=== PATIENT | female | born 1975 | race Caucasian/White ===

== ENCOUNTER → 2017-11-21 | Outpatient (CLI) | payer OTHER ==
[~2017-11-21] MED LIST: GADOBUTROL 7.5 MMOL/7.5 ML VIAL IV ONE; LISI2.5T PO; SITA1TAB11 PO
--- NOTE | 2017-11-21 16:03 | KCIC ---
MR of the left foot with and without contrast HISTORY: Diabetic ulcer of left foot, ulcer and proximal phalanx and MTP joint of the fifth digit for several weeks. TECHNIQUE: Routine multiplanar sequences are obtained. FINDINGS: Mild motion degradation. No evidence of bone destruction, acute fracture or marrow edema. There is subcutaneous edema and swelling along the dorsum of the foot. No abnormal fluid collection or drainable abscess. The tendons are intact. No significant tendon sheath fluid. Lisfranc ligament complex is intact as is tarsometatarsal alignment. IMPRESSION: 1. Edema/swelling along the dorsum of the foot. 2. No evidence of acute osteomyelitis or drainable abscess. Electronically signed by: Cory Steward MD (11/21/2017 3:59 PM) [facility]
== END | disposition home or self-care (01) ==
LOC: KCIC MRI 12:02
PROVIDERS: ATTEND Neuromusculoskeletal Medicine & OMM
DX: E11.621 Type 2 diabetes mellitus with foot ulcer (principal); R60.0 Localized edema
CPT/HCPCS: 73723; A9585

== ENCOUNTER 2019-09-07 23:20 | Inpatient (IN) | payer OTHER ==
[~2019-09-07] VITALS: Ht 162.6 cm; Wt 108.7 kg
[~2019-09-07 23:20] MED LIST changes: +ACET325T9 PO; +AMIT25TA PO; +ASPI325T11 PO; +ATOR40TA59 PO; +BETH10TA12 PO; +CARV12.511 PO; +CHOL100017 PO; +CLOP75TA PO; +CRESTOR5 MG PO; +CYCL10TA2 PO; +DIPH25CA58 PO; +DOXY100C2 PO; +ESCITALOPRAM OX10 MG PO; +GABA300C18 PO; +GABA600T7 PO; -GADOBUTROL 7.5 MMOL/7.5 ML VIAL IV ONE; +HYDR-2761 PO; +HYDR-2868 PO; +INSU100I11 SQ; +INSU100V8 SQ; +LISI-379 PO; +METF750T39 PO; +METO50TA6 PO; +PANT40TA77 PO; +TOPI25TA52 PO; +VITS42.55 TP; +ZINC56.713 TP
[2019-09-07] MEDS ORDERED: IV NORMAL SALINE 1000ML BAG 1,000 ML IV SCH (23:30)
--- NOTE | 2019-09-07 23:37 | PHYS DOC ---
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 Patient reportedly is at the nursing facility for stroke rehab and has been depressed because she has not been able to speak with her on the phone. Patient has reportedly not eaten or drank anything today. Additional history is limited as patient is just not answering questions. [] Review of Systems: Review of Systems: Constitutional: No reported fever or chills. [] Respiratory: No reported cough or shortness of breath. [] Cardiovascular: No reported chest pain or edema. [] GI: No reported vomiting or diarrhea. [] Neurologic: Positive left-sided weakness/deficits. [] Unable to fully assess review of systems as patient is not answering questions. Heart Score: Risk Factors: Risk Factors: DM, Current or recent (<one month) smoker, HTN, HLP, family history of CAD, obesity. Risk Scores: Score 0 - 3: 2.5% MACE over next 6 weeks - Discharge Home Score 4 - 6: 20.3% MACE over next 6 weeks - Admit for Clinical Observation Score 7 - 10: 72.7% MACE over next 6 weeks - Early Invasive Strategies Allergies: Allergies: Allergies Coded Allergies Type Severity Reaction Last Updated Verified Iodinated Contrast Media Allergy Intermediate 04/22/19 Yes Sulfa (Sulfonamide Antibiotics) Allergy Intermediate 04/22/19 Yes Physical Exam: PE: Constitutional: Well developed, well nourished, no acute distress, non-toxic appearance. [] HENT: Normocephalic, atraumatic, bilateral external ears normal, oropharynx moist, no oral exudates, nose normal. [] Eyes: PERRLA, EOMI, conjunctiva normal, no discharge. [] Neck: Normal range of motion, no tenderness, supple, no stridor. [] Cardiovascular: Regular rate and rhythm [] Lungs & Thorax: Bilateral breath sounds clear to auscultation [] Abdomen: Bowel sounds normal, soft, no tenderness. [] Skin: Warm, dry, no erythema, no rash. [] Extremities: No tenderness, no cyanosis, no clubbing, ROM intact, no edema. [] Neurologic: Awake and alert, nonverbal. [] Psychologic: Flattened affect with depressed mood. [] EKG: EKG: [] Radiology/Procedures: Radiology/Procedures: [] Course & Med Decision Making: Course & Med Decision Making Pertinent Labs and Imaging studies reviewed. (See chart for details) [] Dragon Disclaimer: Dragon Disclaimer: This electronic medical record was generated, in whole or in part, using a voice recognition dictation system. Departure Departure Impression: Primary Impression: Acute kidney failure Qualified Codes: N17.9 - Acute kidney failure, unspecified Additional Impressions: UTI (urinary tract infection) Qualified Codes: N39.0 - Urinary tract infection, site not specified Hypotension Qualified Codes: I95.9 - Hypotension, unspecified Severe dehydration Disposition: ADMITTED INPATIENT [facility] Condition: IMPROVED Referrals: CITLALLI DE LA FUENTE (PCP) CHRIS MACK Jr. DO Sep 07, 2019 23:37
[2019-09-08 00:12] LABS: BASO # 0.1 x10^3/uL (0.0-0.2); BASO % 1 % (0-3); EOS # 0.1 x10^3/uL (0.0-0.7); EOS % 1 % (0-3); HEMATOCRIT 35.5 % (36.0-47.0); HEMOGLOBIN 11.8 g/dL (12.0-15.5); LYMPH # 3.1 x10^3/uL (1.0-4.8); LYMPH % 25 % (24-48); MEAN CORPUSCULAR HEMOGLOBIN 30 pg (25-35); MEAN CORPUSCULAR HGB CONC 33 g/dL (31-37); MEAN CORPUSCULAR VOLUME 89 fL (79-100); MONO # 0.8 x10^3/uL (0.0-1.1); MONO % 7 % (0-9); NEUT # 8.2 x10^3/uL (1.8-7.7); NEUT % 67 % (31-73); PLATELET COUNT 322 x10^3/uL (140-400); RED BLOOD COUNT 3.99 x10^6/uL (3.50-5.40); RED CELL DISTRIBUTION WIDTH 14.8 % (11.5-14.5); WHITE BLOOD COUNT 12.3 x10^3/uL (4.0-11.0)
[2019-09-08 00:26] LABS: ALBUMIN 3.2 g/dL (3.4-5.0); ALBUMIN/GLOBULIN RATIO 0.8 (1.0-1.7); CALCIUM 6.4 mg/dL (8.5-10.1); CREATININE 8.3 mg/dL (0.6-1.0); GFR 5.2; MAGNESIUM 0.7 mg/dL (1.8-2.4); POTASSIUM 3.4 mmol/L (3.5-5.1); TOTAL BILIRUBIN 0.2 mg/dL (0.2-1.0)
[2019-09-08 00:50] LABS: BILIRUBIN,URINE NEGATIVE (NEG); CLARITY,URINE TURBID; NITRITE,URINE NEGATIVE (NEG); PROTEIN,URINE >=300 mg/dL (NEG-TRACE); UROBILINOGEN,URINE 0.2 mg/dL (0.2 mg/dL)
[2019-09-08 00:54] LABS: COLOR,URINE YELLOW
[2019-09-08 00:56] LABS: BACTERIA,URINE MODERATE /HPF (0-FEW); SQUAMOUS EPITHELIAL CELL,UR FEW /LPF; WBC,URINE TNTC /HPF (0-4)
[2019-09-08] MEDS ORDERED: ONDANSETRON PF 4 MG/2 ML VIAL. IV PRN (02:30)
[2019-09-08] MEDS ORDERED: cefTRIAXone IV Push 1 GM VIAL. IVP ONE (02:45)
[2019-09-08] MEDS ORDERED: MAGNESIUM SULFATE 2GM 50 ML IV ONE (02:45)
[2019-09-08] MEDS: IV NORMAL SALINE 1000ML BAG 1,000 ML IV SCH ×4 (02:51→22:02)
[2019-09-08] MEDS ORDERED: LABETALOL 20 MG/4 ML DISP.SYRIN. IVP ONE (03:00)
--- NOTE | 2019-09-08 03:30 | NUR ---
The patient, ARNOL DUMONT, 44 y/o, F admitted by ASHLEE YANCEY MD, was given written information regarding hospital policies, unit procedures and contact persons. patient was transferred to room at this time via ED bed, assisted by ED staff member. Valuables were checked and noted. Patient placed on tele at this time. patient is refusing to answer questions at this time, this RN will contact Ruthie Vanegas for more information about patient's history. This RN will continue to monitor the patient at this time.
[2019-09-08 03:49] VITALS: BP 122/61
[2019-09-08] MEDS ORDERED: ONDA4TAB7 PO (05:17)
[2019-09-08] MEDS ORDERED: LOPE2TAB27 PO (05:17)
[2019-09-08] MEDS ORDERED: HYDR453.3 TP (05:17)
[2019-09-08] MEDS ORDERED: CARV25TA2 PO (05:17)
[2019-09-08] MEDS ORDERED: LIDO700A21 TP (05:17)
[2019-09-08] MEDS ORDERED: GABA800T5 PO (05:17)
[2019-09-08] MEDS ORDERED: TIZA4TAB2 PO (05:17)
[2019-09-08] MEDS ORDERED: AMLO5TAB10 PO (05:17)
[2019-09-08] MEDS ORDERED: CHOL500021 PO (05:17)
[2019-09-08] MEDS ORDERED: TOPI25TA7 PO (05:17)
[2019-09-08] MEDS ORDERED: ASPI-630 PO (05:17)
[2019-09-08] MEDS ORDERED: MELA1TAB9 PO (05:17)
[2019-09-08] MEDS ORDERED: ACET500T68 PO (05:17)
--- NOTE | 2019-09-08 07:21 | EKG ---
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
[2019-09-08 07:43] VITALS: BP 82/39
--- NOTE | 2019-09-08 09:39 | RAD ---
RENAL COMPLETE BILATERAL History: Reason: acute renal failure / Spl. Instructions: / History: Comparison: None. Procedure: Transabdominal ultrasound images are obtained of the kidneys and bladder. Findings: Right kidney: measures 13.2 x 6.4 x 5.9 cm. Normal cortical echotexture. Corticomedullary differentiation is preserved. No hydronephrosis. Left kidney: measures 13.3 x 5.3 x 6.9 cm. Normal cortical echotexture. Corticomedullary differentiation is preserved. No hydronephrosis. Urinary bladder: Decompressed urinary bladder. IVC and aorta not well seen due to overlying bowel gas. IMPRESSION: 1. Unremarkable renal ultrasound. Electronically signed by: Kyler Dahl DO (09/08/2019 9:36 AM) [facility]
[2019-09-08] MEDS ORDERED: IV NORMAL SALINE 1000ML BAG 1,000 ML IV ONE (10:45)
[2019-09-08 10:56] VITALS: BP 92/42
--- NOTE | 2019-09-08 11:47 | PDOC2 ---
CONSULT Date of Consult Date of Consult DATE: 09/08/19 TIME: 11:28 Reason for Consult Reason for Consult: LESLIE Identification/Chief Complaint Chief Complaint Unable to Obtain, poor Historian, Hx of CVA x 2 per nursing Source Source: Chart review History of Present Illness Reason for Visit: Hx obtained from Chart review/ER note . Patient is a 44 year old CF who presents from nursing facility with report of low blood pressure all day long with pressures down into the 70s over 50s. Patient is at the nursing facility for stroke rehab, dced in July from [facility]. S he has been depressed because she has not been able to speak with her on the phone. Patient has reportedly not eaten or drank anything yesterday . Additional history is limited as patient is just not answering questions. On presentation Elevated Cr, UA cw UTI Past Medical History Cardiovascular: HTN, Hyperlipidemia Pulmonary: Pneumonia CENTRAL NERVOUS SYSTEM: Seizure GI: GERD Heme/Onc: No pertinent hx Hepatobiliary: No pertinent hx Psych: No pertinent hx Musculoskeletal: Osteoarthritis, Other Rheumatologic: No pertinent hx Infectious disease: No pertinent hx Renal/: No pertinent hx Endocrine: Diabetes Past Surgical History Past Surgical History: Total knee replacement Family History Family History: Hypertension Social History ALCOHOL: none Drugs: None Lives: with Family Current Problem List Problem List Problems Medical Problems: (1) Acute kidney failure Status: Acute (2) Hypotension Status: Acute (3) Severe dehydration Status: Acute (4) UTI (urinary tract infection) Status: Acute Current Medications Current Medications Current Medications Sodium Chloride 1,000 ml @ 1,000 mls/hr Q1H IV Last administered on 09/07/19at 00:40; Start 09/07/19 at 23:30; Stop 09/08/19 at 00:29; Status DC Ceftriaxone Sodium (Rocephin) 1 gm 1X ONCE IVP Last administered on 09/08/19at 02:50; Start 09/08/19 at 02:45; Stop 09/08/19 at 02:46; Status DC Magnesium Sulfate 50 ml @ 25 mls/hr 1X ONCE IV Last administered on 09/08/19at 02:51; Start 09/08/19 at 02:45; Stop 09/08/19 at 04:44; Status DC Ondansetron HCl (Zofran) 4 mg PRN Q8HRS PRN IV NAUSEA/VOMITING; Start 09/08/19 at 02:30; Stop 09/09/19 at 02:29 Sodium Chloride 1,000 ml @ 150 mls/hr Q6H40M IV Last administered on 09/08/19at 08:42; Start 09/08/19 at 02:02; Stop 09/09/19 at 02:01 Labetalol HCl (Normodyne Iv Push) 10 mg 1X ONCE IVP ; Start 09/08/19 at 03:00; Stop 09/08/19 at 03:02; Status DC Sodium Chloride 1,000 ml @ 1,000 mls/hr 1X ONCE IV Last administered on 09/08/19at 10:45; Start 09/08/19 at 10:45; Stop 09/08/19 at 11:44 Active Scripts Active Hydralazine Hcl 25 Mg Tablet 25 Mg PO Q6HRS 60 Days Atorvastatin Calcium 40 Mg Tablet 40 Mg PO QHS Reported Zofran (Ondansetron Hcl) 4 Mg Tablet 1 Tab PO PRN Q6HRS PRN Topiramate 25 Mg Tablet 3 Tab PO BID 30 Days Tizanidine Hcl 4 Mg Tablet 2 Tab PO QID Gabapentin 800 Mg Tablet 800 Mg PO TID Melatonin 1 Mg Tablet 1 Tab PO QHS 30 Days Loperamide (Loperamide Hcl) 2 Mg Tablet 2 Mg PO PRN Q4HRS Lidocaine PATCH (Lidocaine) 1 Each Adh..patch 1 Each TP DAILY REMOVE AFTER 12 HOURS Hydrocortisone 453.6 Gm Cream..g. 1 Jennifer TP PRN Q6HRS D3-50 (Cholecalciferol (Vitamin D3)) 50,000 Unit Capsule 1,000 Unit PO DAILY Carvedilol 25 Mg Tablet 25 Mg PO BIDWMEALS Aspirin 81 Mg Tab.chew 1 Tab PO DAILY Amlodipine Besylate 5 Mg Tablet 5 Mg PO DAILY Acetaminophen 500 Mg Tablet 1,000 Mg PO PRN Q4HRS PRN Escitalopram Oxalate 10 Mg Tablet 10 Mg PO DAILY Metformin Hcl Er (Metformin Hcl) 750 Mg Tab.er.24h 1 Tab PO BID 30 Days Protonix (Pantoprazole Sodium) 40 Mg Tablet.dr 40 Mg PO DAILYAC Zestril (Lisinopril) 40 Mg Tablet 40 Mg PO DAILY Allergies Allergies: Coded Allergies: Iodinated Contrast Media (Verified Allergy, Intermediate, 04/22/19) Sulfa (Sulfonamide Antibiotics) (Verified Allergy, Intermediate, 04/22/19) ROS Review of System Unable to Obtain 2/2 above Physical Exam Physical Exam General: NAD HEEN-OM dry Neck supple CV: S1S2 Lungs: Clear, Non labored Abdomen: Soft, NT Extremities: No LE edema Skin: No rashes Trammell +, No CVA or SP tenderness Neuro- Hx of CVA Vital Signs Vital Signs Date Time Temp Pulse Resp B/P (MAP) Pulse Ox O2 Delivery O2 Flow Rate FiO2 09/08/19 10:56 98.5 69 16 92/42 (59) 95 Room Air 98.5 Assessment & Plan LESLIE - ATN/2/2 Dehydration/UTI/ severe Hypotension Baseline Cr normal recently , per home med list on lisinopril,UOP marginal Renal US unremarkable, No Hydronephrosis Check CK, DC Lisinopril,Currently on IV NS , Supportive care , avoid Nephrotoxins , Daily BMP Metabolic acidosis- ?2/2 above, Labs from last night, Did not receive Bicarb per report Repeat labs, if persistent switch IVF to NaHCO3 gtt (D5W with 3 amps of Bicarb ) . Rubén RN and Dr. Sanchez On Topramax- MA known Side effect (Bicarb was norml in July) UTI- Abx per primary Hx of Seizures- hospitalized in July Acute superior posterior right frontal lobe infarct on the old stroke in July Hx of Hypertensive emergency in July 2019- BP 231/105 mmHg. Currently sever Hypotension at Rehab and Low BP at presentation as well , Improving Metabolic encephalopathy. DM. 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 Morbid obesity. Labs Labs Laboratory Tests Test 09/07/19 23:59 09/08/19 00:01 09/08/19 00:32 09/08/19 02:30 White Blood Count 12.3 x10^3/uL (4.0-11.0) Red Blood Count 3.99 x10^6/uL (3.50-5.40) Hemoglobin 11.8 g/dL (12.0-15.5) Hematocrit 35.5 % (36.0-47.0) Mean Corpuscular Volume 89 fL (79-100) Mean Corpuscular Hemoglobin 30 pg (25-35) Mean Corpuscular Hemoglobin Concent 33 g/dL (31-37) Red Cell Distribution Width 14.8 % (11.5-14.5) Platelet Count 322 x10^3/uL (140-400) Neutrophils (%) (Auto) 67 % (31-73) Lymphocytes (%) (Auto) 25 % (24-48) Monocytes (%) (Auto) 7 % (0-9) Eosinophils (%) (Auto) 1 % (0-3) Basophils (%) (Auto) 1 % (0-3) Neutrophils # (Auto) 8.2 x10^3/uL (1.8-7.7) Lymphocytes # (Auto) 3.1 x10^3/uL (1.0-4.8) Monocytes # (Auto) 0.8 x10^3/uL (0.0-1.1) Eosinophils # (Auto) 0.1 x10^3/uL (0.0-0.7) Basophils # (Auto) 0.1 x10^3/uL (0.0-0.2) Sodium Level 139 mmol/L (136-145) Potassium Level 3.4 mmol/L (3.5-5.1) Chloride Level 103 mmol/L (98-107) Carbon Dioxide Level 11 mmol/L (21-32) Anion Gap 25 (6-14) Blood Urea Nitrogen 51 mg/dL (7-20) Creatinine 8.3 mg/dL (0.6-1.0) Estimated GFR (Cockcroft-Gault) 5.2 BUN/Creatinine Ratio 6 (6-20) Glucose Level 93 mg/dL (70-99) Calcium Level 6.4 mg/dL (8.5-10.1) Magnesium Level 0.7 mg/dL (1.8-2.4) Total Bilirubin 0.2 mg/dL (0.2-1.0) Aspartate Amino Transf (AST/SGOT) 13 U/L (15-37) Alanine Aminotransferase (ALT/SGPT) 14 U/L (14-59) Alkaline Phosphatase 97 U/L (46-116) Troponin I Quantitative < 0.017 ng/mL (0.000-0.055) Total Protein 7.0 g/dL (6.4-8.2) Albumin 3.2 g/dL (3.4-5.0) Albumin/Globulin Ratio 0.8 (1.0-1.7) Phosphorus Level 8.1 mg/dL (2.6-4.7) Urine Collection Type U cath Urine Color Yellow Urine Clarity Turbid Urine pH 6.0 (<5.0-8.0) Urine Specific [place] 1.025 (1.000-1.030) Urine Protein >=300 mg/dL (NEG-TRACE) Urine Glucose (UA) Negative mg/dL (NEG) Urine Ketones (Stick) Trace mg/dL (NEG) Urine Blood Small (NEG) Urine Nitrite Negative (NEG) Urine Bilirubin Negative (NEG) Urine Urobilinogen Dipstick 0.2 mg/dL (0.2 mg/dL) Urine Leukocyte Esterase Large (NEG) Urine RBC 1-2 /HPF (0-2) Urine WBC Tntc /HPF (0-4) Urine Squamous Epithelial Cells Few /LPF Urine Transitional Epithelial Cells Occ /LPF Urine Bacteria Moderate /HPF (0-FEW) Urine Mucus Slight /LPF Lactic Acid Level 1.8 mmol/L (0.4-2.0) Test 09/08/19 07:07 09/08/19 10:00 Glucose (Fingerstick) 85 mg/dL (70-99) Urine Random Creatinine 122.3 mg/dL (Not Establ.) Laboratory Tests Test 09/07/19 23:59 09/08/19 00:01 09/08/19 00:32 09/08/19 02:30 White Blood Count 12.3 x10^3/uL (4.0-11.0) Red Blood Count 3.99 x10^6/uL (3.50-5.40) Hemoglobin 11.8 g/dL (12.0-15.5) Hematocrit 35.5 % (36.0-47.0) Mean Corpuscular Volume 89 fL (79-100) Mean Corpuscular Hemoglobin 30 pg (25-35) Mean Corpuscular Hemoglobin Concent 33 g/dL (31-37) Red Cell Distribution Width 14.8 % (11.5-14.5) Platelet Count 322 x10^3/uL (140-400) Neutrophils (%) (Auto) 67 % (31-73) Lymphocytes (%) (Auto) 25 % (24-48) Monocytes (%) (Auto) 7 % (0-9) Eosinophils (%) (Auto) 1 % (0-3) Basophils (%) (Auto) 1 % (0-3) Neutrophils # (Auto) 8.2 x10^3/uL (1.8-7.7) Lymphocytes # (Auto) 3.1 x10^3/uL (1.0-4.8) Monocytes # (Auto) 0.8 x10^3/uL (0.0-1.1) Eosinophils # (Auto) 0.1 x10^3/uL (0.0-0.7) Basophils # (Auto) 0.1 x10^3/uL (0.0-0.2) Sodium Level 139 mmol/L (136-145) Potassium Level 3.4 mmol/L (3.5-5.1) Chloride Level 103 mmol/L (98-107) Carbon Dioxide Level 11 mmol/L (21-32) Anion Gap 25 (6-14) Blood Urea Nitrogen 51 mg/dL (7-20) Creatinine 8.3 mg/dL (0.6-1.0) Estimated GFR (Cockcroft-Gault) 5.2 BUN/Creatinine Ratio 6 (6-20) Glucose Level 93 mg/dL (70-99) Calcium Level 6.4 mg/dL (8.5-10.1) Magnesium Level 0.7 mg/dL (1.8-2.4) Total Bilirubin 0.2 mg/dL (0.2-1.0) Aspartate Amino Transf (AST/SGOT) 13 U/L (15-37) Alanine Aminotransferase (ALT/SGPT) 14 U/L (14-59) Alkaline Phosphatase 97 U/L (46-116) Troponin I Quantitative < 0.017 ng/mL (0.000-0.055) Total Protein 7.0 g/dL (6.4-8.2) Albumin 3.2 g/dL (3.4-5.0) Albumin/Globulin Ratio 0.8 (1.0-1.7) Phosphorus Level 8.1 mg/dL (2.6-4.7) Urine Collection Type U cath Urine Color Yellow Urine Clarity Turbid Urine pH 6.0 (<5.0-8.0) Urine Specific [place] 1.025 (1.000-1.030) Urine Protein >=300 mg/dL (NEG-TRACE) Urine Glucose (UA) Negative mg/dL (NEG) Urine Ketones (Stick) Trace mg/dL (NEG) Urine Blood Small (NEG) Urine Nitrite Negative (NEG) Urine Bilirubin Negative (NEG) Urine Urobilinogen Dipstick 0.2 mg/dL (0.2 mg/dL) Urine Leukocyte Esterase Large (NEG) Urine RBC 1-2 /HPF (0-2) Urine WBC Tntc /HPF (0-4) Urine Squamous Epithelial Cells Few /LPF Urine Transitional Epithelial Cells Occ /LPF Urine Bacteria Moderate /HPF (0-FEW) Urine Mucus Slight /LPF Lactic Acid Level 1.8 mmol/L (0.4-2.0) Test 09/08/19 07:07 09/08/19 10:00 Glucose (Fingerstick) 85 mg/dL (70-99) Urine Random Creatinine 122.3 mg/dL (Not Establ.) Review All relevant outside records, renal labs, imaging studies, telemetry/EKG's were reviewed. Images Images Renal US Right kidney: measures 13.2 x 6.4 x 5.9 cm. Normal cortical echotexture. Corticomedullary differentiation is preserved. No hydronephrosis. Left kidney: measures 13.3 x 5.3 x 6.9 cm. Normal cortical echotexture. Corticomedullary differentiation is preserved. No hydronephrosis. Urinary bladder: Decompressed urinary bladder. IVC and aorta not well seen due to overlying bowel gas. IMPRESSION: 1. Unremarkable renal ultrasound. JARAD PACKER MD Sep 08, 2019 11:47
--- NOTE | 2019-09-08 11:48 | NUR ---
SS following for discharge planning. SS reviewed pt chart and discussed with pt RN. Pt is LTC resident from [facility] in [place], ; fax [phone]. SS contacted [facility] and verified pt's previous placement. SS spoke with Hernandez at [facility] and he requested COVID19 test prior to returning. Test ordered. SS will continue to follow for discharge planning.
--- NOTE | 2019-09-08 14:20 | PDOC1 ---
History and Physical Date of Admission Date of Admission September 08, 2019 Identification/Chief Complaint Chief Complaint Sent by jail Source Source: Chart review History of Present Illness History of Present Illness Patient is a 44-year-old female with past medical history of CVA diabetes type 2 high cholesterol and hypertension who at the present time is unable to provide any details of her history. The patient does seem to be able to speak. She was admitted in July of this year with history of seizures she was seen by neurology at that time and started on Keppra. There seems to be an acute on chronic infarction in the superior posterior right frontal lobe with no hemorrhage or mass-effect at that time, medication adjustments were done during that admission and she was tapered off her Keppra and gabapentin and started on topiramate. She also had Plavix added to her aspirin in order to address and try to minimize the chance of her having a new event. According to ER report the patient is suffering from depression given that due to her stroke she has been unable to return homeDue to her previous event. The patient on her last hospital stay was oriented to time place and person she did have some left central facial weakness and there were no cerebellar signs identified. Today the patient is laying in bed in no acute distress. Patient seems severely dehydrated patient reports of having low blood pressure she was found to have some bacteria on her urinalysis initially does not seem toxic looking on physical exam and her lactic acid was within normal range upon admission despite her hypovolemia. She was also found to be in acute renal failure and her encephalopathy could be a combination of uremia and her underlying central nervous system pathology. She will be admitted for further evaluation and treatment Past Medical History Cardiovascular: HTN, Hyperlipidemia Pulmonary: Pneumonia CENTRAL NERVOUS SYSTEM: Seizure GI: GERD Heme/Onc: No pertinent hx Hepatobiliary: No pertinent hx Psych: No pertinent hx Rheumatologic: No pertinent hx Infectious disease: No pertinent hx Renal/: No pertinent hx Endocrine: Diabetes Past Surgical History Past Surgical History: Total knee replacement Family History Family History: Hypertension Social History ALCOHOL: none Drugs: None Current Problem List Problem List Problems Medical Problems: (1) Acute kidney failure Status: Acute (2) Hypotension Status: Acute (3) Severe dehydration Status: Acute (4) UTI (urinary tract infection) Status: Acute Current Medications Current Medications Current Medications Medications (Trade) Dose Ordered Sig/Jace Start Time Stop Time Status Last Admin Dose Admin Ceftriaxone Sodium (Rocephin) 1 gm 1X ONCE 09/08/19 02:45 09/08/19 02:46 DC 09/08/19 02:50 1 GM Labetalol HCl (Normodyne Iv Push) 10 mg 1X ONCE 09/08/19 03:00 09/08/19 03:02 DC Magnesium Sulfate 50 ml @ 25 mls/hr 1X ONCE 09/08/19 02:45 09/08/19 04:44 DC 09/08/19 02:51 25 MLS/HR Ondansetron HCl (Zofran) 4 mg PRN Q8HRS PRN 09/08/19 02:30 09/09/19 02:29 Sodium Chloride 1,000 ml @ 1,000 mls/hr 1X ONCE 09/08/19 10:45 09/08/19 11:44 DC 09/08/19 10:45 1,000 MLS/HR Allergies Allergies Allergies Coded Allergies Type Severity Reaction Last Updated Verified Iodinated Contrast Media Allergy Intermediate 04/22/19 Yes Sulfa (Sulfonamide Antibiotics) Allergy Intermediate 04/22/19 Yes ROS Review of System Reviewed but unable to assess due to patient being aphasic Physical Exam Physical Exam GEN.: No apparent distress. Alert and oriented. HEENT: Head is normocephalic, atraumatic NECK: Supple. LUNGS: Clear to auscultation. HEART: RRR, S1, S2 present. Peripheral pulses intact ABDOMEN: Soft, nontender. Positive bowel sounds. EXTREMITIES: Without any cyanosis. NEUROLOGIC: Cranial nerves II to XII seem to be grossly intact patient is moving all extremities PSYCHIATRIC: Unable to evaluate SKIN: No ulcerations Vitals Vitals Vital Signs Date Time Temp Pulse Resp B/P (MAP) Pulse Ox O2 Delivery O2 Flow Rate FiO2 09/08/19 10:56 98.5 69 16 92/42 (59) 95 Room Air 98.5 Labs Labs Laboratory Tests Test 09/07/19 23:59 09/08/19 00:01 09/08/19 00:32 09/08/19 02:30 White Blood Count 12.3 x10^3/uL (4.0-11.0) Red Blood Count 3.99 x10^6/uL (3.50-5.40) Hemoglobin 11.8 g/dL (12.0-15.5) Hematocrit 35.5 % (36.0-47.0) Mean Corpuscular Volume 89 fL (79-100) Mean Corpuscular Hemoglobin 30 pg (25-35) Mean Corpuscular Hemoglobin Concent 33 g/dL (31-37) Red Cell Distribution Width 14.8 % (11.5-14.5) Platelet Count 322 x10^3/uL (140-400) Neutrophils (%) (Auto) 67 % (31-73) Lymphocytes (%) (Auto) 25 % (24-48) Monocytes (%) (Auto) 7 % (0-9) Eosinophils (%) (Auto) 1 % (0-3) Basophils (%) (Auto) 1 % (0-3) Neutrophils # (Auto) 8.2 x10^3/uL (1.8-7.7) Lymphocytes # (Auto) 3.1 x10^3/uL (1.0-4.8) Monocytes # (Auto) 0.8 x10^3/uL (0.0-1.1) Eosinophils # (Auto) 0.1 x10^3/uL (0.0-0.7) Basophils # (Auto) 0.1 x10^3/uL (0.0-0.2) Sodium Level 139 mmol/L (136-145) Potassium Level 3.4 mmol/L (3.5-5.1) Chloride Level 103 mmol/L (98-107) Carbon Dioxide Level 11 mmol/L (21-32) Anion Gap 25 (6-14) Blood Urea Nitrogen 51 mg/dL (7-20) Creatinine 8.3 mg/dL (0.6-1.0) Estimated GFR (Cockcroft-Gault) 5.2 BUN/Creatinine Ratio 6 (6-20) Glucose Level 93 mg/dL (70-99) Calcium Level 6.4 mg/dL (8.5-10.1) Magnesium Level 0.7 mg/dL (1.8-2.4) Total Bilirubin 0.2 mg/dL (0.2-1.0) Aspartate Amino Transf (AST/SGOT) 13 U/L (15-37) Alanine Aminotransferase (ALT/SGPT) 14 U/L (14-59) Alkaline Phosphatase 97 U/L (46-116) Troponin I Quantitative < 0.017 ng/mL (0.000-0.055) Total Protein 7.0 g/dL (6.4-8.2) Albumin 3.2 g/dL (3.4-5.0) Albumin/Globulin Ratio 0.8 (1.0-1.7) Phosphorus Level 8.1 mg/dL (2.6-4.7) Urine Collection Type U cath Urine Color Yellow Urine Clarity Turbid Urine pH 6.0 (<5.0-8.0) Urine Specific [place] 1.025 (1.000-1.030) Urine Protein >=300 mg/dL (NEG-TRACE) Urine Glucose (UA) Negative mg/dL (NEG) Urine Ketones (Stick) Trace mg/dL (NEG) Urine Blood Small (NEG) Urine Nitrite Negative (NEG) Urine Bilirubin Negative (NEG) Urine Urobilinogen Dipstick 0.2 mg/dL (0.2 mg/dL) Urine Leukocyte Esterase Large (NEG) Urine RBC 1-2 /HPF (0-2) Urine WBC Tntc /HPF (0-4) Urine Squamous Epithelial Cells Few /LPF Urine Transitional Epithelial Cells Occ /LPF Urine Bacteria Moderate /HPF (0-FEW) Urine Mucus Slight /LPF Lactic Acid Level 1.8 mmol/L (0.4-2.0) Test 09/08/19 07:07 09/08/19 10:00 09/08/19 11:23 Glucose (Fingerstick) 85 mg/dL (70-99) 78 mg/dL (70-99) Urine Random Creatinine 122.3 mg/dL (Not Establ.) Laboratory Tests Test 09/07/19 23:59 09/08/19 00:01 09/08/19 00:32 09/08/19 02:30 White Blood Count 12.3 x10^3/uL (4.0-11.0) Red Blood Count 3.99 x10^6/uL (3.50-5.40) Hemoglobin 11.8 g/dL (12.0-15.5) Hematocrit 35.5 % (36.0-47.0) Mean Corpuscular Volume 89 fL (79-100) Mean Corpuscular Hemoglobin 30 pg (25-35) Mean Corpuscular Hemoglobin Concent 33 g/dL (31-37) Red Cell Distribution Width 14.8 % (11.5-14.5) Platelet Count 322 x10^3/uL (140-400) Neutrophils (%) (Auto) 67 % (31-73) Lymphocytes (%) (Auto) 25 % (24-48) Monocytes (%) (Auto) 7 % (0-9) Eosinophils (%) (Auto) 1 % (0-3) Basophils (%) (Auto) 1 % (0-3) Neutrophils # (Auto) 8.2 x10^3/uL (1.8-7.7) Lymphocytes # (Auto) 3.1 x10^3/uL (1.0-4.8) Monocytes # (Auto) 0.8 x10^3/uL (0.0-1.1) Eosinophils # (Auto) 0.1 x10^3/uL (0.0-0.7) Basophils # (Auto) 0.1 x10^3/uL (0.0-0.2) Sodium Level 139 mmol/L (136-145) Potassium Level 3.4 mmol/L (3.5-5.1) Chloride Level 103 mmol/L (98-107) Carbon Dioxide Level 11 mmol/L (21-32) Anion Gap 25 (6-14) Blood Urea Nitrogen 51 mg/dL (7-20) Creatinine 8.3 mg/dL (0.6-1.0) Estimated GFR (Cockcroft-Gault) 5.2 BUN/Creatinine Ratio 6 (6-20) Glucose Level 93 mg/dL (70-99) Calcium Level 6.4 mg/dL (8.5-10.1) Magnesium Level 0.7 mg/dL (1.8-2.4) Total Bilirubin 0.2 mg/dL (0.2-1.0) Aspartate Amino Transf (AST/SGOT) 13 U/L (15-37) Alanine Aminotransferase (ALT/SGPT) 14 U/L (14-59) Alkaline Phosphatase 97 U/L (46-116) Troponin I Quantitative < 0.017 ng/mL (0.000-0.055) Total Protein 7.0 g/dL (6.4-8.2) Albumin 3.2 g/dL (3.4-5.0) Albumin/Globulin Ratio 0.8 (1.0-1.7) Phosphorus Level 8.1 mg/dL (2.6-4.7) Urine Collection Type U cath Urine Color Yellow Urine Clarity Turbid Urine pH 6.0 (<5.0-8.0) Urine Specific [place] 1.025 (1.000-1.030) Urine Protein >=300 mg/dL (NEG-TRACE) Urine Glucose (UA) Negative mg/dL (NEG) Urine Ketones (Stick) Trace mg/dL (NEG) Urine Blood Small (NEG) Urine Nitrite Negative (NEG) Urine Bilirubin Negative (NEG) Urine Urobilinogen Dipstick 0.2 mg/dL (0.2 mg/dL) Urine Leukocyte Esterase Large (NEG) Urine RBC 1-2 /HPF (0-2) Urine WBC Tntc /HPF (0-4) Urine Squamous Epithelial Cells Few /LPF Urine Transitional Epithelial Cells Occ /LPF Urine Bacteria Moderate /HPF (0-FEW) Urine Mucus Slight /LPF Lactic Acid Level 1.8 mmol/L (0.4-2.0) Test 09/08/19 07:07 09/08/19 10:00 09/08/19 11:23 Glucose (Fingerstick) 85 mg/dL (70-99) 78 mg/dL (70-99) Urine Random Creatinine 122.3 mg/dL (Not Establ.) Images Images [id number] [place] [address] IMAGING REPORT Signed PATIENT: ARNOL DUMONT LACCOUNT: [id number] : 1975 LOCATION: [facility] AGE: 44 SEX: F EXAM STATUS: ADM IN ORD. PHYSICIAN: JAYNE MILLAN MD REASON: acute renal failure PROCEDURE: RENAL COMPLETE BILATERAL RENAL COMPLETE BILATERAL History: Reason: acute renal failure / Spl. Instructions: / History: Comparison: None. Procedure: Transabdominal ultrasound images are obtained of the kidneys and bladder. Findings: Right kidney: measures 13.2 x 6.4 x 5.9 cm. Normal cortical echotexture. Corticomedullary differentiation is preserved. No hydronephrosis. Left kidney: measures 13.3 x 5.3 x 6.9 cm. Normal cortical echotexture. Corticomedullary differentiation is preserved. No hydronephrosis. Urinary bladder: Decompressed urinary bladder. IVC and aorta not well seen due to overlying bowel gas. IMPRESSION: 1. Unremarkable renal ultrasound. Electronically signed by: Kyler Dahl DO (09/08/2019 9:36 AM) [facility] VTE Prophylaxis Ordered VTE Prophylaxis Devices: Yes VTE Pharmacological Prophylaxi: No Assessment/Plan Assessment/Plan Acute encephalopathy, etiology undetermined which may be central etiology versus uremia (metabolic) Leukocytosis most likely secondary to hemoconcentration with no focus of infe ction except for a suspected UTI Hypokalemia Acute renal failure, vasomotor etiology most likely High anion gap metabolic acidosis History of diabetes mellitus type 2 Essential hypertension History of CVA Plan We will do CAT scan of the head noncontrast Renal ultrasound Urine electrolytes Consult nephrology Resume home medications once available for review Follow urinary output FEN as per nephrology individual pension consultant Reassess in the a.m. Further recommendations based on the clinical course DVT prophylaxis with SCDs Justicifation of Admission Dx: Justifications for Admission: Justification of Admission Dx: Yes Sepsis: Hemodynamic Instability JAYNE MILLAN MD Sep 08, 2019 14:20
[2019-09-08 14:26] LABS: ALBUMIN 3.1 g/dL (3.4-5.0); CREATININE 8.5 mg/dL (0.6-1.0); GFR 5.1; PHOSPHORUS 7.6 mg/dL (2.6-4.7); POTASSIUM 3.2 mmol/L (3.5-5.1)
[2019-09-08 15:00] VITALS: BP 104/53
[2019-09-08] MEDS ORDERED: CALCIUM CHLORIDE 2,000 MG in IV NORMAL SALINE 100ML 100 ML IV ONE (15:00)
[2019-09-08] MEDS: SODIUM BICARBONATE VIAL 100 MEQ in IV DEXTROSE 5% 1,000 ML IV SCH (15:59)
[2019-09-08] MEDS ORDERED: CALCIUM GLUCONATE 2,000 MG in IV NORMAL SALINE 100ML 100 ML IV ONE (16:00)
--- NOTE | 2019-09-08 16:11 | RAD ---
CT of the head without contrast HISTORY: Encephalopathy Comparison study: CT of the head without contrast July 30, 2019 Discussion: CT scan of the brain was done without contrast. There is no intracranial hemorrhage. Ventricles are unchanged in size. Similar-appearing right parasagittal frontal and parietal lobe encephalomalacia. No evidence of subacute territorial infarct is identified. No evidence of new chronic infarct is seen.. There is no shift of the midline. No acute midline shift is identified. No acute osseous changes are seen. IMPRESSION: Stable exam without evidence of acute intracranial abnormality PQRS Compliance Statement: One or more of the following individualized dose reduction techniques were utilized for this examination: 1. Automated exposure control 2. Adjustment of the mA and/or kV according to patient size 3. Use of iterative reconstruction technique Electronically signed by: Alfie Raya MD (09/08/2019 4:08 PM) [id number]
[2019-09-08 19:37] VITALS: BP 98/59
[2019-09-08] MEDS: NYSTATIN TOPICAL POWDER 15GM BOTTLE. TP SCH (20:31)
--- NOTE | 2019-09-08 21:00 | NUR ---
Patient was bladder scanned at this time, resulted 0 ml. This RN scanned patient 2 additional times, result still 0 ml. This RN will continue to monitor the patient at this time.
[2019-09-08 23:27] VITALS: BP 136/62
[2019-09-09 03:40] VITALS: BP 151/71
[2019-09-09] MEDS: SODIUM BICARBONATE VIAL 100 MEQ in IV DEXTROSE 5% 1,000 ML IV SCH ×2 (03:43→13:30)
[2019-09-09 04:51] LABS: BASO # 0.1 x10^3/uL (0.0-0.2); BASO % 1 % (0-3); EOS % 0 % (0-3); HEMATOCRIT 35.1 % (36.0-47.0); HEMOGLOBIN 11.4 g/dL (12.0-15.5); LYMPH # 1.4 x10^3/uL (1.0-4.8); LYMPH % 8 % (24-48); MEAN CORPUSCULAR HEMOGLOBIN 29 pg (25-35); MEAN CORPUSCULAR HGB CONC 32 g/dL (31-37); MEAN CORPUSCULAR VOLUME 90 fL (79-100); MONO # 1.3 x10^3/uL (0.0-1.1); MONO % 7 % (0-9); NEUT # 14.4 x10^3/uL (1.8-7.7); NEUT % 84 % (31-73); PLATELET COUNT 284 x10^3/uL (140-400); RED CELL DISTRIBUTION WIDTH 15.1 % (11.5-14.5); WHITE BLOOD COUNT 17.3 x10^3/uL (4.0-11.0)
--- NOTE | 2019-09-09 05:00 | NUR ---
This RN bladder scanned the patient at this time. After multiple scans the highest amount scanned was 5 mls. This RN will continue to monitor the patient at this time.
[2019-09-09 05:15] LABS: ALBUMIN 3.1 g/dL (3.4-5.0); CALCIUM 6.4 mg/dL (8.5-10.1); CREATININE 9.1 mg/dL (0.6-1.0); GFR 4.7
[2019-09-09] MEDS ORDERED: cefTRIAXone IV Push 1 GM VIAL. IVP SCH ×2 (06:00→09:15)
[2019-09-09 06:37] LABS: BASE EXCESS ABG -15 mmol/L (-3-3); HCO3 ABG 10 mmol/L (21-28); PCO2 ABG 24 mmHg (35-46); PO2 ABG 94 mmHg (75-108); SAT O2 ABG 96 % (92-99)
[2019-09-09 06:39] LABS: FIO2 ABG 21
[2019-09-09 07:00] VITALS: BP 149/78
[2019-09-09] MEDS: CARVEDILOL 12.5 MG TABLET. PO SCH ×3 (08:00→17:00)
[2019-09-09] MEDS ORDERED: HYDROCORTISONE 1% TOPICAL CREAM 30GM TUBE. TP PRN (08:00)
[2019-09-09] MEDS: PANTOPRAZOLE 40 MG TABLET.DR. PO SCH ×2 (08:00→09:45)
[2019-09-09 08:03] LABS: % LYMPHS 3 % (24-48); % MONOS 1 % (0-10); % SEGS 96 % (35-66); PLT ESTIMATE ADEQUATE (ADEQUATE)
[2019-09-09] MEDS: CITALOPRAM 20 MG TABLET. PO SCH ×2 (09:00→09:44)
[2019-09-09] MEDS: amLODIPine BESYLATE 5 MG TABLET PO SCH ×2 (09:00→09:44)
[2019-09-09] MEDS: ASPIRIN CHEWABLE 81 MG TABLET. PO SCH ×2 (09:00→09:44)
[2019-09-09] MEDS: GABAPENTIN 400 MG CAPSULE. PO SCH ×2 (09:00→09:44)
[2019-09-09] MEDS: tiZANidine 4 MG TABLET. PO SCH ×5 (09:00→21:00)
--- NOTE | 2019-09-09 09:09 | PDOC ---
SUBJECTIVE ROS Stable, same as yesterday, Non verbal OBJECTIVE Vital Signs Vital Signs Date Time Temp Pulse Resp B/P (MAP) Pulse Ox O2 Delivery O2 Flow Rate FiO2 09/09/19 07:00 98.3 74 20 149/78 (101) 97 Room Air 98.3 I & 0 Intake and Output0 09/09/19 07:00 Intake Total 0 ml Output Total 75 ml Balance -75 ml Intake Oral 0 ml Output Urine Total 75 ml PHYSICAL EXAM Physical Exam General: NAD HEEN-OM dry Neck supple CV: S1S2 Lungs: Clear, Non labored Abdomen: Soft, NT Extremities: No LE edema Skin: No rashes Trammell +, No CVA or SP tenderness Neuro- Hx of CVA DIAGNOSIS/ASSESSMENT Assessment & Plan LESLIE - ATN/2/2 Dehydration/UTI/ severe Hypotension Baseline Cr normal recently , per home med list on lisinopril,UOP marginal Renal US unremarkable, No Hydronephrosis No Improvement in renal function, Abnormal E-Lytes, Oligoanuric, Recommend Dialysis , temp HDC placement , Rubén RN and Dr. Sanchez Metabolic acidosis- ?2/2 above, Labs from last night, Did not receive Bicarb per report No improvement with NaHCo3 gtt (D5W with 3 amps of Bicarb ) . HD today On Topramax- MA known Side effect (Bicarb was normal in July) HypoCalcemia - replaced IV yesterday, Dialysate Ca discussed with Michelle HyperPhos-monitor after Dialysis treatments UTI- Abx per primary Hx of Seizures- hospitalized in July Acute superior posterior right frontal lobe infarct on the old stroke in July Hx of Hypertensive emergency in July 2019- BP 231/105 mmHg. Currently sever Hypotension at Rehab and Low BP at presentation as well , Improving Metabolic encephalopathy. DM. 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 Morbid obesity. COMMENT/RELEVANT DATA Meds Current Medications Medications (Trade) Dose Ordered Sig/Jace Start Time Stop Time Status Last Admin Dose Admin Amlodipine Besylate (Norvasc) 5 mg DAILY 09/09/19 09:00 Aspirin (Aspirin Chewable) 81 mg DAILY 09/09/19 09:00 Atorvastatin Calcium (Lipitor) 40 mg QHS 09/09/19 21:00 Calcium Chloride 2000 mg/Sodium Chloride 120 ml @ 240 mls/hr 1X ONCE 09/08/19 15:00 09/08/19 15:39 DC Calcium Gluconate 2000 mg/Sodium Chloride 120 ml @ 220 mls/hr 1X ONCE 09/08/19 16:00 09/08/19 16:32 DC 09/08/19 15:58 220 MLS/HR Carvedilol (Coreg) 25 mg BIDWMEALS 09/09/19 08:00 Ceftriaxone Sodium (Rocephin) 1 gm Q24H 09/09/19 06:00 09/09/19 06:31 1 GM Citalopram Hydrobromide (CeleXA) 20 mg DAILY 09/09/19 09:00 Gabapentin (Neurontin) 800 mg DAILY 09/09/19 09:00 Hydralazine HCl (Apresoline) 25 mg Q6HRS 09/09/19 12:00 Hydrocortisone (Cortaid) 1 gina PRN Q6HRS PRN 09/09/19 08:00 Labetalol HCl (Normodyne Iv Push) 10 mg 1X ONCE 09/08/19 03:00 09/08/19 03:02 DC Lidocaine (Lidoderm) 1 patch DAILY 09/09/19 09:00 Magnesium Sulfate 50 ml @ 25 mls/hr 1X ONCE 09/08/19 02:45 09/08/19 04:44 DC 09/08/19 02:51 25 MLS/HR Miscellaneous (Lidoderm Patch Removal) 1 ea QHS 09/09/19 21:00 Non-Formulary Medication (Melatonin ) 1 tab QHS 09/09/19 21:00 UNV Nystatin (Nystop) 1 gina BID 09/08/19 21:00 09/08/19 20:31 1 GINA Ondansetron HCl (Zofran) 4 mg PRN Q8HRS PRN 09/08/19 02:30 09/09/19 02:29 DC Pantoprazole Sodium (Protonix) 40 mg DAILYAC 09/09/19 08:00 Sodium Bicarbonate 100 meq/Dextrose 1,100 ml @ 100 mls/hr Q11H 09/08/19 15:30 09/09/19 03:43 100 MLS/HR Sodium Chloride 1,000 ml @ 1,000 mls/hr 1X ONCE 09/08/19 10:45 09/08/19 11:44 DC 09/08/19 10:45 1,000 MLS/HR Tizanidine HCl (Zanaflex) 8 mg QID 09/09/19 09:00 Lab Laboratory Tests Test 09/08/19 10:00 09/08/19 11:23 09/08/19 13:25 09/08/19 16:25 Urine Random Creatinine 122.3 mg/dL (Not Establ.) Glucose (Fingerstick) 78 mg/dL (70-99) 82 mg/dL (70-99) Sodium Level 140 mmol/L (136-145) Potassium Level 3.2 mmol/L (3.5-5.1) Chloride Level 106 mmol/L (98-107) Carbon Dioxide Level 10 mmol/L (21-32) Anion Gap 24 (6-14) Blood Urea Nitrogen 49 mg/dL (7-20) Creatinine 8.5 mg/dL (0.6-1.0) Estimated GFR (Cockcroft-Gault) 5.1 Glucose Level 89 mg/dL (70-99) Calcium Level 6.0 mg/dL (8.5-10.1) Phosphorus Level 7.6 mg/dL (2.6-4.7) Creatine Kinase 352 U/L (26-192) Albumin 3.1 g/dL (3.4-5.0) Test 09/08/19 20:07 09/09/19 03:30 09/09/19 07:21 Glucose (Fingerstick) 113 mg/dL (70-99) 187 mg/dL (70-99) White Blood Count 17.3 x10^3/uL (4.0-11.0) Red Blood Count 3.90 x10^6/uL (3.50-5.40) Hemoglobin 11.4 g/dL (12.0-15.5) Hematocrit 35.1 % (36.0-47.0) Mean Corpuscular Volume 90 fL (79-100) Mean Corpuscular Hemoglobin 29 pg (25-35) Mean Corpuscular Hemoglobin Concent 32 g/dL (31-37) Red Cell Distribution Width 15.1 % (11.5-14.5) Platelet Count 284 x10^3/uL (140-400) Neutrophils (%) (Auto) 84 % (31-73) Lymphocytes (%) (Auto) 8 % (24-48) Monocytes (%) (Auto) 7 % (0-9) Eosinophils (%) (Auto) 0 % (0-3) Basophils (%) (Auto) 1 % (0-3) Neutrophils # (Auto) 14.4 x10^3/uL (1.8-7.7) Lymphocytes # (Auto) 1.4 x10^3/uL (1.0-4.8) Monocytes # (Auto) 1.3 x10^3/uL (0.0-1.1) Eosinophils # (Auto) 0.0 x10^3/uL (0.0-0.7) Basophils # (Auto) 0.1 x10^3/uL (0.0-0.2) Segmented Neutrophils % 96 % (35-66) Lymphocytes % 3 % (24-48) Monocytes % 1 % (0-10) Platelet Estimate Adequate (ADEQUATE) Sodium Level 139 mmol/L (136-145) Potassium Level 3.0 mmol/L (3.5-5.1) Chloride Level 102 mmol/L (98-107) Carbon Dioxide Level 11 mmol/L (21-32) Anion Gap 26 (6-14) Blood Urea Nitrogen 50 mg/dL (7-20) Creatinine 9.1 mg/dL (0.6-1.0) Estimated GFR (Cockcroft-Gault) 4.7 Glucose Level 147 mg/dL (70-99) Calcium Level 6.4 mg/dL (8.5-10.1) Phosphorus Level 7.0 mg/dL (2.6-4.7) Albumin 3.1 g/dL (3.4-5.0) Results All relevant outside records, renal labs, imaging studies, telemetry/EKG's were reviewed. Justicifation of Admission Dx: Justifications for Admission: Justification of Admission Dx: Yes Sepsis: Hemodynamic Instability JARAD PACKER MD Sep 09, 2019 09:09
[2019-09-09] MEDS: LIDOCAINE (700MG/PATCH) PATCH. TP SCH (09:46)
[2019-09-09] MEDS: NYSTATIN TOPICAL POWDER 15GM BOTTLE. TP SCH ×2 (09:46→21:20)
[2019-09-09] MEDS ORDERED: 0.9 % SODIUM CHLORIDE 10 ML DISP.SYRIN. IV PRN ×2 (10:00)
[2019-09-09] MEDS ORDERED: ALBUMIN HUMAN 25% 200 ML IV PRN (10:00)
[2019-09-09] MEDS ORDERED: DIALYSIS PATIENT. MC PRN ×2 (10:00)
[2019-09-09] MEDS ORDERED: IV NORMAL SALINE 1000ML BAG 1,000 ML IV PRN ×2 (10:00)
--- NOTE | 2019-09-09 10:08 | PDOC ---
PROGRESS NOTES Chief Complaint Chief Complaint Acute encephalopathy, etiology undetermined which may be central etiology versus uremia (metabolic) Suspected UTI Hypokalemia Acute renal failure, vasomotor etiology most likely High anion gap metabolic acidosis History of diabetes mellitus type 2 Essential hypertension History of CVA Plan results of CT of the head reviewed please see below Renal ultrasound reviewed normal findings. Resume home medications will need to be started on dialysis as per websphere consultant. recommendations greatly appreciated. Reassess in the a.m. Further recommendations based on the clinical course DVT prophylaxis with SCDs CT head: CT of the head without contrast HISTORY: Encephalopathy Comparison study: CT of the head without contrast July 30, 2019 Discussion: CT scan of the brain was done without contrast. There is no intracranial hemorrhage. Ventricles are unchanged in size. Similar-appearing right parasagittal frontal and parietal lobe encephalomalacia. No evidence of subacute territorial infarct is identified. No evidence of new chronic infarct is seen.. There is no shift of the midline. No acute midline shift is identified. No acute osseous changes are seen. IMPRESSION: Stable exam without evidence of acute intracranial abnormality History of Present Illness History of Present Illness 09/08: No acute events reported overnight, case discussed with nursing staff patient in no acute distress no complaints during my visit, patient still non verbal results of her CT of the head reviewed and found negative, labs noted Vitals Vitals Vital Signs Date Time Temp Pulse Resp B/P (MAP) Pulse Ox O2 Delivery O2 Flow Rate FiO2 09/09/19 07:00 98.3 74 20 149/78 (101) 97 Room Air 98.3 Physical Exam Physical Exam GEN.: No apparent distress. Alert difficult to assess if she is oriented but responds to her name HEENT: Head is normocephalic, atraumatic NECK: Supple. LUNGS: Clear to auscultation. HEART: RRR, S1, S2 present. Peripheral pulses intact ABDOMEN: Soft, nontender. Positive bowel sounds. EXTREMITIES: Without any cyanosis. NEUROLOGIC: Cranial nerves II to XII seem to be grossly intact patient is moving all extremities PSYCHIATRIC: Unable to evaluate SKIN: No ulcerations General: Alert Lungs: Clear Labs LABS Laboratory Tests Test 09/08/19 10:00 09/08/19 11:23 09/08/19 13:25 09/08/19 16:25 Urine Random Creatinine 122.3 mg/dL (Not Establ.) Glucose (Fingerstick) 78 mg/dL (70-99) 82 mg/dL (70-99) Sodium Level 140 mmol/L (136-145) Potassium Level 3.2 mmol/L (3.5-5.1) Chloride Level 106 mmol/L (98-107) Carbon Dioxide Level 10 mmol/L (21-32) Anion Gap 24 (6-14) Blood Urea Nitrogen 49 mg/dL (7-20) Creatinine 8.5 mg/dL (0.6-1.0) Estimated GFR (Cockcroft-Gault) 5.1 Glucose Level 89 mg/dL (70-99) Calcium Level 6.0 mg/dL (8.5-10.1) Phosphorus Level 7.6 mg/dL (2.6-4.7) Creatine Kinase 352 U/L (26-192) Albumin 3.1 g/dL (3.4-5.0) Test 09/08/19 20:07 09/09/19 03:30 09/09/19 07:21 Glucose (Fingerstick) 113 mg/dL (70-99) 187 mg/dL (70-99) White Blood Count 17.3 x10^3/uL (4.0-11.0) Red Blood Count 3.90 x10^6/uL (3.50-5.40) Hemoglobin 11.4 g/dL (12.0-15.5) Hematocrit 35.1 % (36.0-47.0) Mean Corpuscular Volume 90 fL (79-100) Mean Corpuscular Hemoglobin 29 pg (25-35) Mean Corpuscular Hemoglobin Concent 32 g/dL (31-37) Red Cell Distribution Width 15.1 % (11.5-14.5) Platelet Count 284 x10^3/uL (140-400) Neutrophils (%) (Auto) 84 % (31-73) Lymphocytes (%) (Auto) 8 % (24-48) Monocytes (%) (Auto) 7 % (0-9) Eosinophils (%) (Auto) 0 % (0-3) Basophils (%) (Auto) 1 % (0-3) Neutrophils # (Auto) 14.4 x10^3/uL (1.8-7.7) Lymphocytes # (Auto) 1.4 x10^3/uL (1.0-4.8) Monocytes # (Auto) 1.3 x10^3/uL (0.0-1.1) Eosinophils # (Auto) 0.0 x10^3/uL (0.0-0.7) Basophils # (Auto) 0.1 x10^3/uL (0.0-0.2) Segmented Neutrophils % 96 % (35-66) Lymphocytes % 3 % (24-48) Monocytes % 1 % (0-10) Platelet Estimate Adequate (ADEQUATE) Sodium Level 139 mmol/L (136-145) Potassium Level 3.0 mmol/L (3.5-5.1) Chloride Level 102 mmol/L (98-107) Carbon Dioxide Level 11 mmol/L (21-32) Anion Gap 26 (6-14) Blood Urea Nitrogen 50 mg/dL (7-20) Creatinine 9.1 mg/dL (0.6-1.0) Estimated GFR (Cockcroft-Gault) 4.7 Glucose Level 147 mg/dL (70-99) Calcium Level 6.4 mg/dL (8.5-10.1) Phosphorus Level 7.0 mg/dL (2.6-4.7) Albumin 3.1 g/dL (3.4-5.0) Assessment and Plan Assessmemt and Plan Problems Medical Problems: (1) Acute kidney failure Status: Acute (2) Hypotension Status: Acute (3) Severe dehydration Status: Acute (4) UTI (urinary tract infection) Status: Acute Comment Review of Relevant I have reviewed the following items dunia (where applicable) has been applied. Labs Laboratory Tests Test 09/07/19 23:59 09/08/19 00:01 09/08/19 00:32 09/08/19 02:30 White Blood Count 12.3 x10^3/uL (4.0-11.0) Red Blood Count 3.99 x10^6/uL (3.50-5.40) Hemoglobin 11.8 g/dL (12.0-15.5) Hematocrit 35.5 % (36.0-47.0) Mean Corpuscular Volume 89 fL (79-100) Mean Corpuscular Hemoglobin 30 pg (25-35) Mean Corpuscular Hemoglobin Concent 33 g/dL (31-37) Red Cell Distribution Width 14.8 % (11.5-14.5) Platelet Count 322 x10^3/uL (140-400) Neutrophils (%) (Auto) 67 % (31-73) Lymphocytes (%) (Auto) 25 % (24-48) Monocytes (%) (Auto) 7 % (0-9) Eosinophils (%) (Auto) 1 % (0-3) Basophils (%) (Auto) 1 % (0-3) Neutrophils # (Auto) 8.2 x10^3/uL (1.8-7.7) Lymphocytes # (Auto) 3.1 x10^3/uL (1.0-4.8) Monocytes # (Auto) 0.8 x10^3/uL (0.0-1.1) Eosinophils # (Auto) 0.1 x10^3/uL (0.0-0.7) Basophils # (Auto) 0.1 x10^3/uL (0.0-0.2) Sodium Level 139 mmol/L (136-145) Potassium Level 3.4 mmol/L (3.5-5.1) Chloride Level 103 mmol/L (98-107) Carbon Dioxide Level 11 mmol/L (21-32) Anion Gap 25 (6-14) Blood Urea Nitrogen 51 mg/dL (7-20) Creatinine 8.3 mg/dL (0.6-1.0) Estimated GFR (Cockcroft-Gault) 5.2 BUN/Creatinine Ratio 6 (6-20) Glucose Level 93 mg/dL (70-99) Calcium Level 6.4 mg/dL (8.5-10.1) Magnesium Level 0.7 mg/dL (1.8-2.4) Total Bilirubin 0.2 mg/dL (0.2-1.0) Aspartate Amino Transf (AST/SGOT) 13 U/L (15-37) Alanine Aminotransferase (ALT/SGPT) 14 U/L (14-59) Alkaline Phosphatase 97 U/L (46-116) Troponin I Quantitative < 0.017 ng/mL (0.000-0.055) Total Protein 7.0 g/dL (6.4-8.2) Albumin 3.2 g/dL (3.4-5.0) Albumin/Globulin Ratio 0.8 (1.0-1.7) Phosphorus Level 8.1 mg/dL (2.6-4.7) Urine Collection Type U cath Urine Color Yellow Urine Clarity Turbid Urine pH 6.0 (<5.0-8.0) Urine Specific [place] 1.025 (1.000-1.030) Urine Protein >=300 mg/dL (NEG-TRACE) Urine Glucose (UA) Negative mg/dL (NEG) Urine Ketones (Stick) Trace mg/dL (NEG) Urine Blood Small (NEG) Urine Nitrite Negative (NEG) Urine Bilirubin Negative (NEG) Urine Urobilinogen Dipstick 0.2 mg/dL (0.2 mg/dL) Urine Leukocyte Esterase Large (NEG) Urine RBC 1-2 /HPF (0-2) Urine WBC Tntc /HPF (0-4) Urine Squamous Epithelial Cells Few /LPF Urine Transitional Epithelial Cells Occ /LPF Urine Bacteria Moderate /HPF (0-FEW) Urine Mucus Slight /LPF Lactic Acid Level 1.8 mmol/L (0.4-2.0) Test 09/08/19 06:35 09/08/19 07:07 09/08/19 10:00 09/08/19 11:23 O2 Saturation 96 % (92-99) Arterial Blood pH 7.26 (7.35-7.45) Arterial Blood pCO2 at Patient Temp 24 mmHg (35-46) Arterial Blood pO2 at Patient Temp 94 mmHg (75-108) Arterial Blood HCO3 10 mmol/L (21-28) Arterial Blood Base Excess -15 mmol/L (-3-3) FiO2 21 Glucose (Fingerstick) 85 mg/dL (70-99) 78 mg/dL (70-99) Urine Random Creatinine 122.3 mg/dL (Not Establ.) Test 09/08/19 13:25 09/08/19 16:25 09/08/19 20:07 09/09/19 03:30 Sodium Level 140 mmol/L (136-145) 139 mmol/L (136-145) Potassium Level 3.2 mmol/L (3.5-5.1) 3.0 mmol/L (3.5-5.1) Chloride Level 106 mmol/L (98-107) 102 mmol/L (98-107) Carbon Dioxide Level 10 mmol/L (21-32) 11 mmol/L (21-32) Anion Gap 24 (6-14) 26 (6-14) Blood Urea Nitrogen 49 mg/dL (7-20) 50 mg/dL (7-20) Creatinine 8.5 mg/dL (0.6-1.0) 9.1 mg/dL (0.6-1.0) Estimated GFR (Cockcroft-Gault) 5.1 4.7 Glucose Level 89 mg/dL (70-99) 147 mg/dL (70-99) Calcium Level 6.0 mg/dL (8.5-10.1) 6.4 mg/dL (8.5-10.1) Phosphorus Level 7.6 mg/dL (2.6-4.7) 7.0 mg/dL (2.6-4.7) Creatine Kinase 352 U/L (26-192) Albumin 3.1 g/dL (3.4-5.0) 3.1 g/dL (3.4-5.0) Glucose (Fingerstick) 82 mg/dL (70-99) 113 mg/dL (70-99) White Blood Count 17.3 x10^3/uL (4.0-11.0) Red Blood Count 3.90 x10^6/uL (3.50-5.40) Hemoglobin 11.4 g/dL (12.0-15.5) Hematocrit 35.1 % (36.0-47.0) Mean Corpuscular Volume 90 fL (79-100) Mean Corpuscular Hemoglobin 29 pg (25-35) Mean Corpuscular Hemoglobin Concent 32 g/dL (31-37) Red Cell Distribution Width 15.1 % (11.5-14.5) Platelet Count 284 x10^3/uL (140-400) Neutrophils (%) (Auto) 84 % (31-73) Lymphocytes (%) (Auto) 8 % (24-48) Monocytes (%) (Auto) 7 % (0-9) Eosinophils (%) (Auto) 0 % (0-3) Basophils (%) (Auto) 1 % (0-3) Neutrophils # (Auto) 14.4 x10^3/uL (1.8-7.7) Lymphocytes # (Auto) 1.4 x10^3/uL (1.0-4.8) Monocytes # (Auto) 1.3 x10^3/uL (0.0-1.1) Eosinophils # (Auto) 0.0 x10^3/uL (0.0-0.7) Basophils # (Auto) 0.1 x10^3/uL (0.0-0.2) Segmented Neutrophils % 96 % (35-66) Lymphocytes % 3 % (24-48) Monocytes % 1 % (0-10) Platelet Estimate Adequate (ADEQUATE) Test 09/09/19 07:21 Glucose (Fingerstick) 187 mg/dL (70-99) Laboratory Tests Test 09/08/19 10:00 09/08/19 11:23 09/08/19 13:25 09/08/19 16:25 Urine Random Creatinine 122.3 mg/dL (Not Establ.) Glucose (Fingerstick) 78 mg/dL (70-99) 82 mg/dL (70-99) Sodium Level 140 mmol/L (136-145) Potassium Level 3.2 mmol/L (3.5-5.1) Chloride Level 106 mmol/L (98-107) Carbon Dioxide Level 10 mmol/L (21-32) Anion Gap 24 (6-14) Blood Urea Nitrogen 49 mg/dL (7-20) Creatinine 8.5 mg/dL (0.6-1.0) Estimated GFR (Cockcroft-Gault) 5.1 Glucose Level 89 mg/dL (70-99) Calcium Level 6.0 mg/dL (8.5-10.1) Phosphorus Level 7.6 mg/dL (2.6-4.7) Creatine Kinase 352 U/L (26-192) Albumin 3.1 g/dL (3.4-5.0) Test 09/08/19 20:07 09/09/19 03:30 09/09/19 07:21 Glucose (Fingerstick) 113 mg/dL (70-99) 187 mg/dL (70-99) White Blood Count 17.3 x10^3/uL (4.0-11.0) Red Blood Count 3.90 x10^6/uL (3.50-5.40) Hemoglobin 11.4 g/dL (12.0-15.5) Hematocrit 35.1 % (36.0-47.0) Mean Corpuscular Volume 90 fL (79-100) Mean Corpuscular Hemoglobin 29 pg (25-35) Mean Corpuscular Hemoglobin Concent 32 g/dL (31-37) Red Cell Distribution Width 15.1 % (11.5-14.5) Platelet Count 284 x10^3/uL (140-400) Neutrophils (%) (Auto) 84 % (31-73) Lymphocytes (%) (Auto) 8 % (24-48) Monocytes (%) (Auto) 7 % (0-9) Eosinophils (%) (Auto) 0 % (0-3) Basophils (%) (Auto) 1 % (0-3) Neutrophils # (Auto) 14.4 x10^3/uL (1.8-7.7) Lymphocytes # (Auto) 1.4 x10^3/uL (1.0-4.8) Monocytes # (Auto) 1.3 x10^3/uL (0.0-1.1) Eosinophils # (Auto) 0.0 x10^3/uL (0.0-0.7) Basophils # (Auto) 0.1 x10^3/uL (0.0-0.2) Segmented Neutrophils % 96 % (35-66) Lymphocytes % 3 % (24-48) Monocytes % 1 % (0-10) Platelet Estimate Adequate (ADEQUATE) Sodium Level 139 mmol/L (136-145) Potassium Level 3.0 mmol/L (3.5-5.1) Chloride Level 102 mmol/L (98-107) Carbon Dioxide Level 11 mmol/L (21-32) Anion Gap 26 (6-14) Blood Urea Nitrogen 50 mg/dL (7-20) Creatinine 9.1 mg/dL (0.6-1.0) Estimated GFR (Cockcroft-Gault) 4.7 Glucose Level 147 mg/dL (70-99) Calcium Level 6.4 mg/dL (8.5-10.1) Phosphorus Level 7.0 mg/dL (2.6-4.7) Albumin 3.1 g/dL (3.4-5.0) Medications Current Medications Sodium Chloride 1,000 ml @ 1,000 mls/hr Q1H IV Last administered on 09/07/19at 00:40; Start 09/07/19 at 23:30; Stop 09/08/19 at 00:29; Status DC Ceftriaxone Sodium (Rocephin) 1 gm 1X ONCE IVP Last administered on 09/08/19at 02:50; Start 09/08/19 at 02:45; Stop 09/08/19 at 02:46; Status DC Magnesium Sulfate 50 ml @ 25 mls/hr 1X ONCE IV Last administered on 09/08/19at 02:51; Start 09/08/19 at 02:45; Stop 09/08/19 at 04:44; Status DC Ondansetron HCl (Zofran) 4 mg PRN Q8HRS PRN IV NAUSEA/VOMITING; Start 09/08/19 at 02:30; Stop 09/09/19 at 02:29; Status DC Sodium Chloride 1,000 ml @ 150 mls/hr Q6H40M IV Last administered on 09/08/19at 08:42; Start 09/08/19 at 02:02; Stop 09/09/19 at 02:01; Status DC Labetalol HCl (Normodyne Iv Push) 10 mg 1X ONCE IVP ; Start 09/08/19 at 03:00; Stop 09/08/19 at 03:02; Status DC Sodium Chloride 1,000 ml @ 1,000 mls/hr 1X ONCE IV Last administered on 09/08/19at 10:45; Start 09/08/19 at 10:45; Stop 09/08/19 at 11:44; Status DC Sodium Bicarbonate 100 meq/Dextrose 1,100 ml @ 100 mls/hr Q11H IV Last administered on 09/09/19at 03:43; Start 09/08/19 at 15:30 Calcium Chloride 2000 mg/Sodium Chloride 120 ml @ 240 mls/hr 1X ONCE IV ; Start 09/08/19 at 15:00; Stop 09/08/19 at 15:39; Status DC Calcium Gluconate 2000 mg/Sodium Chloride 120 ml @ 220 mls/hr 1X ONCE IV Last administered on 09/08/19at 15:58; Start 09/08/19 at 16:00; Stop 09/08/19 at 16:32; Status DC Nystatin (Nystop) 1 jennifer BID TP Last administered on 09/08/19at 20:31; Start 09/08/19 at 21:00 Ceftriaxone Sodium (Rocephin) 1 gm Q24H IVP Last administered on 09/09/19at 06:31; Start 09/09/19 at 06:00 Amlodipine Besylate (Norvasc) 5 mg DAILY PO ; Start 09/09/19 at 09:00 Aspirin (Aspirin Chewable) 81 mg DAILY PO ; Start 09/09/19 at 09:00 Atorvastatin Calcium (Lipitor) 40 mg QHS PO ; Start 09/09/19 at 21:00 Hydralazine HCl (Apresoline) 25 mg Q6HRS PO ; Start 09/09/19 at 12:00 Lidocaine (Lidoderm) 1 patch DAILY TP ; Start 09/09/19 at 09:00 Pantoprazole Sodium (Protonix) 40 mg DAILYAC PO ; Start 09/09/19 at 08:00 Tizanidine HCl (Zanaflex) 8 mg QID PO ; Start 09/09/19 at 09:00 Carvedilol (Coreg) 25 mg BIDWMEALS PO ; Start 09/09/19 at 08:00 Citalopram Hydrobromide (CeleXA) 20 mg DAILY PO ; Start 09/09/19 at 09:00 Gabapentin (Neurontin) 800 mg DAILY PO ; Start 09/09/19 at 09:00 Hydrocortisone (Cortaid) 1 jennifer PRN Q6HRS PRN TP RASH; Start 09/09/19 at 08:00 Non-Formulary Medication (Melatonin ) 1 tab QHS PO ; Start 09/09/19 at 21:00; Status UNV Miscellaneous (Lidoderm Patch Removal) 1 ea QHS MC ; Start 09/09/19 at 21:00 Active Scripts Active Hydralazine Hcl 25 Mg Tablet 25 Mg PO Q6HRS 60 Days Atorvastatin Calcium 40 Mg Tablet 40 Mg PO QHS Reported Zofran (Ondansetron Hcl) 4 Mg Tablet 1 Tab PO PRN Q6HRS PRN Topiramate 25 Mg Tablet 3 Tab PO BID 30 Days Tizanidine Hcl 4 Mg Tablet 2 Tab PO QID Gabapentin 800 Mg Tablet 800 Mg PO TID Melatonin 1 Mg Tablet 1 Tab PO QHS 30 Days Loperamide (Loperamide Hcl) 2 Mg Tablet 2 Mg PO PRN Q4HRS Lidocaine PATCH (Lidocaine) 1 Each Adh..patch 1 Each TP DAILY REMOVE AFTER 12 HOURS Hydrocortisone 453.6 Gm Cream..g. 1 Jennifer TP PRN Q6HRS D3-50 (Cholecalciferol (Vitamin D3)) 50,000 Unit Capsule 1,000 Unit PO DAILY Carvedilol 25 Mg Tablet 25 Mg PO BIDWMEALS Aspirin 81 Mg Tab.chew 1 Tab PO DAILY Amlodipine Besylate 5 Mg Tablet 5 Mg PO DAILY Acetaminophen 500 Mg Tablet 1,000 Mg PO PRN Q4HRS PRN Escitalopram Oxalate 10 Mg Tablet 10 Mg PO DAILY Metformin Hcl Er (Metformin Hcl) 750 Mg Tab.er.24h 1 Tab PO BID 30 Days Protonix (Pantoprazole Sodium) 40 Mg Tablet.dr 40 Mg PO DAILYAC Zestril (Lisinopril) 40 Mg Tablet 40 Mg PO DAILY Vitals/I & O Vital Sign - Last 24 Hours 09/08/19 09/08/19 09/08/19 09/08/19 10:56 15:00 19:37 20:00 Temp 98.5 99.3 99.7 98.5 99.3 99.7 Pulse 69 71 76 Resp 16 14 16 B/P (MAP) 92/42 (59) 104/53 (70) 98/59 (72) Pulse Ox 95 95 95 O2 Delivery Room Air Room Air Room Air Room Air 09/08/19 09/09/19 09/09/19 23:27 03:40 07:00 Temp 99.1 98.6 98.3 99.1 98.6 98.3 Pulse 74 75 74 Resp 16 20 20 B/P (MAP) 136/62 (86) 151/71 (97) 149/78 (101) Pulse Ox 93 98 97 O2 Delivery Room Air Room Air Room Air Intake and Output 09/08/19 09/08/19 09/09/19 15:00 23:00 07:00 Intake Total 0 ml Output Total 75 ml Balance -75 ml JAYNE MILLAN MD Sep 09, 2019 10:08
[2019-09-09 11:00] VITALS: BP 156/83
[2019-09-09] MEDS: hydrALAZINE 25 MG TABLET PO SCH ×2 (12:00→18:00)
[2019-09-09] MEDS ORDERED: LIDOCAINE WITH 8.4% SOD BICARB 3 ML DISP.SYRIN. ONE (12:26)
[2019-09-09] MEDS ORDERED: LIDOCAINE WITH 8.4% SOD BICARB 3 ML DISP.SYRIN. INJ ONE (13:15)
--- NOTE | 2019-09-09 13:33 | RAD ---
Procedure: Left internal jugular temporary hemodialysis catheter placement, fluoroscopic and ultrasound guidance. 09/09/2019 11:28 AM Clinical Indication: Temporary dialysis catheter for hemodialysis Sterility: All elements of maximal sterile barrier technique including the use of a cap, mask, sterile gown, sterile gloves, large sterile sheet, appropriate hand hygiene, and 2% chlorhexidine for cutaneous antisepsis (or acceptable alternative antiseptic per current guidelines) were followed for this procedure. Consent: The procedure was explained in its entirety to the patient or the patients designated mortician supplies sales representative by a member of the treatment team, including a discussion of the risks, benefits and commonly accepted alternatives to the procedure, as well as the expected consequences of no therapy whatsoever. Discussion of the risks included, but was not limited to, those that are most frequent and those that are rare but possibly severe or life-threatening, as well as the possibility of unforeseen complications. Technique and Findings: Following informed consent, a timeout procedure was performed. The patient was prepped and draped in the usual sterile fashion. Ultrasound interrogation of the left neck demonstrated a patent left internal jugular vein. A 21-gauge micropuncture was then used to gain access to this vein under ultrasound guidance. A hard copy ultrasound image was recorded. The needle was exchanged over a wire for a 4 Hungarian sheath which was used to guide an guidewire into the IVC. Over this wire following dilatation a 24 cm temporary dialysis catheter was advanced over the wire such that its tip resides within the mid right atrium. Manual flow rates were assessed and found to be within normal limits. The catheter was then flushed, capped, and sutured to the skin. No immediate complications were identified. Fluoroscopy time:1 minute Dose area product: 1 Gycm2 Impression: Left internal jugular temporary hemodialysis catheter placement as described
[2019-09-09 19:53] VITALS: BP 162/84
[2019-09-09] MEDS: PATCH REMOVAL. MC SCH (21:00)
[2019-09-09] MEDS ORDERED: NON FORMULARY ITEM (Melatonin 1 TAB) PO SCH (21:00)
[2019-09-09] MEDS: ATORVASTATIN CALCIUM 40 MG TABLET. PO SCH (21:00)
[2019-09-09 23:08] LABS: UR POTASSIUM 5.3 mmol/L (Not Estab.)
[2019-09-09] MEDS ORDERED: ACETAMINOPHEN 325 MG SUPP.RECT. PR PRN (23:15)
[2019-09-09 23:18] VITALS: BP 165/73
[2019-09-10] MEDS: PIPERACILLIN/TAZOBACTAM 2.25 GM in IV NORMAL SALINE 50ML 50 ML IV SCH ×4 (00:12→21:30)
[2019-09-10] MEDS: SODIUM BICARBONATE VIAL 100 MEQ in IV DEXTROSE 5% 1,000 ML IV SCH ×2 (03:17→12:08)
[2019-09-10 03:52] VITALS: BP 128/63
[2019-09-10] MEDS: hydrALAZINE 25 MG TABLET PO SCH ×5 (05:42→23:35)
[2019-09-10 05:54] LABS: ALBUMIN 2.7 g/dL (3.4-5.0); CALCIUM 7.7 mg/dL (8.5-10.1); CREATININE 5.7 mg/dL (0.6-1.0); PHOSPHORUS 3.5 mg/dL (2.6-4.7)
[2019-09-10 06:26] LABS: POTASSIUM 2.6 mmol/L (3.5-5.1)
[2019-09-10] MEDS ORDERED: IV NORMAL SALINE 1000ML BAG 1,000 ML IV PRN ×2 (07:26)
[2019-09-10] MEDS ORDERED: DIALYSIS PATIENT. MC PRN (07:30)
[2019-09-10] MEDS: PANTOPRAZOLE 40 MG TABLET.DR. PO SCH (07:30)
[2019-09-10] MEDS ORDERED: ALBUMIN HUMAN 25% 200 ML IV PRN (07:30)
[2019-09-10] MEDS ORDERED: 0.9 % SODIUM CHLORIDE 10 ML DISP.SYRIN. IV PRN ×2 (07:30)
[2019-09-10 07:39] VITALS: BP 152/84
[2019-09-10] MEDS ORDERED: POTASSIUM CHLORIDE 20MEQ 100 ML IV SCH (08:00)
[2019-09-10] MEDS: CARVEDILOL 12.5 MG TABLET. PO SCH ×2 (08:00→17:06)
[2019-09-10] MEDS: NYSTATIN TOPICAL POWDER 15GM BOTTLE. TP SCH ×2 (09:00→21:27)
[2019-09-10] MEDS: CITALOPRAM 20 MG TABLET. PO SCH (09:00)
[2019-09-10] MEDS: GABAPENTIN 400 MG CAPSULE. PO SCH (09:00)
[2019-09-10] MEDS: LIDOCAINE (700MG/PATCH) PATCH. TP SCH (09:00)
[2019-09-10] MEDS: tiZANidine 4 MG TABLET. PO SCH ×4 (09:00→21:27)
[2019-09-10] MEDS: ASPIRIN CHEWABLE 81 MG TABLET. PO SCH (09:00)
[2019-09-10] MEDS: amLODIPine BESYLATE 5 MG TABLET PO SCH (09:00)
--- NOTE | 2019-09-10 09:11 | PDOC ---
SUBJECTIVE ROS Opens eyes to voice , tolerating HD well OBJECTIVE Vital Signs Vital Signs Date Time Temp Pulse Resp B/P (MAP) Pulse Ox O2 Delivery O2 Flow Rate FiO2 09/10/19 07:49 Room Air 09/10/19 07:39 98.6 82 20 152/84 (106) 94 98.6 I & 0 Intake and Output 09/10/19 06:59 Intake Total 0 ml Output Total 500 ml Balance -500 ml Intake Oral 0 ml Output Urine Total 500 ml # Voids 1 # Bowel Movements 2 PHYSICAL EXAM Physical Exam General: NAD HEEN-OM dry Neck supple CV: S1S2 Lungs: Clear, Non labored Abdomen: Soft, NT Extremities: No LE edema Skin: No rashes Trammell +, No CVA or SP tenderness Neuro- Hx of CVA DIAGNOSIS/ASSESSMENT Assessment & Plan LESLIE - ATN/2/2 Dehydration/UTI/ severe Hypotension Baseline Cr was normal recently lisinopril held ,UOP marginal Renal US unremarkable, Initiated on HD 09/08 Seen on HD ( 2nd Treatment) , tolerating well, continue as ordered , Rubén Mckeon Supportive care , avoid Nephrotoxins , Daily BMP , strict I/O (intake recor ded as zero/UOP -accuracy doubtful )- important to monitor for renal recovery Metabolic acidosis- No response to IV Bicarb, initiated on HD Decrease IVF rate , dw RN HypoKalemia- Adjust K in Dialysate HypoCalcemia - No Improvement with IV Improved after 1 st treatment, Dialysate Ca dw Mike HyperPhos- improved Post HD UTI- Abx per primary Hx of Seizures- hospitalized in July Acute superior posterior right frontal lobe infarct on the old stroke in July Hx of Hypertensive emergency in July 2019- BP 231/105 mmHg. Currently sever Hypotension at Rehab and Low BP at presentation as well , Improving Metabolic encephalopathy. DM. 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 Morbid obesity. COMMENT/RELEVANT DATA Meds Current Medications Medications (Trade) Dose Ordered Sig/Jace Start Time Stop Time Status Last Admin Dose Admin Acetaminophen (Tylenol Supp) 325 mg PRN Q6HRS PRN 09/09/19 23:15 09/10/19 00:12 325 MG Albumin Human 200 ml @ 200 mls/hr 1X PRN PRN 09/10/19 07:30 09/10/19 13:29 Amlodipine Besylate (Norvasc) 5 mg DAILY 09/09/19 09:00 Aspirin (Aspirin Chewable) 81 mg DAILY 09/09/19 09:00 Atorvastatin Calcium (Lipitor) 40 mg QHS 09/09/19 21:00 Calcium Chloride 2000 mg/Sodium Chloride 120 ml @ 240 mls/hr 1X ONCE 09/08/19 15:00 09/08/19 15:39 DC Calcium Gluconate 2000 mg/Sodium Chloride 120 ml @ 220 mls/hr 1X ONCE 09/08/19 16:00 09/08/19 16:32 DC 09/08/19 15:58 220 MLS/HR Carvedilol (Coreg) 25 mg BIDWMEALS 09/09/19 08:00 Ceftriaxone Sodium (Rocephin) 1 gm Q24H 09/09/19 09:15 UNV Citalopram Hydrobromide (CeleXA) 20 mg DAILY 09/09/19 09:00 Gabapentin (Neurontin) 800 mg DAILY 09/09/19 09:00 Hydralazine HCl (Apresoline) 25 mg Q6HRS 09/09/19 12:00 Hydrocortisone (Cortaid) 1 gina PRN Q6HRS PRN 09/09/19 08:00 Info (PHARMACY MONITORING -- do not chart) 1 each PRN DAILY PRN 09/10/19 07:30 Labetalol HCl (Normodyne Iv Push) 10 mg 1X ONCE 09/08/19 03:00 09/08/19 03:02 DC Lidocaine (Lidoderm) 1 patch DAILY 09/09/19 09:00 09/09/19 09:46 1 PATCH Lidocaine HCl (Buffered Lidocaine 1%) 4 ml 1X ONCE 09/09/19 13:15 09/09/19 13:16 DC 09/09/19 13:07 4 ML Magnesium Sulfate 50 ml @ 25 mls/hr 1X ONCE 09/08/19 02:45 09/08/19 04:44 DC 09/08/19 02:51 25 MLS/HR Miscellaneous (Lidoderm Patch Removal) 1 ea QHS 09/09/19 21:00 09/09/19 21:00 1 EA Non-Formulary Medication (Melatonin ) 1 tab QHS 09/09/19 21:00 UNV Nystatin (Nystop) 1 gina BID 6/2/20 21:00 09/09/19 21:20 1 GINA Ondansetron HCl (Zofran) 4 mg PRN Q8HRS PRN 09/08/19 02:30 09/09/19 02:29 DC Pantoprazole Sodium (Protonix) 40 mg DAILYAC 09/09/19 08:00 Piperacillin Sod/ Tazobactam Sod 2.25 gm/Sodium Chloride 50 ml @ 100 mls/hr Q8HRS 09/10/19 00:00 09/10/19 05:46 100 MLS/HR Potassium Chloride/Water 100 ml @ 50 mls/hr Q2HR 09/10/19 08:00 09/10/19 08:45 DC Sodium Bicarbonate 100 meq/Dextrose 1,100 ml @ 100 mls/hr Q11H 09/08/19 15:30 09/10/19 03:17 100 MLS/HR Sodium Chloride 1,000 ml @ 400 mls/hr Q2H30M PRN 09/10/19 07:26 09/10/19 19:25 Sodium Chloride (Normal Saline Flush) 10 ml 1X PRN PRN 09/10/19 07:30 09/11/19 07:29 Tizanidine HCl (Zanaflex) 8 mg QID 09/09/19 09:00 Lab Laboratory Tests Test 09/09/19 11:42 09/09/19 19:32 09/10/19 03:13 09/10/19 07:24 Glucose (Fingerstick) 164 mg/dL (70-99) 136 mg/dL (70-99) 180 mg/dL (70-99) Sodium Level 140 mmol/L (136-145) Potassium Level 2.6 mmol/L (3.5-5.1) Chloride Level 101 mmol/L (98-107) Carbon Dioxide Level 21 mmol/L (21-32) Anion Gap 18 (6-14) Blood Urea Nitrogen 31 mg/dL (7-20) Creatinine 5.7 mg/dL (0.6-1.0) Estimated GFR (Cockcroft-Gault) 8.0 Glucose Level 164 mg/dL (70-99) Calcium Level 7.7 mg/dL (8.5-10.1) Phosphorus Level 3.5 mg/dL (2.6-4.7) Albumin 2.7 g/dL (3.4-5.0) Results All relevant outside records, renal labs, imaging studies, telemetry/EKG's were reviewed. Justicifation of Admission Dx: Justifications for Admission: Justification of Admission Dx: Yes Sepsis: Hemodynamic Instability JARAD PACKER MD Sep 10, 2019 09:11
--- NOTE | 2019-09-10 12:40 | NUR ---
This RN nonadministered bag of sodium bicarb, previous bag still running with rate decreased to 75 mL/hr. Refer to [facility] for details.
--- NOTE | 2019-09-10 13:27 | PDOC ---
PROGRESS NOTES Chief Complaint Chief Complaint Acute encephalopathy, etiology undetermined which may be central etiology versus uremia (metabolic) Suspected UTI Hypokalemia Acute renal failure, vasomotor etiology most likely High anion gap metabolic acidosis History of diabetes mellitus type 2 Essential hypertension History of CVA Plan results of CT of the head reviewed please see below Renal ultrasound reviewed normal findings. Resume home medications will need to be started on dialysis as per sr technical sales consultant. recommendations greatly appreciated. Reassess in the a.m. Further recommendations based on the clinical course DVT prophylaxis with SCDs CT head: CT of the head without contrast HISTORY: Encephalopathy Comparison study: CT of the head without contrast July 30, 2019 Discussion: CT scan of the brain was done without contrast. There is no intracranial hemorrhage. Ventricles are unchanged in size. Similar-appearing right parasagittal frontal and parietal lobe encephalomalacia. No evidence of subacute territorial infarct is identified. No evidence of new chronic infarct is seen.. There is no shift of the midline. No acute midline shift is identified. No acute osseous changes are seen. IMPRESSION: Stable exam without evidence of acute intracranial abnormality History of Present Illness History of Present Illness 09/08: No acute events reported overnight, case discussed with nursing staff patient in no acute distress no complaints during my visit, patient still non verbal results of her CT of the head reviewed and found negative, labs noted 09/09: Patient continues to be pretty much the same seems to be a little bit more responsive today compared to yesterday she responds to her name no acute events reported overnight tolerating hemodialysis well this may well be metabolic encephalopathy hopefully with correction of her electrolytes she may be coming out of her stupor. Case management requesting COVID testing first and under investigation for placement Vitals Vitals Vital Signs Date Time Temp Pulse Resp B/P (MAP) Pulse Ox O2 Delivery O2 Flow Rate FiO2 09/10/19 07:49 Room Air 09/10/19 07:39 98.6 82 20 152/84 (106) 94 98.6 Physical Exam Physical Exam GEN.: No apparent distress. Alert difficult to assess if she is oriented but responds to her name HEENT: Head is normocephalic, atraumatic NECK: Supple. LUNGS: Clear to auscultation. HEART: RRR, S1, S2 present. Peripheral pulses intact ABDOMEN: Soft, nontender. Positive bowel sounds. EXTREMITIES: Without any cyanosis. NEUROLOGIC: Cranial nerves II to XII seem to be grossly intact patient is moving all extremities PSYCHIATRIC: Unable to evaluate SKIN: No ulcerations General: Alert Lungs: Clear Labs LABS Laboratory Tests Test 09/09/19 13:45 09/09/19 19:32 09/10/19 03:13 09/10/19 07:24 Coronavirus (COVID-19)(PCR) Not detected (NOT DETECT.) Glucose (Fingerstick) 136 mg/dL (70-99) 180 mg/dL (70-99) Sodium Level 140 mmol/L (136-145) Potassium Level 2.6 mmol/L (3.5-5.1) Chloride Level 101 mmol/L (98-107) Carbon Dioxide Level 21 mmol/L (21-32) Anion Gap 18 (6-14) Blood Urea Nitrogen 31 mg/dL (7-20) Creatinine 5.7 mg/dL (0.6-1.0) Estimated GFR (Cockcroft-Gault) 8.0 Glucose Level 164 mg/dL (70-99) Calcium Level 7.7 mg/dL (8.5-10.1) Phosphorus Level 3.5 mg/dL (2.6-4.7) Albumin 2.7 g/dL (3.4-5.0) Assessment and Plan Assessmemt and Plan Problems Medical Problems: (1) Acute kidney failure Status: Acute (2) Hypotension Status: Acute (3) Severe dehydration Status: Acute (4) UTI (urinary tract infection) Status: Acute Comment Review of Relevant I have reviewed the following items dunia (where applicable) has been applied. Labs Laboratory Tests Test 09/08/19 16:18 09/08/19 16:25 09/08/19 20:07 09/09/19 03:30 Urine Sodium 72 mmol/L (Not Estab.) Urine Potassium 5.3 mmol/L (Not Estab.) Urine Chloride 76 mmol/L (Not Estab.) Glucose (Fingerstick) 82 mg/dL (70-99) 113 mg/dL (70-99) White Blood Count 17.3 x10^3/uL (4.0-11.0) Red Blood Count 3.90 x10^6/uL (3.50-5.40) Hemoglobin 11.4 g/dL (12.0-15.5) Hematocrit 35.1 % (36.0-47.0) Mean Corpuscular Volume 90 fL (79-100) Mean Corpuscular Hemoglobin 29 pg (25-35) Mean Corpuscular Hemoglobin Concent 32 g/dL (31-37) Red Cell Distribution Width 15.1 % (11.5-14.5) Platelet Count 284 x10^3/uL (140-400) Neutrophils (%) (Auto) 84 % (31-73) Lymphocytes (%) (Auto) 8 % (24-48) Monocytes (%) (Auto) 7 % (0-9) Eosinophils (%) (Auto) 0 % (0-3) Basophils (%) (Auto) 1 % (0-3) Neutrophils # (Auto) 14.4 x10^3/uL (1.8-7.7) Lymphocytes # (Auto) 1.4 x10^3/uL (1.0-4.8) Monocytes # (Auto) 1.3 x10^3/uL (0.0-1.1) Eosinophils # (Auto) 0.0 x10^3/uL (0.0-0.7) Basophils # (Auto) 0.1 x10^3/uL (0.0-0.2) Segmented Neutrophils % 96 % (35-66) Lymphocytes % 3 % (24-48) Monocytes % 1 % (0-10) Platelet Estimate Adequate (ADEQUATE) Sodium Level 139 mmol/L (136-145) Potassium Level 3.0 mmol/L (3.5-5.1) Chloride Level 102 mmol/L (98-107) Carbon Dioxide Level 11 mmol/L (21-32) Anion Gap 26 (6-14) Blood Urea Nitrogen 50 mg/dL (7-20) Creatinine 9.1 mg/dL (0.6-1.0) Estimated GFR (Cockcroft-Gault) 4.7 Glucose Level 147 mg/dL (70-99) Calcium Level 6.4 mg/dL (8.5-10.1) Phosphorus Level 7.0 mg/dL (2.6-4.7) Albumin 3.1 g/dL (3.4-5.0) Hepatitis B Surface Antibody, Quant 4.4 mIU/mL (Immunity>9.9) Hepatitis B Core Total Antibody Nonreactive (Nonreactive) Test 6/3/20 07:21 09/09/19 11:42 09/09/19 13:45 09/09/19 19:32 Glucose (Fingerstick) 187 mg/dL (70-99) 164 mg/dL (70-99) 136 mg/dL (70-99) Coronavirus (COVID-19)(PCR) Not detected (NOT DETECT.) Test 09/10/19 03:13 09/10/19 07:24 Sodium Level 140 mmol/L (136-145) Potassium Level 2.6 mmol/L (3.5-5.1) Chloride Level 101 mmol/L (98-107) Carbon Dioxide Level 21 mmol/L (21-32) Anion Gap 18 (6-14) Blood Urea Nitrogen 31 mg/dL (7-20) Creatinine 5.7 mg/dL (0.6-1.0) Estimated GFR (Cockcroft-Gault) 8.0 Glucose Level 164 mg/dL (70-99) Calcium Level 7.7 mg/dL (8.5-10.1) Phosphorus Level 3.5 mg/dL (2.6-4.7) Albumin 2.7 g/dL (3.4-5.0) Glucose (Fingerstick) 180 mg/dL (70-99) Laboratory Tests Test 09/09/19 13:45 09/09/19 19:32 09/10/19 03:13 09/10/19 07:24 Coronavirus (COVID-19)(PCR) Not detected (NOT DETECT.) Glucose (Fingerstick) 136 mg/dL (70-99) 180 mg/dL (70-99) Sodium Level 140 mmol/L (136-145) Potassium Level 2.6 mmol/L (3.5-5.1) Chloride Level 101 mmol/L (98-107) Carbon Dioxide Level 21 mmol/L (21-32) Anion Gap 18 (6-14) Blood Urea Nitrogen 31 mg/dL (7-20) Creatinine 5.7 mg/dL (0.6-1.0) Estimated GFR (Cockcroft-Gault) 8.0 Glucose Level 164 mg/dL (70-99) Calcium Level 7.7 mg/dL (8.5-10.1) Phosphorus Level 3.5 mg/dL (2.6-4.7) Albumin 2.7 g/dL (3.4-5.0) Microbiology 09/08/19 Urine Culture - Final, Complete 09/08/19 Antimicrobic Susceptibility - Final, Complete Medications Current Medications Sodium Chloride 1,000 ml @ 1,000 mls/hr Q1H IV Last administered on 09/07/19at 00:40; Start 09/07/19 at 23:30; Stop 09/08/19 at 00:29; Status DC Ceftriaxone Sodium (Rocephin) 1 gm 1X ONCE IVP Last administered on 09/08/19at 02:50; Start 09/08/19 at 02:45; Stop 09/08/19 at 02:46; Status DC Magnesium Sulfate 50 ml @ 25 mls/hr 1X ONCE IV Last administered on 09/08/19at 02:51; Start 09/08/19 at 02:45; Stop 09/08/19 at 04:44; Status DC Ondansetron HCl (Zofran) 4 mg PRN Q8HRS PRN IV NAUSEA/VOMITING; Start 09/08/19 at 02:30; Stop 09/09/19 at 02:29; Status DC Sodium Chloride 1,000 ml @ 150 mls/hr Q6H40M IV Last administered on 09/08/19at 08:42; Start 09/08/19 at 02:02; Stop 09/09/19 at 02:01; Status DC Labetalol HCl (Normodyne Iv Push) 10 mg 1X ONCE IVP ; Start 09/08/19 at 03:00; Stop 09/08/19 at 03:02; Status DC Sodium Chloride 1,000 ml @ 1,000 mls/hr 1X ONCE IV Last administered on 09/08/19at 10:45; Start 09/08/19 at 10:45; Stop 09/08/19 at 11:44; Status DC Sodium Bicarbonate 100 meq/Dextrose 1,100 ml @ 75 mls/hr [id number] IV Last administered on 09/10/19at 03:17; Start 09/08/19 at 15:30 Calcium Chloride 2000 mg/Sodium Chloride 120 ml @ 240 mls/hr 1X ONCE IV ; Start 09/08/19 at 15:00; Stop 09/08/19 at 15:39; Status DC Calcium Gluconate 2000 mg/Sodium Chloride 120 ml @ 220 mls/hr 1X ONCE IV Last administered on 09/08/19at 15:58; Start 09/08/19 at 16:00; Stop 09/08/19 at 16:32; Status DC Nystatin (Nystop) 1 jennifer BID TP Last administered on 09/09/19at 21:20; Start 09/08/19 at 21:00 Ceftriaxone Sodium (Rocephin) 1 gm Q24H IVP Last administered on 09/09/19at 06:31; Start 09/09/19 at 06:00; Stop 09/09/19 at 23:06; Status DC Amlodipine Besylate (Norvasc) 5 mg DAILY PO ; Start 09/09/19 at 09:00 Aspirin (Aspirin Chewable) 81 mg DAILY PO ; Start 09/09/19 at 09:00 Atorvastatin Calcium (Lipitor) 40 mg QHS PO ; Start 09/09/19 at 21:00 Hydralazine HCl (Apresoline) 25 mg Q6HRS PO ; Start 09/09/19 at 12:00 Lidocaine (Lidoderm) 1 patch DAILY TP Last administered on 09/09/19at 09:46; Start 09/09/19 at 09:00 Pantoprazole Sodium (Protonix) 40 mg DAILYAC PO ; Start 09/09/19 at 08:00 Tizanidine HCl (Zanaflex) 8 mg QID PO ; Start 09/09/19 at 09:00 Carvedilol (Coreg) 25 mg BIDWMEALS PO ; Start 09/09/19 at 08:00 Citalopram Hydrobromide (CeleXA) 20 mg DAILY PO ; Start 09/09/19 at 09:00 Gabapentin (Neurontin) 800 mg DAILY PO ; Start 09/09/19 at 09:00 Hydrocortisone (Cortaid) 1 jennifer PRN Q6HRS PRN TP RASH; Start 09/09/19 at 08:00 Non-Formulary Medication (Melatonin ) 1 tab QHS PO ; Start 09/09/19 at 21:00; Status UNV Miscellaneous (Lidoderm Patch Removal) 1 ea QHS MC Last administered on 09/09/19at 21:00; Start 09/09/19 at 21:00 Ceftriaxone Sodium (Rocephin) 1 gm Q24H IVP ; Start 09/09/19 at 09:15; Status UNV Sodium Chloride 1,000 ml @ 1,000 mls/hr Q1H PRN IV hypotension; Start 09/09/19 at 10:00; Stop 09/09/19 at 15:59; Status DC Albumin Human 200 ml @ 200 mls/hr 1X PRN PRN IV Hypotension; Start 09/09/19 at 10:00; Stop 09/09/19 at 15:59; Status DC Sodium Chloride (Normal Saline Flush) 10 ml 1X PRN PRN IV AP catheter pack; Start 09/09/19 at 10:00; Stop 09/10/19 at 09:59; Status DC Sodium Chloride (Normal Saline Flush) 10 ml 1X PRN PRN IV [employer] catheter pack; Start 09/09/19 at 10:00; Stop 09/10/19 at 09:59; Status DC Sodium Chloride 1,000 ml @ 400 mls/hr Q2H30M PRN IV PATENCY; Start 09/09/19 at 10:00; Stop 09/09/19 at 21:59; Status DC Info (PHARMACY MONITORING -- do not chart) 1 each PRN DAILY PRN MC SEE COMMENTS; Start 09/09/19 at 10:00; Stop 09/09/19 at 10:07; Status DC Info (PHARMACY MONITORING -- do not chart) 1 each PRN DAILY PRN MC SEE COMMENTS; Start 09/09/19 at 10:00 Lidocaine HCl (Buffered Lidocaine 1%) 3 ml STK-MED ONCE .ROUTE ; Start 09/09/19 at 12:26; Stop 09/09/19 at 12:27; Status DC Lidocaine HCl (Buffered Lidocaine 1%) 4 ml 1X ONCE INJ Last administered on 09/09/19at 13:07; Start 09/09/19 at 13:15; Stop 09/09/19 at 13:16; Status DC Acetaminophen (Tylenol Supp) 325 mg PRN Q6HRS PRN TX MILD PAIN / TEMP > 100.3'F Last administered on 09/10/19at 00:12; Start 09/09/19 at 23:15 Piperacillin Sod/ Tazobactam Sod 2.25 gm/Sodium Chloride 50 ml @ 100 mls/hr Q8HRS IV Last administered on 09/10/19at 05:46; Start 09/10/19 at 00:00 Sodium Chloride 1,000 ml @ 1,000 mls/hr Q1H PRN IV hypotension; Start 09/10/19 at 07:26; Stop 09/10/19 at 13:25 Albumin Human 200 ml @ 200 mls/hr 1X PRN PRN IV Hypotension; Start 09/10/19 at 07:30; Stop 09/10/19 at 13:29 Sodium Chloride (Normal Saline Flush) 10 ml 1X PRN PRN IV AP catheter pack; Start 09/10/19 at 07:30; Stop 09/11/19 at 07:29 Sodium Chloride (Normal Saline Flush) 10 ml 1X PRN PRN IV [employer] catheter pack; Start 09/10/19 at 07:30; Stop 09/11/19 at 07:29 Sodium Chloride 1,000 ml @ 400 mls/hr Q2H30M PRN IV PATENCY; Start 09/10/19 at 07:26; Stop 09/10/19 at 19:25 Info (PHARMACY MONITORING -- do not chart) 1 each PRN DAILY PRN MC SEE COMMENT S; Start 09/10/19 at 07:30 Potassium Chloride/Water 100 ml @ 50 mls/hr Q2HR IV ; Start 09/10/19 at 08:00; Stop 09/10/19 at 08:45; Status DC Active Scripts Active Hydralazine Hcl 25 Mg Tablet 25 Mg PO Q6HRS 60 Days Atorvastatin Calcium 40 Mg Tablet 40 Mg PO QHS Reported Zofran (Ondansetron Hcl) 4 Mg Tablet 1 Tab PO PRN Q6HRS PRN Topiramate 25 Mg Tablet 3 Tab PO BID 30 Days Tizanidine Hcl 4 Mg Tablet 2 Tab PO QID Gabapentin 800 Mg Tablet 800 Mg PO TID Melatonin 1 Mg Tablet 1 Tab PO QHS 30 Days Loperamide (Loperamide Hcl) 2 Mg Tablet 2 Mg PO PRN Q4HRS Lidocaine PATCH (Lidocaine) 1 Each Adh..patch 1 Each TP DAILY REMOVE AFTER 12 HOURS Hydrocortisone 453.6 Gm Cream..g. 1 Jennifer TP PRN Q6HRS D3-50 (Cholecalciferol (Vitamin D3)) 50,000 Unit Capsule 1,000 Unit PO DAILY Carvedilol 25 Mg Tablet 25 Mg PO BIDWMEALS Aspirin 81 Mg Tab.chew 1 Tab PO DAILY Amlodipine Besylate 5 Mg Tablet 5 Mg PO DAILY Acetaminophen 500 Mg Tablet 1,000 Mg PO PRN Q4HRS PRN Escitalopram Oxalate 10 Mg Tablet 10 Mg PO DAILY Metformin Hcl Er (Metformin Hcl) 750 Mg Tab.er.24h 1 Tab PO BID 30 Days Protonix (Pantoprazole Sodium) 40 Mg Tablet.dr 40 Mg PO DAILYAC Zestril (Lisinopril) 40 Mg Tablet 40 Mg PO DAILY Vitals/I & O Vital Sign - Last 24 Hours 09/09/19 09/09/19 09/09/19 09/10/19 19:53 20:00 23:18 03:52 Temp 100.0 99.5 99.0 100.0 99.5 99.0 Pulse 89 86 81 Resp 20 20 20 B/P (MAP) 162/84 (110) 165/73 (103) 128/63 (84) Pulse Ox 93 95 94 O2 Delivery Room Air Room Air Room Air Room Air 09/10/19 09/10/19 07:39 07:49 Temp 98.6 98.6 Pulse 82 Resp 20 B/P (MAP) 152/84 (106) Pulse Ox 94 O2 Delivery Room Air Room Air Intake and Output 09/09/19 09/09/19 09/10/19 15:00 23:00 07:00 Intake Total 0 ml 0 ml Output Total 300 ml 200 ml Balance -300 ml 0 ml -200 ml JAYNE MILLAN MD Sep 10, 2019 13:27
[2019-09-10 15:35] VITALS: BP 166/79
--- NOTE | 2019-09-10 17:27 | NUR ---
Pt positioned at 90 degrees before assisting with dinner. This RN fed pt 4-5 bites with a sip in between, then pt began to pocket food in her mouth. This RN provided verbal cueing to pt in regards to chewing and swallowing. Pt held food in her left cheek and did not chew. This RN asked the pt if she was still hungry and she responded "no." This RN completed oral care after bites of meal were taken.
[2019-09-10 19:42] VITALS: BP 92/47
[2019-09-10 21:00] VITALS: BP 105/45
[2019-09-10] MEDS: PATCH REMOVAL. MC SCH (21:00)
[2019-09-10] MEDS: ATORVASTATIN CALCIUM 40 MG TABLET. PO SCH (21:27)
[2019-09-10 23:32] VITALS: BP 91/40
[2019-09-11] MEDS: SODIUM BICARBONATE VIAL 100 MEQ in IV DEXTROSE 5% 1,000 ML IV SCH (01:43)
[2019-09-11 02:49] VITALS: BP 92/49
[2019-09-11 05:39] LABS: ALBUMIN 2.3 g/dL (3.4-5.0); CALCIUM 7.3 mg/dL (8.5-10.1); CREATININE 3.8 mg/dL (0.6-1.0); GFR 12.8
[2019-09-11 05:43] LABS: POTASSIUM 2.2 mmol/L (3.5-5.1)
[2019-09-11] MEDS: hydrALAZINE 25 MG TABLET PO SCH ×3 (06:00→18:00)
[2019-09-11] MEDS: PIPERACILLIN/TAZOBACTAM 2.25 GM in IV NORMAL SALINE 50ML 50 ML IV SCH ×3 (06:10→22:00)
[2019-09-11 07:00] VITALS: BP 112/58
[2019-09-11] MEDS: POTASSIUM CHLORIDE 10MEQ 100 ML IV SCH ×4 (07:27→13:00)
[2019-09-11] MEDS: LIDOCAINE (700MG/PATCH) PATCH. TP SCH (09:00)
[2019-09-11] MEDS: GABAPENTIN 400 MG CAPSULE. PO SCH (10:41)
[2019-09-11] MEDS: ASPIRIN CHEWABLE 81 MG TABLET. PO SCH (10:42)
[2019-09-11] MEDS: CITALOPRAM 20 MG TABLET. PO SCH (10:42)
[2019-09-11] MEDS: PANTOPRAZOLE 40 MG TABLET.DR. PO SCH (10:42)
[2019-09-11] MEDS: tiZANidine 4 MG TABLET. PO SCH ×4 (10:43→23:24)
[2019-09-11] MEDS: CARVEDILOL 12.5 MG TABLET. PO SCH ×2 (10:43→17:00)
[2019-09-11] MEDS: NYSTATIN TOPICAL POWDER 15GM BOTTLE. TP SCH ×2 (10:50→23:26)
[2019-09-11] MEDS: amLODIPine BESYLATE 5 MG TABLET PO SCH (10:57)
[2019-09-11 11:00] VITALS: BP 158/92
--- NOTE | 2019-09-11 11:08 | PDOC ---
SUBJECTIVE ROS More alert , Denies any complaints OBJECTIVE Vital Signs Vital Signs Date Time Temp Pulse Resp B/P (MAP) Pulse Ox O2 Delivery O2 Flow Rate FiO2 09/11/19 10:57 66 112/58 09/11/19 07:00 97.8 20 98 Room Air 97.8 I & 0 Intake and Output 09/11/19 07:00 Intake Total 1200 ml Balance 1200 ml Intake Oral 0 ml IV Total 1200 ml # Voids 2 # Bowel Movements 4 PHYSICAL EXAM Physical Exam General: NAD HEEN-OM dry Neck supple CV: S1S2 Lungs: Clear, Non labored Abdomen: Soft, NT Extremities: No LE edema Skin: No rashes Baez +, No CVA or SP tenderness Neuro- Hx of CVA DIAGNOSIS/ASSESSMENT Assessment & Plan LESLIE - ATN/2/2 Dehydration/UTI/ severe Hypotension Baseline Cr was normal recently lisinopril held , Oligoanuric at presentation ,Pt has a baez, UOP has not been recorded accurately Renal US unremarkable, Initiated on HD 09/08 , 2nd treatment 09/09- Will hold off [employer] today Monitor for renal recovery Supportive care , avoid Nephrotoxins , Daily BMP , strict I/O (intake recorded as zero/UOP not recorded ) Metabolic acidosis- No response to IV Bicarb, initiated on HD Switch to IV NS HypoKalemia- Replace HypoCalcemia - Improved after 1 st treatment, Normal after correcting for Albumin HyperPhos- improved Post HD ,Low today, replace K phos IV UTI- Abx per primary Hx of Seizures- hospitalized in July Acute superior posterior right frontal lobe infarct on the old stroke in July Hx of Hypertensive emergency in July 2019- BP 231/105 mmHg. Currently sever Hypotension at Rehab and Low BP at presentation as well , Improving Metabolic encephalopathy. DM. 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 Morbid obesity. COMMENT/RELEVANT DATA Meds Current Medications Medications (Trade) Dose Ordered Sig/Jace Start Time Stop Time Status Last Admin Dose Admin Acetaminophen (Tylenol Supp) 325 mg PRN Q6HRS PRN 09/09/19 23:15 09/10/19 00:12 325 MG Albumin Human 200 ml @ 200 mls/hr 1X PRN PRN 09/10/19 07:30 09/10/19 13:29 DC Amlodipine Besylate (Norvasc) 5 mg DAILY 09/09/19 09:00 09/11/19 10:57 5 MG Aspirin (Aspirin Chewable) 81 mg DAILY 09/09/19 09:00 09/11/19 10:42 81 MG Atorvastatin Calcium (Lipitor) 40 mg QHS 09/09/19 21:00 09/10/19 21:27 40 MG Calcium Chloride 2000 mg/Sodium Chloride 120 ml @ 240 mls/hr 1X ONCE 09/08/19 15:00 09/08/19 15:39 DC Calcium Gluconate 2000 mg/Sodium Chloride 120 ml @ 220 mls/hr 1X ONCE 09/08/19 16:00 09/08/19 16:32 DC 09/08/19 15:58 220 MLS/HR Carvedilol (Coreg) 25 mg BIDWMEALS 09/09/19 08:00 09/11/19 10:43 25 MG Ceftriaxone Sodium (Rocephin) 1 gm Q24H 09/09/19 09:15 UNV Citalopram Hydrobromide (CeleXA) 20 mg DAILY 09/09/19 09:00 09/11/19 10:42 20 MG Gabapentin (Neurontin) 800 mg DAILY 09/09/19 09:00 09/11/19 10:41 800 MG Hydralazine HCl (Apresoline) 25 mg Q6HRS 09/09/19 12:00 09/10/19 17:06 25 MG Hydrocortisone (Cortaid) 1 gina PRN Q6HRS PRN 09/09/19 08:00 Info (PHARMACY MONITORING -- do not chart) 1 each PRN DAILY PRN 09/10/19 07:30 Labetalol HCl (Normodyne Iv Push) 10 mg 1X ONCE 09/08/19 03:00 09/08/19 03:02 DC Lidocaine (Lidoderm) 1 patch DAILY 09/09/19 09:00 09/09/19 09:46 1 PATCH Lidocaine HCl (Buffered Lidocaine 1%) 4 ml 1X ONCE 09/09/19 13:15 09/09/19 13:16 DC 09/09/19 13:07 4 ML Magnesium Sulfate 50 ml @ 25 mls/hr 1X ONCE 09/08/19 02:45 09/08/19 04:44 DC 09/08/19 02:51 25 MLS/HR Miscellaneous (Lidoderm Patch Removal) 1 ea QHS 09/09/19 21:00 09/10/19 21:00 1 EA Non-Formulary Medication (Melatonin ) 1 tab QHS 09/09/19 21:00 UNV Nystatin (Nystop) 1 gina BID 09/08/19 21:00 09/11/19 10:50 1 GINA Ondansetron HCl (Zofran) 4 mg PRN Q8HRS PRN 09/08/19 02:30 09/09/19 02:29 DC Pantoprazole Sodium (Protonix) 40 mg DAILYAC 09/09/19 08:00 09/11/19 10:42 40 MG Piperacillin Sod/ Tazobactam Sod 2.25 gm/Sodium Chloride 50 ml @ 100 mls/hr Q8HRS 09/10/19 00:00 09/11/19 06:10 100 MLS/HR Potassium Chloride/Water 100 ml @ 100 mls/hr Q1H 09/11/19 07:00 09/11/19 10:59 DC 09/11/19 10:35 100 MLS/HR Sodium Bicarbonate 100 meq/Dextrose 1,100 ml @ 75 mls/hr [id number] 09/08/19 15:30 09/11/19 01:43 75 MLS/HR Sodium Chloride 1,000 ml @ 400 mls/hr Q2H30M PRN 09/10/19 07:26 09/10/19 19:25 DC Sodium Chloride (Normal Saline Flush) 10 ml 1X PRN PRN 09/10/19 07:30 09/11/19 07:29 DC Tizanidine HCl (Zanaflex) 8 mg QID 09/09/19 09:00 09/11/19 10:43 8 MG Lab Laboratory Tests Test 09/10/19 16:43 09/10/19 19:08 09/11/19 04:45 09/11/19 08:06 Glucose (Fingerstick) 162 mg/dL (70-99) 174 mg/dL (70-99) 134 mg/dL (70-99) Sodium Level 139 mmol/L (136-145) Potassium Level 2.2 mmol/L (3.5-5.1) Chloride Level 100 mmol/L (98-107) Carbon Dioxide Level 30 mmol/L (21-32) Anion Gap 9 (6-14) Blood Urea Nitrogen 20 mg/dL (7-20) Creatinine 3.8 mg/dL (0.6-1.0) Estimated GFR (Cockcroft-Gault) 12.8 Glucose Level 164 mg/dL (70-99) Calcium Level 7.3 mg/dL (8.5-10.1) Phosphorus Level 2.0 mg/dL (2.6-4.7) Albumin 2.3 g/dL (3.4-5.0) Test 09/11/19 10:51 Glucose (Fingerstick) 125 mg/dL (70-99) Results All relevant outside records, renal labs, imaging studies, telemetry/EKG's were reviewed. Justicifation of Admission Dx: Justifications for Admission: Justification of Admission Dx: Yes Sepsis: Hemodynamic Instability JARAD PACKER MD Sep 11, 2019 11:08
--- NOTE | 2019-09-11 11:16 | PDOC ---
PROGRESS NOTES Chief Complaint Chief Complaint Acute encephalopathy, etiology undetermined which may be central etiology versus uremia (metabolic) Suspected UTI Hypokalemia Acute renal failure, vasomotor etiology most likely High anion gap metabolic acidosis History of diabetes mellitus type 2 Essential hypertension History of CVA Plan results of CT of the head reviewed please see below Renal ultrasound reviewed normal findings. Resume home medications will need to be started on dialysis as per residential solar consultant. recommendations greatly appreciated. Reassess in the a.m. Further recommendations based on the clinical course DVT prophylaxis with SCDs CT head: CT of the head without contrast HISTORY: Encephalopathy Comparison study: CT of the head without contrast July 30, 2019 Discussion: CT scan of the brain was done without contrast. There is no intracranial hemorrhage. Ventricles are unchanged in size. Similar-appearing right parasagittal frontal and parietal lobe encephalomalacia. No evidence of subacute territorial infarct is identified. No evidence of new chronic infarct is seen.. There is no shift of the midline. No acute midline shift is identified. No acute osseous changes are seen. IMPRESSION: Stable exam without evidence of acute intracranial abnormality History of Present Illness History of Present Illness 09/08: No acute events reported overnight, case discussed with nursing staff patient in no acute distress no complaints during my visit, patient still non verbal results of her CT of the head reviewed and found negative, labs noted 09/09: Patient continues to be pretty much the same seems to be a little bit more responsive today compared to yesterday she responds to her name no acute events reported overnight tolerating hemodialysis well this may well be metabolic encephalopathy hopefully with correction of her electrolytes she may be coming out of her stupor. Case management requesting COVID testing first and under investigation for placement 09/10: No acute events reported overnight, case discussed with nursing staff patient in no acute distress no complaints during my visit her altered mental status seems to be related to uremia, will continue to follow monitor daily basis electrolyte disturbance noted which can be corrected during dialysis Vitals Vitals Vital Signs Date Time Temp Pulse Resp B/P (MAP) Pulse Ox O2 Delivery O2 Flow Rate FiO2 09/11/19 10:57 66 112/58 09/11/19 07:00 97.8 20 98 Room Air 97.8 Physical Exam Physical Exam GEN.: No apparent distress. Alert difficult to assess if she is oriented but responds to her name HEENT: Head is normocephalic, atraumatic NECK: Supple. LUNGS: Clear to auscultation. HEART: RRR, S1, S2 present. Peripheral pulses intact ABDOMEN: Soft, nontender. Positive bowel sounds. EXTREMITIES: Without any cyanosis. NEUROLOGIC: Cranial nerves II to XII seem to be grossly intact patient is moving all extremities PSYCHIATRIC: Unable to evaluate SKIN: No ulcerations General: Alert Lungs: Clear Labs LABS Laboratory Tests Test 09/10/19 16:43 09/10/19 19:08 09/11/19 04:45 09/11/19 08:06 Glucose (Fingerstick) 162 mg/dL (70-99) 174 mg/dL (70-99) 134 mg/dL (70-99) Sodium Level 139 mmol/L (136-145) Potassium Level 2.2 mmol/L (3.5-5.1) Chloride Level 100 mmol/L (98-107) Carbon Dioxide Level 30 mmol/L (21-32) Anion Gap 9 (6-14) Blood Urea Nitrogen 20 mg/dL (7-20) Creatinine 3.8 mg/dL (0.6-1.0) Estimated GFR (Cockcroft-Gault) 12.8 Glucose Level 164 mg/dL (70-99) Calcium Level 7.3 mg/dL (8.5-10.1) Phosphorus Level 2.0 mg/dL (2.6-4.7) Albumin 2.3 g/dL (3.4-5.0) Test 09/11/19 10:51 Glucose (Fingerstick) 125 mg/dL (70-99) Assessment and Plan Assessmemt and Plan Problems Medical Problems: (1) Acute kidney failure Status: Acute (2) Hypotension Status: Acute (3) Severe dehydration Status: Acute (4) UTI (urinary tract infection) Status: Acute Comment Review of Relevant I have reviewed the following items dunia (where applicable) has been applied. Labs Laboratory Tests Test 09/09/19 11:42 09/09/19 13:45 09/09/19 19:32 09/10/19 03:13 Glucose (Fingerstick) 164 mg/dL (70-99) 136 mg/dL (70-99) Coronavirus (COVID-19)(PCR) Not detected (NOT DETECT.) Sodium Level 140 mmol/L (136-145) Potassium Level 2.6 mmol/L (3.5-5.1) Chloride Level 101 mmol/L (98-107) Carbon Dioxide Level 21 mmol/L (21-32) Anion Gap 18 (6-14) Blood Urea Nitrogen 31 mg/dL (7-20) Creatinine 5.7 mg/dL (0.6-1.0) Estimated GFR (Cockcroft-Gault) 8.0 Glucose Level 164 mg/dL (70-99) Calcium Level 7.7 mg/dL (8.5-10.1) Phosphorus Level 3.5 mg/dL (2.6-4.7) Albumin 2.7 g/dL (3.4-5.0) Test 09/10/19 07:24 09/10/19 16:43 09/10/19 19:08 09/11/19 04:45 Glucose (Fingerstick) 180 mg/dL (70-99) 162 mg/dL (70-99) 174 mg/dL (70-99) Sodium Level 139 mmol/L (136-145) Potassium Level 2.2 mmol/L (3.5-5.1) Chloride Level 100 mmol/L (98-107) Carbon Dioxide Level 30 mmol/L (21-32) Anion Gap 9 (6-14) Blood Urea Nitrogen 20 mg/dL (7-20) Creatinine 3.8 mg/dL (0.6-1.0) Estimated GFR (Cockcroft-Gault) 12.8 Glucose Level 164 mg/dL (70-99) Calcium Level 7.3 mg/dL (8.5-10.1) Phosphorus Level 2.0 mg/dL (2.6-4.7) Albumin 2.3 g/dL (3.4-5.0) Test 09/11/19 08:06 09/11/19 10:51 Glucose (Fingerstick) 134 mg/dL (70-99) 125 mg/dL (70-99) Laboratory Tests Test 09/10/19 16:43 09/10/19 19:08 09/11/19 04:45 09/11/19 08:06 Glucose (Fingerstick) 162 mg/dL (70-99) 174 mg/dL (70-99) 134 mg/dL (70-99) Sodium Level 139 mmol/L (136-145) Potassium Level 2.2 mmol/L (3.5-5.1) Chloride Level 100 mmol/L (98-107) Carbon Dioxide Level 30 mmol/L (21-32) Anion Gap 9 (6-14) Blood Urea Nitrogen 20 mg/dL (7-20) Creatinine 3.8 mg/dL (0.6-1.0) Estimated GFR (Cockcroft-Gault) 12.8 Glucose Level 164 mg/dL (70-99) Calcium Level 7.3 mg/dL (8.5-10.1) Phosphorus Level 2.0 mg/dL (2.6-4.7) Albumin 2.3 g/dL (3.4-5.0) Test 09/11/19 10:51 Glucose (Fingerstick) 125 mg/dL (70-99) Microbiology 09/09/19 Blood Culture - Preliminary, Resulted NO GROWTH AFTER 1 DAY 09/08/19 Urine Culture - Final, Complete 09/08/19 Antimicrobic Susceptibility - Final, Complete Medications Current Medications Sodium Chloride 1,000 ml @ 1,000 mls/hr Q1H IV Last administered on 09/07/19at 00:40; Start 09/07/19 at 23:30; Stop 09/08/19 at 00:29; Status DC Ceftriaxone Sodium (Rocephin) 1 gm 1X ONCE IVP Last administered on 09/08/19at 02:50; Start 09/08/19 at 02:45; Stop 09/08/19 at 02:46; Status DC Magnesium Sulfate 50 ml @ 25 mls/hr 1X ONCE IV Last administered on 09/08/19at 02:51; Start 09/08/19 at 02:45; Stop 09/08/19 at 04:44; Status DC Ondansetron HCl (Zofran) 4 mg PRN Q8HRS PRN IV NAUSEA/VOMITING; Start 09/08/19 at 02:30; Stop 09/09/19 at 02:29; Status DC Sodium Chloride 1,000 ml @ 150 mls/hr Q6H40M IV Last administered on 09/08/19at 08:42; Start 09/08/19 at 02:02; Stop 09/09/19 at 02:01; Status DC Labetalol HCl (Normodyne Iv Push) 10 mg 1X ONCE IVP ; Start 09/08/19 at 03:00; Stop 09/08/19 at 03:02; Status DC Sodium Chloride 1,000 ml @ 1,000 mls/hr 1X ONCE IV Last administered on 09/08/19at 10:45; Start 09/08/19 at 10:45; Stop 09/08/19 at 11:44; Status DC Sodium Bicarbonate 100 meq/Dextrose 1,100 ml @ 75 mls/hr [id number] IV Last administered on 09/11/19at 01:43; Start 09/08/19 at 15:30 Calcium Chloride 2000 mg/Sodium Chloride 120 ml @ 240 mls/hr 1X ONCE IV ; Start 09/08/19 at 15:00; Stop 09/08/19 at 15:39; Status DC Calcium Gluconate 2000 mg/Sodium Chloride 120 ml @ 220 mls/hr 1X ONCE IV Last administered on 09/08/19at 15:58; Start 09/08/19 at 16:00; Stop 09/08/19 at 16:32; Status DC Nystatin (Nystop) 1 jennifer BID TP Last administered on 09/11/19at 10:50; Start 09/08/19 at 21:00 Ceftriaxone Sodium (Rocephin) 1 gm Q24H IVP Last administered on 09/09/19at 06:31; Start 09/09/19 at 06:00; Stop 09/09/19 at 23:06; Status DC Amlodipine Besylate (Norvasc) 5 mg DAILY PO Last administered on 09/11/19 10:57; Start 09/09/19 at 09:00 Aspirin (Aspirin Chewable) 81 mg DAILY PO Last administered on 09/11/19 10:42; Start 09/09/19 at 09:00 Atorvastatin Calcium (Lipitor) 40 mg QHS PO Last administered on 09/10/19 21:27; Start 09/09/19 at 21:00 Hydralazine HCl (Apresoline) 25 mg Q6HRS PO Last administered on 09/10/19at 17:06; Start 09/09/19 at 12:00 Lidocaine (Lidoderm) 1 patch DAILY TP Last administered on 09/09/19at 09:46; Start 09/09/19 at 09:00 Pantoprazole Sodium (Protonix) 40 mg DAILYAC PO Last administered on 09/11/19 10:42; Start 09/09/19 at 08:00 Tizanidine HCl (Zanaflex) 8 mg QID PO Last administered on 09/11/19 10:43; Start 09/09/19 at 09:00 Carvedilol (Coreg) 25 mg BIDWMEALS PO Last administered on 09/11/19 10:43; Start 09/09/19 at 08:00 Citalopram Hydrobromide (CeleXA) 20 mg DAILY PO Last administered on 09/11/19 10:42; Start 09/09/19 at 09:00 Gabapentin (Neurontin) 800 mg DAILY PO Last administered on 09/11/19 10:41; Start 09/09/19 at 09:00 Hydrocortisone (Cortaid) 1 jennifer PRN Q6HRS PRN TP RASH; Start 09/09/19 at 08:00 Non-Formulary Medication (Melatonin ) 1 tab QHS PO ; Start 09/09/19 at 21:00; Status UNV Miscellaneous (Lidoderm Patch Removal) 1 ea QHS MC Last administered on 09/10/19at 21:00; Start 09/09/19 at 21:00 Ceftriaxone Sodium (Rocephin) 1 gm Q24H IVP ; Start 09/09/19 at 09:15; Status UNV Sodium Chloride 1,000 ml @ 1,000 mls/hr Q1H PRN IV hypotension; Start 09/09/19 at 10:00; Stop 09/09/19 at 15:59; Status DC Albumin Human 200 ml @ 200 mls/hr 1X PRN PRN IV Hypotension; Start 09/09/19 at 10:00; Stop 09/09/19 at 15:59; Status DC Sodium Chloride (Normal Saline Flush) 10 ml 1X PRN PRN IV AP catheter pack; Start 09/09/19 at 10:00; Stop 09/10/19 at 09:59; Status DC Sodium Chloride (Normal Saline Flush) 10 ml 1X PRN PRN IV 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; Start 09/09/19 at 10:00; Stop 09/10/19 at 09:59; Status DC Sodium Chloride 1,000 ml @ 400 mls/hr Q2H30M PRN IV PATENCY; Start 09/09/19 at 10:00; Stop 09/09/19 at 21:59; Status DC Info (PHARMACY MONITORING -- do not chart) 1 each PRN DAILY PRN MC SEE COMMENTS; Start 09/09/19 at 10:00; Stop 09/09/19 at 10:07; Status DC Info (PHARMACY MONITORING -- do not chart) 1 each PRN DAILY PRN MC SEE COMMENTS; Start 09/09/19 at 10:00 Lidocaine HCl (Buffered Lidocaine 1%) 3 ml STK-MED ONCE .ROUTE ; Start 09/09/19 at 12:26; Stop 09/09/19 at 12:27; Status DC Lidocaine HCl (Buffered Lidocaine 1%) 4 ml 1X ONCE INJ Last administered on 09/09/19at 13:07; Start 09/09/19 at 13:15; Stop 09/09/19 at 13:16; Status DC Acetaminophen (Tylenol Supp) 325 mg PRN Q6HRS PRN OK MILD PAIN / TEMP > 100.3'F Last administered on 09/10/19at 00:12; Start 09/09/19 at 23:15 Piperacillin Sod/ Tazobactam Sod 2.25 gm/Sodium Chloride 50 ml @ 100 mls/hr Q8HRS IV Last administered on 09/11/19at 06:10; Start 09/10/19 at 00:00 Sodium Chloride 1,000 ml @ 1,000 mls/hr Q1H PRN IV hypotension; Start 09/10/19 at 07:26; Stop 09/10/19 at 13:25; Status DC Albumin Human 200 ml @ 200 mls/hr 1X PRN PRN IV Hypotension; Start 09/10/19 at 07:30; Stop 09/10/19 at 13:29; Status DC Sodium Chloride (Normal Saline Flush) 10 ml 1X PRN PRN IV AP catheter pack; Start 09/10/19 at 07:30; Stop 09/11/19 at 07:29; Status DC Sodium Chloride (Normal Saline Flush) 10 ml 1X PRN PRN IV 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; Start 09/10/19 at 07:30; Stop 09/11/19 at 07:29; Status DC Sodium Chloride 1,000 ml @ 400 mls/hr Q2H30M PRN IV PATENCY; Start 09/10/19 at 07:26; Stop 09/10/19 at 19:25; Status DC Info (PHARMACY MONITORING -- do not chart) 1 each PRN DAILY PRN MC SEE COMMENTS; Start 09/10/19 at 07:30 Potassium Chloride/Water 100 ml @ 50 mls/hr Q2HR IV ; Start 09/10/19 at 08:00; Stop 09/10/19 at 08:45; Status DC Potassium Chloride/Water 100 ml @ 100 mls/hr Q1H IV Last administered on 09/11/19at 10:35; Start 09/11/19 at 07:00; Stop 09/11/19 at 10:59; Status DC Potassium Phosphate 13.6 mmol/Sodium Chloride 254.5333 ml @ 127.... Q2H IV ; Start 09/11/19 at 12:00; Stop 09/11/19 at 15:59 Active Scripts Active Hydralazine Hcl 25 Mg Tablet 25 Mg PO Q6HRS 60 Days Atorvastatin Calcium 40 Mg Tablet 40 Mg PO QHS Reported Zofran (Ondansetron Hcl) 4 Mg Tablet 1 Tab PO PRN Q6HRS PRN Topiramate 25 Mg Tablet 3 Tab PO BID 30 Days Tizanidine Hcl 4 Mg Tablet 2 Tab PO QID Gabapentin 800 Mg Tablet 800 Mg PO TID Melatonin 1 Mg Tablet 1 Tab PO QHS 30 Days Loperamide (Loperamide Hcl) 2 Mg Tablet 2 Mg PO PRN Q4HRS Lidocaine PATCH (Lidocaine) 1 Each Adh..patch 1 Each TP DAILY REMOVE AFTER 12 HOURS Hydrocortisone 453.6 Gm Cream..g. 1 Jennifer TP PRN Q6HRS D3-50 (Cholecalciferol (Vitamin D3)) 50,000 Unit Capsule 1,000 Unit PO DAILY Carvedilol 25 Mg Tablet 25 Mg PO BIDWMEALS Aspirin 81 Mg Tab.chew 1 Tab PO DAILY Amlodipine Besylate 5 Mg Tablet 5 Mg PO DAILY Acetaminophen 500 Mg Tablet 1,000 Mg PO PRN Q4HRS PRN Escitalopram Oxalate 10 Mg Tablet 10 Mg PO DAILY Metformin Hcl Er (Metformin Hcl) 750 Mg Tab.er.24h 1 Tab PO BID 30 Days Protonix (Pantoprazole Sodium) 40 Mg Tablet.dr 40 Mg PO DAILYAC Zestril (Lisinopril) 40 Mg Tablet 40 Mg PO DAILY Vitals/I & O Vital Sign - Last 24 Hours 09/10/19 09/10/19 09/10/19 09/10/19 15:35 17:06 17:06 19:42 Temp 98.9 99.1 98.9 99.1 Pulse 85 93 93 72 Resp 20 20 B/P (MAP) 166/79 (108) 152/83 152/83 92/47 (62) Pulse Ox 96 90 O2 Delivery Room Air Room Air 09/10/19 09/10/19 09/10/19 09/10/19 19:45 21:00 23:32 23:35 Temp 98.6 98.6 Pulse 73 69 69 Resp 24 B/P (MAP) 105/45 (65) 91/40 (57) 91/40 Pulse Ox 96 O2 Delivery Room Air Room Air 09/11/19 09/11/19 09/11/19 09/11/19 02:49 06:00 07:00 10:43 Temp 98.3 97.8 98.3 97.8 Pulse 63 68 66 66 Resp 20 20 B/P (MAP) 92/49 (63) 109/73 112/58 (76) 112/58 Pulse Ox 100 98 O2 Delivery Room Air Room Air 09/11/19 10:57 Pulse 66 B/P (MAP) 112/58 Intake and Output 09/10/19 09/10/19 09/11/19 15:00 23:00 07:00 Intake Total 50 ml 50 ml 1100 ml Balance 50 ml 50 ml 1100 ml JAYNE MILLAN MD Sep 11, 2019 11:16
[2019-09-11] MEDS: POTASSIUM PHOS,M-BASIC-D-BASIC 13.6 MMOL in IV NORMAL SALINE 250ML 250 ML IV SCH ×2 (13:07→15:14)
[2019-09-11 15:00] VITALS: BP 90/46
[2019-09-11 19:49] VITALS: BP 106/57
[2019-09-11] MEDS: PATCH REMOVAL. MC SCH (21:00)
[2019-09-11] MEDS: ATORVASTATIN CALCIUM 40 MG TABLET. PO SCH (23:24)
[2019-09-11 23:52] VITALS: BP 133/71
--- NOTE | 2019-09-12 00:25 | NUR ---
Did not find lidoderm patch to remove
[2019-09-12 03:36] VITALS: BP 111/53
[2019-09-12] MEDS: IV NORMAL SALINE 1000ML BAG 1,000 ML IV SCH ×3 (04:21→21:38)
[2019-09-12 05:12] LABS: ALBUMIN 2.3 g/dL (3.4-5.0); CREATININE 4.1 mg/dL (0.6-1.0); GFR 11.8; PHOSPHORUS 3.1 mg/dL (2.6-4.7)
--- NOTE | 2019-09-12 05:12 | NUR ---
Note: The bag on NS was hung at approximately 2200, as her infusion of potassium phosphate was continuing to infuse beyond the start time of the NS. Had trouble scanning the 2200 Zosyn, so administered, then was informed that the procedure for scanning had been changed,
[2019-09-12 05:17] LABS: POTASSIUM 2.5 mmol/L (3.5-5.1)
[2019-09-12] MEDS: PIPERACILLIN/TAZOBACTAM 2.25 GM in IV NORMAL SALINE 50ML 50 ML IV SCH ×3 (06:19→21:37)
[2019-09-12] MEDS: hydrALAZINE 25 MG TABLET PO SCH ×4 (06:23→17:23)
[2019-09-12] MEDS ORDERED: POTASSIUM CHLORIDE 20 MEQ TABLET.ER. PO ONE (06:30)
[2019-09-12 07:51] VITALS: BP 120/69
[2019-09-12] MEDS: CARVEDILOL 12.5 MG TABLET. PO SCH ×2 (08:00→17:23)
[2019-09-12] MEDS: POTASSIUM CHLORIDE 10MEQ 100 ML IV SCH ×4 (08:16→17:22)
[2019-09-12] MEDS: tiZANidine 4 MG TABLET. PO SCH ×4 (09:00→21:37)
[2019-09-12] MEDS: LIDOCAINE (700MG/PATCH) PATCH. TP SCH (09:00)
[2019-09-12] MEDS ORDERED: IV NORMAL SALINE 1000ML BAG 1,000 ML IV PRN ×2 (10:00)
[2019-09-12] MEDS ORDERED: DIALYSIS PATIENT. MC PRN ×2 (11:30)
--- NOTE | 2019-09-12 12:33 | PDOC ---
Renal-Progress Notes Subjective Notes Notes NONE History of Present Illness Hx of present illness CONFUSED Vitals Vitals Vital Signs Date Time Temp Pulse Resp B/P (MAP) Pulse Ox O2 Delivery O2 Flow Rate FiO2 09/12/19 07:51 98.2 64 17 120/69 (86) 93 Room Air 98.2 Weight Weight [ ] I.O. Intake and Output Intake and Output 09/12/19 07:00 Intake Total 404.5333 ml Output Total 255 ml Balance 149.5333 ml Intake Oral 100 ml IV Total 304.5333 ml Output Urine Total 255 ml # Voids 25 # Bowel Movements 1 Labs Labs Laboratory Tests Test 09/11/19 17:34 09/11/19 20:56 09/12/19 04:30 09/12/19 07:01 Glucose (Fingerstick) 140 mg/dL (70-99) 102 mg/dL (70-99) 119 mg/dL (70-99) Sodium Level 140 mmol/L (136-145) Potassium Level 2.5 mmol/L (3.5-5.1) Chloride Level 103 mmol/L (98-107) Carbon Dioxide Level 28 mmol/L (21-32) Anion Gap 9 (6-14) Blood Urea Nitrogen 26 mg/dL (7-20) Creatinine 4.1 mg/dL (0.6-1.0) Estimated GFR (Cockcroft-Gault) 11.8 Glucose Level 124 mg/dL (70-99) Calcium Level 7.0 mg/dL (8.5-10.1) Phosphorus Level 3.1 mg/dL (2.6-4.7) Albumin 2.3 g/dL (3.4-5.0) Micro Micro Microbiology 09/09/19 Blood Culture - Preliminary, Resulted NO GROWTH AFTER 2 DAYS 09/08/19 Urine Culture - Final, Complete 09/08/19 Antimicrobic Susceptibility - Final, Complete Review of Systems Constitutional: yes: alert Ears/Nose/Throat: Yes: no symptom reported Eyes: Yes: no symptom reported Pulmonary: Yes no symptom reported Gastrointestional: Yes: constipation Musculoskeletal: Yes: muscle stiffness Skin: Yes no symptom reported Psychiatric/Neurological: Yes: no symptom reported Physical Exam General Appearance: no apparent distress Skin: warm Respiratory: decreased breath sounds Heart: S1S2 Abdomen: soft, bowel sounds present Genitourinary: bladder flat Extremities: pulses present Neurology: alert Musculoskeletal: Osteoarthritis, Other Assessment Assessment IMP LESLIE-NO CLEARANCE-NO CKD ATN-UO MODERATE MET ACIDOSIS-BETTER HYPOKALEMIA LEUCOCYTOSIS UTI HX CVA DM OBESITY MET ENCEPHALOPATHY PLAN ANTIBIOTICS CONT WITH HD FOR NOW NO UF AND CLEARANCE ON HIGH K BATH REPLACE K NEEDED CONT SALINE ZHANG MCDOWELL MD Sep 12, 2019 12:33
--- NOTE | 2019-09-12 12:42 | PDOC ---
Renal-Progress Notes Subjective Notes Notes CONFUSED History of Present Illness Hx of present illness STABLE Vitals Vitals Vital Signs Date Time Temp Pulse Resp B/P (MAP) Pulse Ox O2 Delivery O2 Flow Rate FiO2 09/12/19 07:51 98.2 64 17 120/69 (86) 93 Room Air 98.2 Weight Weight [ ] I.O. Intake and Output Intake and Output 09/12/19 07:00 Intake Total 404.5333 ml Output Total 255 ml Balance 149.5333 ml Intake Oral 100 ml IV Total 304.5333 ml Output Urine Total 255 ml # Voids 25 # Bowel Movements 1 Labs Labs Laboratory Tests Test 09/11/19 17:34 09/11/19 20:56 09/12/19 04:30 09/12/19 07:01 Glucose (Fingerstick) 140 mg/dL (70-99) 102 mg/dL (70-99) 119 mg/dL (70-99) Sodium Level 140 mmol/L (136-145) Potassium Level 2.5 mmol/L (3.5-5.1) Chloride Level 103 mmol/L (98-107) Carbon Dioxide Level 28 mmol/L (21-32) Anion Gap 9 (6-14) Blood Urea Nitrogen 26 mg/dL (7-20) Creatinine 4.1 mg/dL (0.6-1.0) Estimated GFR (Cockcroft-Gault) 11.8 Glucose Level 124 mg/dL (70-99) Calcium Level 7.0 mg/dL (8.5-10.1) Phosphorus Level 3.1 mg/dL (2.6-4.7) Albumin 2.3 g/dL (3.4-5.0) Micro Micro Microbiology 09/09/19 Blood Culture - Preliminary, Resulted NO GROWTH AFTER 2 DAYS 09/08/19 Urine Culture - Final, Complete 09/08/19 Antimicrobic Susceptibility - Final, Complete Review of Systems Constitutional: yes: alert Ears/Nose/Throat: Yes: no symptom reported Eyes: Yes: no symptom reported Pulmonary: Yes no symptom reported Gastrointestional: Yes: constipation Musculoskeletal: Yes: muscle stiffness Skin: Yes no symptom reported Psychiatric/Neurological: Yes: no symptom reported Physical Exam General Appearance: no apparent distress Skin: warm Respiratory: decreased breath sounds Heart: S1S2 Abdomen: soft, bowel sounds present Genitourinary: bladder flat Extremities: pulses present Neurology: alert Musculoskeletal: Osteoarthritis, Other Assessment Assessment IMP LESLIE-NO CLEARANCE-NO CKD ATN-UO MODERATE MET ACIDOSIS-BETTER HYPOKALEMIA LEUCOCYTOSIS UTI HX CVA DM OBESITY MET ENCEPHALOPATHY PLAN ANTIBIOTICS CONT WITH HD FOR NOW NO UF AND CLEARANCE ON HIGH K BATH REPLACE K NEEDED CONT SALINE ZHANG MCDOWELL MD Sep 12, 2019 12:41
[2019-09-12] MEDS: GABAPENTIN 400 MG CAPSULE. PO SCH (14:47)
[2019-09-12] MEDS: ASPIRIN CHEWABLE 81 MG TABLET. PO SCH (14:49)
[2019-09-12] MEDS: CITALOPRAM 20 MG TABLET. PO SCH (14:49)
[2019-09-12] MEDS: PANTOPRAZOLE 40 MG TABLET.DR. PO SCH (14:49)
[2019-09-12] MEDS: NYSTATIN TOPICAL POWDER 15GM BOTTLE. TP SCH ×2 (14:49→21:37)
[2019-09-12] MEDS: amLODIPine BESYLATE 5 MG TABLET PO SCH (14:50)
--- NOTE | 2019-09-12 14:50 | PDOC ---
PROGRESS NOTES Chief Complaint Chief Complaint Acute encephalopathy, etiology undetermined which may be central etiology versus uremia (metabolic) Suspected UTI Hypokalemia Acute renal failure, vasomotor etiology most likely High anion gap metabolic acidosis History of diabetes mellitus type 2 Essential hypertension History of CVA Plan results of CT of the head reviewed please see below Renal ultrasound reviewed normal findings. Resume home medications will need to be started on dialysis as per engineering consultant. recommendations greatly appreciated. Reassess in the a.m. Further recommendations based on the clinical course DVT prophylaxis with SCDs CT head: CT of the head without contrast HISTORY: Encephalopathy Comparison study: CT of the head without contrast July 30, 2019 Discussion: CT scan of the brain was done without contrast. There is no intracranial hemorrhage. Ventricles are unchanged in size. Similar-appearing right parasagittal frontal and parietal lobe encephalomalacia. No evidence of subacute territorial infarct is identified. No evidence of new chronic infarct is seen.. There is no shift of the midline. No acute midline shift is identified. No acute osseous changes are seen. IMPRESSION: Stable exam without evidence of acute intracranial abnormality History of Present Illness History of Present Illness 09/08: No acute events reported overnight, case discussed with nursing staff patient in no acute distress no complaints during my visit, patient still non verbal results of her CT of the head reviewed and found negative, labs noted 09/09: Patient continues to be pretty much the same seems to be a little bit more responsive today compared to yesterday she responds to her name no acute events reported overnight tolerating hemodialysis well this may well be metabolic encephalopathy hopefully with correction of her electrolytes she may be coming out of her stupor. Case management requesting COVID testing first and under investigation for placement 09/10: No acute events reported overnight, case discussed with nursing staff patient in no acute distress no complaints during my visit her altered mental status seems to be related to uremia, will continue to follow monitor daily basis electrolyte disturbance noted which can be corrected during dialysis 09/11: No acute events reported overnight, case discussed with nursing staff patient in no acute distress no complaints during my visit, patient seems to be back at baseline encephalopathy most likely due to uremia, will continue with dialysis as per engineering consultant. Electrolyte disturbance noted Vitals Vitals Vital Signs Date Time Temp Pulse Resp B/P (MAP) Pulse Ox O2 Delivery O2 Flow Rate FiO2 09/12/19 07:51 98.2 64 17 120/69 (86) 93 Room Air 98.2 Physical Exam Physical Exam GEN.: No apparent distress. Alert difficult to assess if she is oriented but responds to her name HEENT: Head is normocephalic, atraumatic NECK: Supple. LUNGS: Clear to auscultation. HEART: RRR, S1, S2 present. Peripheral pulses intact ABDOMEN: Soft, nontender. Positive bowel sounds. EXTREMITIES: Without any cyanosis. NEUROLOGIC: Cranial nerves II to XII seem to be grossly intact patient is moving all extremities PSYCHIATRIC: Unable to evaluate SKIN: No ulcerations General: Alert Lungs: Clear Labs LABS Laboratory Tests Test 09/11/19 17:34 09/11/19 20:56 09/12/19 04:30 09/12/19 07:01 Glucose (Fingerstick) 140 mg/dL (70-99) 102 mg/dL (70-99) 119 mg/dL (70-99) Sodium Level 140 mmol/L (136-145) Potassium Level 2.5 mmol/L (3.5-5.1) Chloride Level 103 mmol/L (98-107) Carbon Dioxide Level 28 mmol/L (21-32) Anion Gap 9 (6-14) Blood Urea Nitrogen 26 mg/dL (7-20) Creatinine 4.1 mg/dL (0.6-1.0) Estimated GFR (Cockcroft-Gault) 11.8 Glucose Level 124 mg/dL (70-99) Calcium Level 7.0 mg/dL (8.5-10.1) Phosphorus Level 3.1 mg/dL (2.6-4.7) Albumin 2.3 g/dL (3.4-5.0) Test 09/12/19 13:35 Glucose (Fingerstick) 89 mg/dL (70-99) Review of Systems Review of Systems Pertinent as per HPI otherwise 10 point review of system is negative Assessment and Plan Assessmemt and Plan Problems Medical Problems: (1) Acute kidney failure Status: Acute (2) Hypotension Status: Acute (3) Severe dehydration Status: Acute (4) UTI (urinary tract infection) Status: Acute Comment Review of Relevant I have reviewed the following items dunia (where applicable) has been applied. Labs Laboratory Tests Test 09/10/19 16:43 09/10/19 19:08 09/11/19 04:45 09/11/19 08:06 Glucose (Fingerstick) 162 mg/dL (70-99) 174 mg/dL (70-99) 134 mg/dL (70-99) Sodium Level 139 mmol/L (136-145) Potassium Level 2.2 mmol/L (3.5-5.1) Chloride Level 100 mmol/L (98-107) Carbon Dioxide Level 30 mmol/L (21-32) Anion Gap 9 (6-14) Blood Urea Nitrogen 20 mg/dL (7-20) Creatinine 3.8 mg/dL (0.6-1.0) Estimated GFR (Cockcroft-Gault) 12.8 Glucose Level 164 mg/dL (70-99) Calcium Level 7.3 mg/dL (8.5-10.1) Phosphorus Level 2.0 mg/dL (2.6-4.7) Albumin 2.3 g/dL (3.4-5.0) Test 09/11/19 10:51 09/11/19 12:15 09/11/19 17:34 09/11/19 20:56 Glucose (Fingerstick) 125 mg/dL (70-99) 140 mg/dL (70-99) 102 mg/dL (70-99) Potassium Level 2.5 mmol/L (3.5-5.1) Test 09/12/19 04:30 09/12/19 07:01 09/12/19 13:35 Sodium Level 140 mmol/L (136-145) Potassium Level 2.5 mmol/L (3.5-5.1) Chloride Level 103 mmol/L (98-107) Carbon Dioxide Level 28 mmol/L (21-32) Anion Gap 9 (6-14) Blood Urea Nitrogen 26 mg/dL (7-20) Creatinine 4.1 mg/dL (0.6-1.0) Estimated GFR (Cockcroft-Gault) 11.8 Glucose Level 124 mg/dL (70-99) Calcium Level 7.0 mg/dL (8.5-10.1) Phosphorus Level 3.1 mg/dL (2.6-4.7) Albumin 2.3 g/dL (3.4-5.0) Glucose (Fingerstick) 119 mg/dL (70-99) 89 mg/dL (70-99) Laboratory Tests Test 09/11/19 17:34 09/11/19 20:56 09/12/19 04:30 09/12/19 07:01 Glucose (Fingerstick) 140 mg/dL (70-99) 102 mg/dL (70-99) 119 mg/dL (70-99) Sodium Level 140 mmol/L (136-145) Potassium Level 2.5 mmol/L (3.5-5.1) Chloride Level 103 mmol/L (98-107) Carbon Dioxide Level 28 mmol/L (21-32) Anion Gap 9 (6-14) Blood Urea Nitrogen 26 mg/dL (7-20) Creatinine 4.1 mg/dL (0.6-1.0) Estimated GFR (Cockcroft-Gault) 11.8 Glucose Level 124 mg/dL (70-99) Calcium Level 7.0 mg/dL (8.5-10.1) Phosphorus Level 3.1 mg/dL (2.6-4.7) Albumin 2.3 g/dL (3.4-5.0) Test 09/12/19 13:35 Glucose (Fingerstick) 89 mg/dL (70-99) Microbiology 09/09/19 Blood Culture - Preliminary, Resulted NO GROWTH AFTER 2 DAYS 09/08/19 Urine Culture - Final, Complete 09/08/19 Antimicrobic Susceptibility - Final, Complete Medications Current Medications Sodium Chloride 1,000 ml @ 1,000 mls/hr Q1H IV Last administered on 09/07/19at 00:40; Start 09/07/19 at 23:30; Stop 09/08/19 at 00:29; Status DC Ceftriaxone Sodium (Rocephin) 1 gm 1X ONCE IVP Last administered on 09/08/19at 02:50; Start 09/08/19 at 02:45; Stop 09/08/19 at 02:46; Status DC Magnesium Sulfate 50 ml @ 25 mls/hr 1X ONCE IV Last administered on 09/08/19at 02:51; Start 09/08/19 at 02:45; Stop 09/08/19 at 04:44; Status DC Ondansetron HCl (Zofran) 4 mg PRN Q8HRS PRN IV NAUSEA/VOMITING; Start 09/08/19 at 02:30; Stop 09/09/19 at 02:29; Status DC Sodium Chloride 1,000 ml @ 150 mls/hr Q6H40M IV Last administered on 09/08/19at 08:42; Start 09/08/19 at 02:02; Stop 09/09/19 at 02:01; Status DC Labetalol HCl (Normodyne Iv Push) 10 mg 1X ONCE IVP ; Start 09/08/19 at 03:00; Stop 09/08/19 at 03:02; Status DC Sodium Chloride 1,000 ml @ 1,000 mls/hr 1X ONCE IV Last administered on 09/08/19at 10:45; Start 09/08/19 at 10:45; Stop 09/08/19 at 11:44; Status DC Sodium Bicarbonate 100 meq/Dextrose 1,100 ml @ 75 mls/hr [id number] IV Last administered on 09/11/19at 01:43; Start 09/08/19 at 15:30; Stop 09/11/19 at 18:03; Status DC Calcium Chloride 2000 mg/Sodium Chloride 120 ml @ 240 mls/hr 1X ONCE IV ; Start 09/08/19 at 15:00; Stop 09/08/19 at 15:39; Status DC Calcium Gluconate 2000 mg/Sodium Chloride 120 ml @ 220 mls/hr 1X ONCE IV Last administered on 09/08/19at 15:58; Start 09/08/19 at 16:00; Stop 09/08/19 at 16:32; Status DC Nystatin (Nystop) 1 jennifer BID TP Last administered on 09/11/19at 23:26; Start 09/08/19 at 21:00 Ceftriaxone Sodium (Rocephin) 1 gm Q24H IVP Last administered on 09/09/19at 06:31; Start 09/09/19 at 06:00; Stop 09/09/19 at 23:06; Status DC Amlodipine Besylate (Norvasc) 5 mg DAILY PO Last administered on 09/11/19at 10:57; Start 09/09/19 at 09:00 Aspirin (Aspirin Chewable) 81 mg DAILY PO Last administered on 09/11/19at 10:42; Start 09/09/19 at 09:00 Atorvastatin Calcium (Lipitor) 40 mg QHS PO Last administered on 09/11/19at 23:24; Start 09/09/19 at 21:00 Hydralazine HCl (Apresoline) 25 mg Q6HRS PO Last administered on 09/12/19at 0 6:23; Start 09/09/19 at 12:00 Lidocaine (Lidoderm) 1 patch DAILY TP Last administered on 09/09/19at 09:46; Start 09/09/19 at 09:00 Pantoprazole Sodium (Protonix) 40 mg DAILYAC PO Last administered on 09/11/19at 10:42; Start 09/09/19 at 08:00 Tizanidine HCl (Zanaflex) 8 mg QID PO Last administered on 09/11/19at 23:24; Start 09/09/19 at 09:00 Carvedilol (Coreg) 25 mg BIDWMEALS PO Last administered on 09/11/19 10:43; Start 09/09/19 at 08:00 Citalopram Hydrobromide (CeleXA) 20 mg DAILY PO Last administered on 09/11/19 10:42; Start 09/09/19 at 09:00 Gabapentin (Neurontin) 800 mg DAILY PO Last administered on 09/11/19at 10:41; Start 09/09/19 at 09:00 Hydrocortisone (Cortaid) 1 jennifer PRN Q6HRS PRN TP RASH; Start 09/09/19 at 08:00 Non-Formulary Medication (Melatonin ) 1 tab QHS PO ; Start 09/09/19 at 21:00; Status UNV Miscellaneous (Lidoderm Patch Removal) 1 ea QHS MC Last administered on 09/10/19at 21:00; Start 09/09/19 at 21:00 Ceftriaxone Sodium (Rocephin) 1 gm Q24H IVP ; Start 09/09/19 at 09:15; Status UNV Sodium Chloride 1,000 ml @ 1,000 mls/hr Q1H PRN IV hypotension; Start 09/09/19 at 10:00; Stop 09/09/19 at 15:59; Status DC Albumin Human 200 ml @ 200 mls/hr 1X PRN PRN IV Hypotension; Start 09/09/19 at 10:00; Stop 09/09/19 at 15:59; Status DC Sodium Chloride (Normal Saline Flush) 10 ml 1X PRN PRN IV AP catheter pack; Start 09/09/19 at 10:00; Stop 09/10/19 at 09:59; Status DC Sodium Chloride (Normal Saline Flush) 10 ml 1X PRN PRN IV SKIN PASS OPERATOR catheter pack; Start 09/09/19 at 10:00; Stop 09/10/19 at 09:59; Status DC Sodium Chloride 1,000 ml @ 400 mls/hr Q2H30M PRN IV PATENCY; Start 09/09/19 at 10:00; Stop 09/09/19 at 21:59; Status DC Info (PHARMACY MONITORING -- do not chart) 1 each PRN DAILY PRN MC SEE COMMENTS; Start 09/09/19 at 10:00; Stop 09/09/19 at 10:07; Status DC Info (PHARMACY MONITORING -- do not chart) 1 each PRN DAILY PRN MC SEE COMMENTS; Start 09/09/19 at 10:00; Status Cancel Lidocaine HCl (Buffered Lidocaine 1%) 3 ml STK-MED ONCE .ROUTE ; Start 09/09/19 at 12:26; Stop 09/09/19 at 12:27; Status DC Lidocaine HCl (Buffered Lidocaine 1%) 4 ml 1X ONCE INJ Last administered on 09/09/19at 13:07; Start 09/09/19 at 13:15; Stop 09/09/19 at 13:16; Status DC Acetaminophen (Tylenol Supp) 325 mg PRN Q6HRS PRN [place] MILD PAIN / TEMP > 100.3'F Last administered on 09/10/19at 00:12; Start 09/09/19 at 23:15 Piperacillin Sod/ Tazobactam Sod 2.25 gm/Sodium Chloride 50 ml @ 100 mls/hr Q8HRS IV Last administered on 09/12/19at 06:19; Start 09/10/19 at 00:00 Sodium Chloride 1,000 ml @ 1,000 mls/hr Q1H PRN IV hypotension; Start 09/10/19 at 07:26; Stop 09/10/19 at 13:25; Status DC Albumin Human 200 ml @ 200 mls/hr 1X PRN PRN IV Hypotension; Start 09/10/19 at 07:30; Stop 09/10/19 at 13:29; Status DC Sodium Chloride (Normal Saline Flush) 10 ml 1X PRN PRN IV AP catheter pack; Start 09/10/19 at 07:30; Stop 09/11/19 at 07:29; Status DC Sodium Chloride (Normal Saline Flush) 10 ml 1X PRN PRN IV SKIN PASS OPERATOR catheter pack; Start 09/10/19 at 07:30; Stop 09/11/19 at 07:29; Status DC Sodium Chloride 1,000 ml @ 400 mls/hr Q2H30M PRN IV PATENCY; Start 09/10/19 at 07:26; Stop 09/10/19 at 19:25; Status DC Info (PHARMACY MONITORING -- do not chart) 1 each PRN DAILY PRN MC SEE COMMENTS; Start 09/10/19 at 07:30 Potassium Chloride/Water 100 ml @ 50 mls/hr Q2HR IV ; Start 09/10/19 at 08:00; Stop 09/10/19 at 08:45; Status DC Potassium Chloride/Water 100 ml @ 100 mls/hr Q1H IV Last administered on 09/11/19at 13:00; Start 09/11/19 at 07:00; Stop 09/11/19 at 10:59; Status DC Potassium Phosphate 13.6 mmol/Sodium Chloride 254.5333 ml @ 127.... Q2H IV Last administered on 09/11/19at 15:14; Start 09/11/19 at 12:00; Stop 09/11/19 at 15:59; Status DC Sodium Chloride 1,000 ml @ 75 mls/hr [id number] IV Last administered on 09/12/19at 08:15; Start 09/11/19 at 18:15 Potassium Chloride (Klor-Con) 40 meq 1X ONCE PO Last administered on 09/12/19at 06:25; Start 09/12/19 at 06:30; Stop 09/12/19 at 06:31; Status DC Potassium Chloride/Water 100 ml @ 100 mls/hr Q1H IV Last administered on 09/12/19at 08:16; Start 09/12/19 at 08:00; Stop 09/12/19 at 11:59; Status DC Sodium Chloride 1,000 ml @ 1,000 mls/hr Q1H PRN IV hypotension; Start 09/12/19 at 10:00; Stop 09/12/19 at 18:00 Sodium Chloride 1,000 ml @ 400 mls/hr Q2H30M PRN IV PATENCY; Start 09/12/19 at 10:00; Stop 09/12/19 at 21:59 Info (PHARMACY MONITORING -- do not chart) 1 each PRN DAILY PRN MC SEE COMMENTS; Start 09/12/19 at 11:30; Status UNV Info (PHARMACY MONITORING -- do not chart) 1 each PRN DAILY PRN MC SEE COMMENTS; Start 09/12/19 at 11:30; Status UNV Active Scripts Active Hydralazine Hcl 25 Mg Tablet 25 Mg PO Q6HRS 60 Days Atorvastatin Calcium 40 Mg Tablet 40 Mg PO QHS Reported Zofran (Ondansetron Hcl) 4 Mg Tablet 1 Tab PO PRN Q6HRS PRN Topiramate 25 Mg Tablet 3 Tab PO BID 30 Days Tizanidine Hcl 4 Mg Tablet 2 Tab PO QID Gabapentin 800 Mg Tablet 800 Mg PO TID Melatonin 1 Mg Tablet 1 Tab PO QHS 30 Days Loperamide (Loperamide Hcl) 2 Mg Tablet 2 Mg PO PRN Q4HRS Lidocaine PATCH (Lidocaine) 1 Each Adh..patch 1 Each TP DAILY REMOVE AFTER 12 HOURS Hydrocortisone 453.6 Gm Cream..g. 1 Jennifer TP PRN Q6HRS D3-50 (Cholecalciferol (Vitamin D3)) 50,000 Unit Capsule 1,000 Unit PO DAILY Carvedilol 25 Mg Tablet 25 Mg PO BIDWMEALS Aspirin 81 Mg Tab.chew 1 Tab PO DAILY Amlodipine Besylate 5 Mg Tablet 5 Mg PO DAILY Acetaminophen 500 Mg Tablet 1,000 Mg PO PRN Q4HRS PRN Escitalopram Oxalate 10 Mg Tablet 10 Mg PO DAILY Metformin Hcl Er (Metformin Hcl) 750 Mg Tab.er.24h 1 Tab PO BID 30 Days Protonix (Pantoprazole Sodium) 40 Mg Tablet.dr 40 Mg PO DAILYAC Zestril (Lisinopril) 40 Mg Tablet 40 Mg PO DAILY Vitals/I & O Vital Sign - Last 24 Hours 09/11/19 09/11/19 09/11/19 09/11/19 15:00 17:00 18:00 19:49 Temp 97.8 98.3 97.8 98.3 Pulse 56 56 56 57 Resp 18 16 B/P (MAP) 90/46 (61) 90/46 90/46 106/57 (73) Pulse Ox 94 94 O2 Delivery Room Air Room Air 09/11/19 09/11/19 09/12/19 09/12/19 20:00 23:52 03:36 06:23 Temp 98.8 98.3 98.8 98.3 Pulse 63 60 66 Resp 18 18 B/P (MAP) 133/71 (91) 111/53 (72) 115/75 Pulse Ox 95 97 O2 Delivery Room Air Room Air Room Air 09/12/19 09/12/19 07:50 07:51 Temp 98.2 98.2 Pulse 64 Resp 17 B/P (MAP) 120/69 (86) Pulse Ox 93 O2 Delivery Room Air Room Air Intake and Output 09/11/19 09/11/19 09/12/19 15:00 23:00 07:00 Intake Total 100 ml 304.5333 ml Output Total 50 ml 55 ml 150 ml Balance 50 ml 249.5333 ml -150 ml JAYNE MILLAN MD Sep 12, 2019 14:50
[2019-09-12 15:20] VITALS: BP 178/88
[2019-09-12 19:00] VITALS: BP 124/55
[2019-09-12] MEDS: PATCH REMOVAL. MC SCH (19:49)
[2019-09-12] MEDS: ATORVASTATIN CALCIUM 40 MG TABLET. PO SCH (21:37)
[2019-09-12 23:00] VITALS: BP 138/68
[2019-09-13] MEDS: hydrALAZINE 25 MG TABLET PO SCH ×5 (01:24→23:33)
[2019-09-13] MEDS ORDERED: BUTALB/APAP/CAFEIN 50/325/40MG TABLET. PO PRN (02:45)
[2019-09-13 03:00] VITALS: BP 159/78
[2019-09-13] MEDS: PIPERACILLIN/TAZOBACTAM 2.25 GM in IV NORMAL SALINE 50ML 50 ML IV SCH ×3 (05:59→23:31)
[2019-09-13 07:45] VITALS: BP 180/71
[2019-09-13 09:14] LABS: ALBUMIN 2.5 g/dL (3.4-5.0); CALCIUM 7.6 mg/dL (8.5-10.1)
[2019-09-13 09:15] LABS: CREATININE 2.8 mg/dL (0.6-1.0); GFR 18.3; PHOSPHORUS 1.8 mg/dL (2.6-4.7)
[2019-09-13] MEDS: GABAPENTIN 400 MG CAPSULE. PO SCH (09:55)
[2019-09-13] MEDS: PANTOPRAZOLE 40 MG TABLET.DR. PO SCH (09:55)
[2019-09-13] MEDS: CITALOPRAM 20 MG TABLET. PO SCH (09:55)
[2019-09-13] MEDS: ASPIRIN CHEWABLE 81 MG TABLET. PO SCH (09:55)
[2019-09-13] MEDS: CARVEDILOL 12.5 MG TABLET. PO SCH ×2 (09:56→17:43)
[2019-09-13] MEDS: amLODIPine BESYLATE 5 MG TABLET PO SCH (09:56)
[2019-09-13] MEDS: tiZANidine 4 MG TABLET. PO SCH ×4 (09:56→23:31)
[2019-09-13] MEDS: NYSTATIN TOPICAL POWDER 15GM BOTTLE. TP SCH ×2 (09:57→23:34)
[2019-09-13] MEDS: LIDOCAINE (700MG/PATCH) PATCH. TP SCH (09:57)
[2019-09-13] MEDS: IV NORMAL SALINE 1000ML BAG 1,000 ML IV SCH ×3 (10:15→23:35)
--- NOTE | 2019-09-13 10:37 | PDOC ---
PROGRESS NOTES Chief Complaint Chief Complaint Acute encephalopathy, etiology undetermined which may be central etiology versus uremia (metabolic) Suspected UTI Hypokalemia Acute renal failure, vasomotor etiology most likely High anion gap metabolic acidosis History of diabetes mellitus type 2 Essential hypertension History of CVA Plan results of CT of the head reviewed please see below Renal ultrasound reviewed normal findings. Resume home medications Continue with dialysis as per fitness sales consultant Reassess in the a.m. Further recommendations based on the clinical course DVT prophylaxis with SCDs CT head: CT of the head without contrast HISTORY: Encephalopathy Comparison study: CT of the head without contrast July 30, 2019 Discussion: CT scan of the brain was done without contrast. There is no intracranial hemorrhage. Ventricles are unchanged in size. Similar-appearing right parasagittal frontal and parietal lobe encephalomalacia. No evidence of subacute territorial infarct is identified. No evidence of new chronic infarct is seen.. There is no shift of the midline. No acute midline shift is identified. No acute osseous changes are seen. IMPRESSION: Stable exam without evidence of acute intracranial abnormality History of Present Illness History of Present Illness 09/08: No acute events reported overnight, case discussed with nursing staff patient in no acute distress no complaints during my visit, patient still non verbal results of her CT of the head reviewed and found negative, labs noted 09/09: Patient continues to be pretty much the same seems to be a little bit more responsive today compared to yesterday she responds to her name no acute events reported overnight tolerating hemodialysis well this may well be metabolic encephalopathy hopefully with correction of her electrolytes she may be coming out of her stupor. Case management requesting COVID testing first and under investigation for placement 09/10: No acute events reported overnight, case discussed with nursing staff patient in no acute distress no complaints during my visit her altered mental status seems to be related to uremia, will continue to follow monitor daily basis electrolyte disturbance noted which can be corrected during dialysis 09/11: No acute events reported overnight, case discussed with nursing staff patient in no acute distress no complaints during my visit, patient seems to be back at baseline encephalopathy most likely due to uremia, will continue with dialysis as per fitness sales consultant. Electrolyte disturbance noted 09/12: Patient much more awake today and seems to be interacting more and more, laboratory data has been reviewed. Plan of care explained in detail reassurance has been provided Vitals Vitals Vital Signs Date Time Temp Pulse Resp B/P (MAP) Pulse Ox O2 Delivery O2 Flow Rate FiO2 09/13/19 09:56 65 180/71 09/13/19 07:45 98.1 17 95 Room Air 98.1 Physical Exam Physical Exam GEN.: No apparent distress. Alert difficult to assess if she is oriented but responds to her name HEENT: Head is normocephalic, atraumatic NECK: Supple. LUNGS: Clear to auscultation. HEART: RRR, S1, S2 present. Peripheral pulses intact ABDOMEN: Soft, nontender. Positive bowel sounds. EXTREMITIES: Without any cyanosis. NEUROLOGIC: Cranial nerves II to XII seem to be grossly intact patient is moving all extremities PSYCHIATRIC: Unable to evaluate SKIN: No ulcerations General: Alert Lungs: Clear Labs LABS Laboratory Tests Test 09/12/19 13:35 09/12/19 16:10 09/12/19 20:51 09/13/19 07:08 Glucose (Fingerstick) 89 mg/dL (70-99) 99 mg/dL (70-99) 126 mg/dL (70-99) 132 mg/dL (70-99) Test 09/13/19 08:00 Sodium Level 141 mmol/L (136-145) Potassium Level 3.0 mmol/L (3.5-5.1) Chloride Level 103 mmol/L (98-107) Carbon Dioxide Level 25 mmol/L (21-32) Anion Gap 13 (6-14) Blood Urea Nitrogen 15 mg/dL (7-20) Creatinine 2.8 mg/dL (0.6-1.0) Estimated GFR (Cockcroft-Gault) 18.3 Glucose Level 131 mg/dL (70-99) Calcium Level 7.6 mg/dL (8.5-10.1) Phosphorus Level 1.8 mg/dL (2.6-4.7) Magnesium Level 1.3 mg/dL (1.8-2.4) Albumin 2.5 g/dL (3.4-5.0) Review of Systems Review of Systems Pertinent as per HPI otherwise 10 point review of system is negative Assessment and Plan Assessmemt and Plan Problems Medical Problems: (1) Acute kidney failure Status: Acute (2) Hypotension Status: Acute (3) Severe dehydration Status: Acute (4) UTI (urinary tract infection) Status: Acute Comment Review of Relevant I have reviewed the following items dunia (where applicable) has been applied. Labs Laboratory Tests Test 09/11/19 10:51 09/11/19 12:15 09/11/19 17:34 09/11/19 20:56 Glucose (Fingerstick) 125 mg/dL (70-99) 140 mg/dL (70-99) 102 mg/dL (70-99) Potassium Level 2.5 mmol/L (3.5-5.1) Test 09/12/19 04:30 09/12/19 07:01 09/12/19 13:35 09/12/19 16:10 Sodium Level 140 mmol/L (136-145) Potassium Level 2.5 mmol/L (3.5-5.1) Chloride Level 103 mmol/L (98-107) Carbon Dioxide Level 28 mmol/L (21-32) Anion Gap 9 (6-14) Blood Urea Nitrogen 26 mg/dL (7-20) Creatinine 4.1 mg/dL (0.6-1.0) Estimated GFR (Cockcroft-Gault) 11.8 Glucose Level 124 mg/dL (70-99) Calcium Level 7.0 mg/dL (8.5-10.1) Phosphorus Level 3.1 mg/dL (2.6-4.7) Albumin 2.3 g/dL (3.4-5.0) Glucose (Fingerstick) 119 mg/dL (70-99) 89 mg/dL (70-99) 99 mg/dL (70-99) Test 09/12/19 20:51 09/13/19 07:08 09/13/19 08:00 Glucose (Fingerstick) 126 mg/dL (70-99) 132 mg/dL (70-99) Sodium Level 141 mmol/L (136-145) Potassium Level 3.0 mmol/L (3.5-5.1) Chloride Level 103 mmol/L (98-107) Carbon Dioxide Level 25 mmol/L (21-32) Anion Gap 13 (6-14) Blood Urea Nitrogen 15 mg/dL (7-20) Creatinine 2.8 mg/dL (0.6-1.0) Estimated GFR (Cockcroft-Gault) 18.3 Glucose Level 131 mg/dL (70-99) Calcium Level 7.6 mg/dL (8.5-10.1) Phosphorus Level 1.8 mg/dL (2.6-4.7) Magnesium Level 1.3 mg/dL (1.8-2.4) Albumin 2.5 g/dL (3.4-5.0) Laboratory Tests Test 09/12/19 13:35 09/12/19 16:10 09/12/19 20:51 09/13/19 07:08 Glucose (Fingerstick) 89 mg/dL (70-99) 99 mg/dL (70-99) 126 mg/dL (70-99) 132 mg/dL (70-99) Test 09/13/19 08:00 Sodium Level 141 mmol/L (136-145) Potassium Level 3.0 mmol/L (3.5-5.1) Chloride Level 103 mmol/L (98-107) Carbon Dioxide Level 25 mmol/L (21-32) Anion Gap 13 (6-14) Blood Urea Nitrogen 15 mg/dL (7-20) Creatinine 2.8 mg/dL (0.6-1.0) Estimated GFR (Cockcroft-Gault) 18.3 Glucose Level 131 mg/dL (70-99) Calcium Level 7.6 mg/dL (8.5-10.1) Phosphorus Level 1.8 mg/dL (2.6-4.7) Magnesium Level 1.3 mg/dL (1.8-2.4) Albumin 2.5 g/dL (3.4-5.0) Microbiology 09/09/19 Blood Culture - Preliminary, Resulted NO GROWTH AFTER 3 DAYS 09/08/19 Urine Culture - Final, Complete 09/08/19 Antimicrobic Susceptibility - Final, Complete Medications Current Medications Sodium Chloride 1,000 ml @ 1,000 mls/hr Q1H IV Last administered on 09/07/19at 00:40; Start 09/07/19 at 23:30; Stop 09/08/19 at 00:29; Status DC Ceftriaxone Sodium (Rocephin) 1 gm 1X ONCE IVP Last administered on 09/08/19at 02:50; Start 09/08/19 at 02:45; Stop 09/08/19 at 02:46; Status DC Magnesium Sulfate 50 ml @ 25 mls/hr 1X ONCE IV Last administered on 09/08/19at 02:51; Start 09/08/19 at 02:45; Stop 09/08/19 at 04:44; Status DC Ondansetron HCl (Zofran) 4 mg PRN Q8HRS PRN IV NAUSEA/VOMITING; Start 09/08/19 at 02:30; Stop 09/09/19 at 02:29; Status DC Sodium Chloride 1,000 ml @ 150 mls/hr Q6H40M IV Last administered on 09/08/19at 08:42; Start 09/08/19 at 02:02; Stop 09/09/19 at 02:01; Status DC Labetalol HCl (Normodyne Iv Push) 10 mg 1X ONCE IVP ; Start 09/08/19 at 03:00; Stop 09/08/19 at 03:02; Status DC Sodium Chloride 1,000 ml @ 1,000 mls/hr 1X ONCE IV Last administered on 09/08/19at 10:45; Start 09/08/19 at 10:45; Stop 09/08/19 at 11:44; Status DC Sodium Bicarbonate 100 meq/Dextrose 1,100 ml @ 75 mls/hr [id number] IV Last administered on 09/11/19at 01:43; Start 09/08/19 at 15:30; Stop 09/11/19 at 18:03; Status DC Calcium Chloride 2000 mg/Sodium Chloride 120 ml @ 240 mls/hr 1X ONCE IV ; Start 09/08/19 at 15:00; Stop 09/08/19 at 15:39; Status DC Calcium Gluconate 2000 mg/Sodium Chloride 120 ml @ 220 mls/hr 1X ONCE IV Last administered on 09/08/19at 15:58; Start 09/08/19 at 16:00; Stop 09/08/19 at 16:32; Status DC Nystatin (Nystop) 1 jennifer BID TP Last administered on 09/13/19at 09:57; Start 09/08/19 at 21:00 Ceftriaxone Sodium (Rocephin) 1 gm Q24H IVP Last administered on 09/09/19at 06:31; Start 09/09/19 at 06:00; Stop 09/09/19 at 23:06; Status DC Amlodipine Besylate (Norvasc) 5 mg DAILY PO Last administered on 09/13/19at 09:56; Start 09/09/19 at 09:00 Aspirin (Aspirin Chewable) 81 mg DAILY PO Last administered on 09/13/19 09:55; Start 09/09/19 at 09:00 Atorvastatin Calcium (Lipitor) 40 mg QHS PO Last administered on 09/12/19 21:37; Start 09/09/19 at 21:00 Hydralazine HCl (Apresoline) 25 mg Q6HRS PO Last administered on 09/13/19 07:10; Start 09/09/19 at 12:00 Lidocaine (Lidoderm) 1 patch DAILY TP Last administered on 09/13/19 09:57; Start 09/09/19 at 09:00 Pantoprazole Sodium (Protonix) 40 mg DAILYAC PO Last administered on 09/13/19 09:55; Start 09/09/19 at 08:00 Tizanidine HCl (Zanaflex) 8 mg QID PO Last administered on 09/13/19 09:56; Start 09/09/19 at 09:00 Carvedilol (Coreg) 25 mg BIDWMEALS PO Last administered on 09/13/19 09:56; Start 09/09/19 at 08:00 Citalopram Hydrobromide (CeleXA) 20 mg DAILY PO Last administered on 09/13/19 09:55; Start 09/09/19 at 09:00 Gabapentin (Neurontin) 800 mg DAILY PO Last administered on 09/13/19 09:55; Start 09/09/19 at 09:00 Hydrocortisone (Cortaid) 1 jennifer PRN Q6HRS PRN TP RASH; Start 09/09/19 at 08:00 Non-Formulary Medication (Melatonin ) 1 tab QHS PO ; Start 09/09/19 at 21:00; Status UNV Miscellaneous (Lidoderm Patch Removal) 1 ea QHS MC Last administered on 09/10/19 21:00; Start 09/09/19 at 21:00 Ceftriaxone Sodium (Rocephin) 1 gm Q24H IVP ; Start 09/09/19 at 09:15; Status UNV Sodium Chloride 1,000 ml @ 1,000 mls/hr Q1H PRN IV hypotension; Start 09/09/19 at 10:00; Stop 09/09/19 at 15:59; Status DC Albumin Human 200 ml @ 200 mls/hr 1X PRN PRN IV Hypotension; Start 09/09/19 at 10:00; Stop 09/09/19 at 15:59; Status DC Sodium Chloride (Normal Saline Flush) 10 ml 1X PRN PRN IV AP catheter pack; Start 09/09/19 at 10:00; Stop 09/10/19 at 09:59; Status DC Sodium Chloride (Normal Saline Flush) 10 ml 1X PRN PRN IV DINING ROOM MANAGER catheter pack; Start 09/09/19 at 10:00; Stop 09/10/19 at 09:59; Status DC Sodium Chloride 1,000 ml @ 400 mls/hr Q2H30M PRN IV PATENCY; Start 09/09/19 at 10:00; Stop 09/09/19 at 21:59; Status DC Info (PHARMACY MONITORING -- do not chart) 1 each PRN DAILY PRN MC SEE COMMENTS; Start 09/09/19 at 10:00; Stop 09/09/19 at 10:07; Status DC Info (PHARMACY MONITORING -- do not chart) 1 each PRN DAILY PRN MC SEE COMMENTS; Start 09/09/19 at 10:00; Status Cancel Lidocaine HCl (Buffered Lidocaine 1%) 3 ml STK-MED ONCE .ROUTE ; Start 09/09/19 at 12:26; Stop 09/09/19 at 12:27; Status DC Lidocaine HCl (Buffered Lidocaine 1%) 4 ml 1X ONCE INJ Last administered on 09/09/19at 13:07; Start 09/09/19 at 13:15; Stop 09/09/19 at 13:16; Status DC Acetaminophen (Tylenol Supp) 325 mg PRN Q6HRS PRN FL MILD PAIN / TEMP > 100.3'F Last administered on 09/10/19at 00:12; Start 09/09/19 at 23:15 Piperacillin Sod/ Tazobactam Sod 2.25 gm/Sodium Chloride 50 ml @ 100 mls/hr Q8HRS IV Last administered on 09/13/19at 05:59; Start 09/10/19 at 00:00 Sodium Chloride 1,000 ml @ 1,000 mls/hr Q1H PRN IV hypotension; Start 09/10/19 at 07:26; Stop 09/10/19 at 13:25; Status DC Albumin Human 200 ml @ 200 mls/hr 1X PRN PRN IV Hypotension; Start 09/10/19 at 07:30; Stop 09/10/19 at 13:29; Status DC Sodium Chloride (Normal Saline Flush) 10 ml 1X PRN PRN IV AP catheter pack; Start 09/10/19 at 07:30; Stop 09/11/19 at 07:29; Status DC Sodium Chloride (Normal Saline Flush) 10 ml 1X PRN PRN IV DINING ROOM MANAGER catheter pack; Start 09/10/19 at 07:30; Stop 09/11/19 at 07:29; Status DC Sodium Chloride 1,000 ml @ 400 mls/hr Q2H30M PRN IV PATENCY; Start 09/10/19 at 07:26; Stop 09/10/19 at 19:25; Status DC Info (PHARMACY MONITORING -- do not chart) 1 each PRN DAILY PRN MC SEE COMMENTS; Start 09/10/19 at 07:30 Potassium Chloride/Water 100 ml @ 50 mls/hr Q2HR IV ; Start 09/10/19 at 08:00; Stop 09/10/19 at 08:45; Status DC Potassium Chloride/Water 100 ml @ 100 mls/hr Q1H IV Last administered on 09/11/19at 13:00; Start 09/11/19 at 07:00; Stop 09/11/19 at 10:59; Status DC Potassium Phosphate 13.6 mmol/Sodium Chloride 254.5333 ml @ 127.... Q2H IV Last administered on 09/11/19at 15:14; Start 09/11/19 at 12:00; Stop 09/11/19 at 15:59; Status DC Sodium Chloride 1,000 ml @ 75 mls/hr [id number] IV Last administered on 09/12/19at 21:38; Start 09/11/19 at 18:15 Potassium Chloride (Klor-Con) 40 meq 1X ONCE PO Last administered on 09/12/19at 06:25; Start 09/12/19 at 06:30; Stop 09/12/19 at 06:31; Status DC Potassium Chloride/Water 100 ml @ 100 mls/hr Q1H IV Last administered on 09/12/19at 17:22; Start 09/12/19 at 08:00; Stop 09/12/19 at 11:59; Status DC Sodium Chloride 1,000 ml @ 1,000 mls/hr Q1H PRN IV hypotension; Start 09/12/19 at 10:00; Stop 09/12/19 at 18:00; Status DC Sodium Chloride 1,000 ml @ 400 mls/hr Q2H30M PRN IV PATENCY; Start 09/12/19 at 10:00; Stop 09/12/19 at 21:59; Status DC Info (PHARMACY MONITORING -- do not chart) 1 each PRN DAILY PRN MC SEE COMMENTS; Start 09/12/19 at 11:30; Status UNV Info (PHARMACY MONITORING -- do not chart) 1 each PRN DAILY PRN MC SEE COMMENTS; Start 09/12/19 at 11:30; Status UNV Acetaminophen/ Butalbital/ Caffeine (Fioricet) 1 tab PRN Q6HRS PRN PO MIGRAINE HEADACHE Last administered on 09/13/19at 03:40; Start 09/13/19 at 02:45 Active Scripts Active Hydralazine Hcl 25 Mg Tablet 25 Mg PO Q6HRS 60 Days Atorvastatin Calcium 40 Mg Tablet 40 Mg PO QHS Reported Zofran (Ondansetron Hcl) 4 Mg Tablet 1 Tab PO PRN Q6HRS PRN Topiramate 25 Mg Tablet 3 Tab PO BID 30 Days Tizanidine Hcl 4 Mg Tablet 2 Tab PO QID Gabapentin 800 Mg Tablet 800 Mg PO TID Melatonin 1 Mg Tablet 1 Tab PO QHS 30 Days Loperamide (Loperamide Hcl) 2 Mg Tablet 2 Mg PO PRN Q4HRS Lidocaine PATCH (Lidocaine) 1 Each Adh..patch 1 Each TP DAILY REMOVE AFTER 12 HOURS Hydrocortisone 453.6 Gm Cream..g. 1 Jennifer TP PRN Q6HRS D3-50 (Cholecalciferol (Vitamin D3)) 50,000 Unit Capsule 1,000 Unit PO DAILY Carvedilol 25 Mg Tablet 25 Mg PO BIDWMEALS Aspirin 81 Mg Tab.chew 1 Tab PO DAILY Amlodipine Besylate 5 Mg Tablet 5 Mg PO DAILY Acetaminophen 500 Mg Tablet 1,000 Mg PO PRN Q4HRS PRN Escitalopram Oxalate 10 Mg Tablet 10 Mg PO DAILY Metformin Hcl Er (Metformin Hcl) 750 Mg Tab.er.24h 1 Tab PO BID 30 Days Protonix (Pantoprazole Sodium) 40 Mg Tablet.dr 40 Mg PO DAILYAC Zestril (Lisinopril) 40 Mg Tablet 40 Mg PO DAILY Vitals/I & O Vital Sign - Last 24 Hours 09/12/19 09/12/19 09/12/19 09/12/19 14:49 14:50 15:20 17:23 Temp 98.2 98.2 Pulse 69 69 69 69 Resp 18 B/P (MAP) 178/88 178/88 178/88 (118) 178/88 Pulse Ox 92 O2 Delivery Room Air 09/12/19 09/12/19 09/12/19 09/12/19 17:23 19:00 20:00 23:00 Temp 99.4 98.4 99.4 98.4 Pulse 69 62 61 Resp 18 18 B/P (MAP) 178/88 124/55 (78) 138/68 (91) Pulse Ox 96 97 O2 Delivery Room Air 09/13/19 09/13/19 09/13/19 09/13/19 01:24 03:00 07:10 07:45 Temp 97.8 98.1 97.8 98.1 Pulse 61 63 63 65 Resp 18 17 B/P (MAP) 138/68 159/78 (105) 159/78 180/71 (107) Pulse Ox 95 95 O2 Delivery Room Air 09/13/19 09/13/19 09:56 09:56 Pulse 65 65 B/P (MAP) 180/71 180/71 Intake and Output 09/12/19 09/12/19 09/13/19 15:00 23:00 07:00 Output Total 100 ml 175 ml Balance -100 ml -175 ml JAYNE MILLAN MD Sep 13, 2019 10:37
[2019-09-13 11:09] VITALS: BP 138/70
--- NOTE | 2019-09-13 11:52 | PDOC ---
Renal-Progress Notes Subjective Notes Notes NO NEW COMPLAINTS History of Present Illness Hx of present illness STILL HAS SOME CONFUSION Vitals Vitals Vital Signs Date Time Temp Pulse Resp B/P (MAP) Pulse Ox O2 Delivery O2 Flow Rate FiO2 09/13/19 11:09 98.1 55 18 138/70 (92) 93 Room Air 98.1 Weight Weight [ ] I.O. Intake and Output Intake and Output 09/13/19 07:00 Output Total 275 ml Balance -275 ml Output Urine Total 275 ml # Bowel Movements 1 Labs Labs Laboratory Tests Test 09/12/19 13:35 09/12/19 16:10 09/12/19 20:51 09/13/19 07:08 Glucose (Fingerstick) 89 mg/dL (70-99) 99 mg/dL (70-99) 126 mg/dL (70-99) 132 mg/dL (70-99) Test 09/13/19 08:00 09/13/19 11:29 Sodium Level 141 mmol/L (136-145) Potassium Level 3.0 mmol/L (3.5-5.1) Chloride Level 103 mmol/L (98-107) Carbon Dioxide Level 25 mmol/L (21-32) Anion Gap 13 (6-14) Blood Urea Nitrogen 15 mg/dL (7-20) Creatinine 2.8 mg/dL (0.6-1.0) Estimated GFR (Cockcroft-Gault) 18.3 Glucose Level 131 mg/dL (70-99) Calcium Level 7.6 mg/dL (8.5-10.1) Phosphorus Level 1.8 mg/dL (2.6-4.7) Magnesium Level 1.3 mg/dL (1.8-2.4) Albumin 2.5 g/dL (3.4-5.0) Glucose (Fingerstick) 138 mg/dL (70-99) Micro Micro Microbiology 09/09/19 Blood Culture - Preliminary, Resulted NO GROWTH AFTER 3 DAYS 09/08/19 Urine Culture - Final, Complete 09/08/19 Antimicrobic Susceptibility - Final, Complete Review of Systems Constitutional: yes: alert Ears/Nose/Throat: Yes: no symptom reported Eyes: Yes: no symptom reported Pulmonary: Yes no symptom reported Gastrointestional: Yes: constipation Musculoskeletal: Yes: muscle stiffness Skin: Yes no symptom reported Psychiatric/Neurological: Yes: no symptom reported Physical Exam General Appearance: no apparent distress Skin: warm Respiratory: decreased breath sounds Heart: S1S2 Abdomen: soft, bowel sounds present Genitourinary: bladder flat Extremities: pulses present Neurology: alert Musculoskeletal: Osteoarthritis, Other Assessment Assessment IMP HYPOKALEMIA LESLIE-NO CLEARANCE-NO CKD ATN-UO IMPROVING MET ACIDOSIS-BETTER HYPOKALEMIA LEUCOCYTOSIS UTI HX CVA DM OBESITY MET ENCEPHALOPATHY PLAN ANTIBIOTICS LOOK FOR RENAL RECOVERY TENTATIVE HD TOMORROW REPLACE K NEEDED CONT SALINE ZHANG MCDOWELL MD Sep 13, 2019 11:52
[2019-09-13] MEDS ORDERED: POTASSIUM CHLORIDE 20 MEQ TABLET.ER. PO ONE (12:00)
[2019-09-13] MEDS ORDERED: MAGNESIUM SULFATE 2GM 50 ML IV ONE (12:00)
[2019-09-13] MEDS ORDERED: SODIUM PHOSPHATE 15 MMOL in IV NORMAL SALINE 100ML 100 ML IV ONE (13:00)
[2019-09-13 14:39] VITALS: BP 95/55
[2019-09-13 19:00] VITALS: BP 161/68
[2019-09-13] MEDS: PATCH REMOVAL. MC SCH (21:00)
[2019-09-13 23:00] VITALS: BP 111/63
[2019-09-13] MEDS: ATORVASTATIN CALCIUM 40 MG TABLET. PO SCH (23:31)
[2019-09-14 03:00] VITALS: BP 137/58
[2019-09-14] MEDS: IV NORMAL SALINE 1000ML BAG 1,000 ML IV SCH (05:44)
[2019-09-14] MEDS: hydrALAZINE 25 MG TABLET PO SCH ×3 (05:45→17:04)
[2019-09-14] MEDS: PIPERACILLIN/TAZOBACTAM 2.25 GM in IV NORMAL SALINE 50ML 50 ML IV SCH (05:45)
[2019-09-14 07:00] VITALS: BP 155/60
[2019-09-14 07:33] LABS: ALBUMIN 2.4 g/dL (3.4-5.0); CALCIUM 7.3 mg/dL (8.5-10.1); CREATININE 3.1 mg/dL (0.6-1.0); GFR 16.2; PHOSPHORUS 2.9 mg/dL (2.6-4.7)
[2019-09-14 07:43] LABS: POTASSIUM 2.8 mmol/L (3.5-5.1)
[2019-09-14] MEDS: tiZANidine 4 MG TABLET. PO SCH ×4 (09:00→21:15)
[2019-09-14] MEDS ORDERED: MAGNESIUM SULFATE 2GM 50 ML IV ONE (09:00)
[2019-09-14] MEDS: LIDOCAINE (700MG/PATCH) PATCH. TP SCH (09:29)
[2019-09-14] MEDS: NYSTATIN TOPICAL POWDER 15GM BOTTLE. TP SCH ×2 (09:29→21:00)
[2019-09-14] MEDS: POTASSIUM CHLORIDE 10MEQ 100 ML IV SCH ×6 (09:29→23:20)
[2019-09-14] MEDS ORDERED: IV NORMAL SALINE 1000ML BAG 1,000 ML IV PRN ×2 (10:04)
[2019-09-14] MEDS ORDERED: DIALYSIS PATIENT. MC PRN ×2 (10:15)
[2019-09-14] MEDS ORDERED: ALBUMIN HUMAN 25% 200 ML IV PRN (10:15)
[2019-09-14 10:46] VITALS: BP 159/60
--- NOTE | 2019-09-14 11:30 | PDOC ---
Renal-Progress Notes Subjective Notes Notes NO NEW COMPLAINTS History of Present Illness Hx of present illness STABLE Vitals Vitals Vital Signs Date Time Temp Pulse Resp B/P (MAP) Pulse Ox O2 Delivery O2 Flow Rate FiO2 09/14/19 10:46 97.8 58 19 159/60 (93) 95 Room Air 97.8 Weight Weight [ ] I.O. Intake and Output Intake and Output 09/14/19 07:00 Intake Total 60 ml Output Total 500 ml Balance -440 ml Intake Oral 60 ml Output Urine Total 500 ml # Bowel Movements 2 Labs Labs Laboratory Tests Test 09/13/19 16:13 09/13/19 21:20 09/14/19 05:40 Glucose (Fingerstick) 109 mg/dL (70-99) 114 mg/dL (70-99) Sodium Level 143 mmol/L (136-145) Potassium Level 2.8 mmol/L (3.5-5.1) Chloride Level 105 mmol/L (98-107) Carbon Dioxide Level 26 mmol/L (21-32) Anion Gap 12 (6-14) Blood Urea Nitrogen 18 mg/dL (7-20) Creatinine 3.1 mg/dL (0.6-1.0) Estimated GFR (Cockcroft-Gault) 16.2 Glucose Level 99 mg/dL (70-99) Calcium Level 7.3 mg/dL (8.5-10.1) Phosphorus Level 2.9 mg/dL (2.6-4.7) Magnesium Level 1.6 mg/dL (1.8-2.4) Albumin 2.4 g/dL (3.4-5.0) Micro Micro Microbiology 09/09/19 Blood Culture - Preliminary, Resulted NO GROWTH AFTER 4 DAYS 09/08/19 Urine Culture - Final, Complete 09/08/19 Antimicrobic Susceptibility - Final, Complete Review of Systems Constitutional: yes: alert Ears/Nose/Throat: Yes: no symptom reported Eyes: Yes: no symptom reported Pulmonary: Yes no symptom reported Gastrointestional: Yes: constipation Musculoskeletal: Yes: muscle stiffness Skin: Yes no symptom reported Psychiatric/Neurological: Yes: no symptom reported Physical Exam General Appearance: no apparent distress Skin: warm Respiratory: decreased breath sounds Heart: S1S2 Abdomen: soft, bowel sounds present Genitourinary: bladder flat Extremities: pulses present Neurology: alert Musculoskeletal: Osteoarthritis, Other Assessment Assessment IMP HYPOKALEMIA LESLIE-NO CLEARANCE-NO CKD ATN-UO IMPROVING MET ACIDOSIS-BETTER HYPOKALEMIA LEUCOCYTOSIS UTI HX CVA DM OBESITY MET ENCEPHALOPATHY PLAN ANTIBIOTICS LOOK FOR RENAL RECOVERY HD TODAY MINIMAL UF REPLACE K NEEDED CONT SALINE WILL ASK IR TO CONVERT TO TUNNELED HD CATHETER ANTICIPATE SHE WILL NEED HD FOR A WHILE LTAC PENDING D/W ATTENDING ZHANG MCDOWELL MD Sep 14, 2019 11:30
[2019-09-14] MEDS: amLODIPine BESYLATE 5 MG TABLET PO SCH (13:34)
--- NOTE | 2019-09-14 13:42 | PDOC ---
PROGRESS NOTES Chief Complaint Chief Complaint Acute encephalopathy, etiology undetermined which may be central etiology versus uremia (metabolic) Suspected UTI Hypokalemia Acute renal failure, vasomotor etiology most likely High anion gap metabolic acidosis History of diabetes mellitus type 2 Essential hypertension History of CVA Plan results of CT of the head reviewed please see below Renal ultrasound reviewed normal findings. Resume home medications Continue with dialysis as per retail sales consultant Reassess in the a.m. Further recommendations based on the clinical course DVT prophylaxis with SCDs CT head: CT of the head without contrast HISTORY: Encephalopathy Comparison study: CT of the head without contrast July 30, 2019 Discussion: CT scan of the brain was done without contrast. There is no intracranial hemorrhage. Ventricles are unchanged in size. Similar-appearing right parasagittal frontal and parietal lobe encephalomalacia. No evidence of subacute territorial infarct is identified. No evidence of new chronic infarct is seen.. There is no shift of the midline. No acute midline shift is identified. No acute osseous changes are seen. IMPRESSION: Stable exam without evidence of acute intracranial abnormality History of Present Illness History of Present Illness 09/08: No acute events reported overnight, case discussed with nursing staff patient in no acute distress no complaints during my visit, patient still non verbal results of her CT of the head reviewed and found negative, labs noted 09/09: Patient continues to be pretty much the same seems to be a little bit more responsive today compared to yesterday she responds to her name no acute events reported overnight tolerating hemodialysis well this may well be metabolic encephalopathy hopefully with correction of her electrolytes she may be coming out of her stupor. Case management requesting COVID testing first and under investigation for placement 09/10: No acute events reported overnight, case discussed with nursing staff patient in no acute distress no complaints during my visit her altered mental status seems to be related to uremia, will continue to follow monitor daily basis electrolyte disturbance noted which can be corrected during dialysis 09/11: No acute events reported overnight, case discussed with nursing staff patient in no acute distress no complaints during my visit, patient seems to be back at baseline encephalopathy most likely due to uremia, will continue with dialysis as per retail sales consultant. Electrolyte disturbance noted 09/12: Patient much more awake today and seems to be interacting more and more, laboratory data has been reviewed. Plan of care explained in detail reassurance has been provided 09/13: Patient's numbers are improving nevertheless her urinary output is still marginal. Case discussed with Dr. Coles we will start the process of arranging for outpatient dialysis Covid test will be requested Vitals Vitals Vital Signs Date Time Temp Pulse Resp B/P (MAP) Pulse Ox O2 Delivery O2 Flow Rate FiO2 09/14/19 13:36 61 190/93 09/14/19 10:46 97.8 19 95 Room Air 97.8 Physical Exam Physical Exam GEN.: No apparent distress. Alert difficult to assess if she is oriented but responds to her name HEENT: Head is normocephalic, atraumatic NECK: Supple. LUNGS: Clear to auscultation. HEART: RRR, S1, S2 present. Peripheral pulses intact ABDOMEN: Soft, nontender. Positive bowel sounds. EXTREMITIES: Without any cyanosis. NEUROLOGIC: Cranial nerves II to XII seem to be grossly intact patient is moving all extremities PSYCHIATRIC: Unable to evaluate SKIN: No ulcerations General: Alert Lungs: Clear Labs LABS Laboratory Tests Test 09/13/19 16:13 09/13/19 21:20 09/14/19 05:40 09/14/19 11:42 Glucose (Fingerstick) 109 mg/dL (70-99) 114 mg/dL (70-99) 105 mg/dL (70-99) Sodium Level 143 mmol/L (136-145) Potassium Level 2.8 mmol/L (3.5-5.1) Chloride Level 105 mmol/L (98-107) Carbon Dioxide Level 26 mmol/L (21-32) Anion Gap 12 (6-14) Blood Urea Nitrogen 18 mg/dL (7-20) Creatinine 3.1 mg/dL (0.6-1.0) Estimated GFR (Cockcroft-Gault) 16.2 Glucose Level 99 mg/dL (70-99) Calcium Level 7.3 mg/dL (8.5-10.1) Phosphorus Level 2.9 mg/dL (2.6-4.7) Magnesium Level 1.6 mg/dL (1.8-2.4) Albumin 2.4 g/dL (3.4-5.0) Assessment and Plan Assessmemt and Plan Problems Medical Problems: (1) Acute kidney failure Status: Acute (2) Hypotension Status: Acute (3) Severe dehydration Status: Acute (4) UTI (urinary tract infection) Status: Acute Comment Review of Relevant I have reviewed the following items dunia (where applicable) has been applied. Labs Laboratory Tests Test 09/12/19 16:10 09/12/19 20:51 09/13/19 07:08 09/13/19 08:00 Glucose (Fingerstick) 99 mg/dL (70-99) 126 mg/dL (70-99) 132 mg/dL (70-99) Sodium Level 141 mmol/L (136-145) Potassium Level 3.0 mmol/L (3.5-5.1) Chloride Level 103 mmol/L (98-107) Carbon Dioxide Level 25 mmol/L (21-32) Anion Gap 13 (6-14) Blood Urea Nitrogen 15 mg/dL (7-20) Creatinine 2.8 mg/dL (0.6-1.0) Estimated GFR (Cockcroft-Gault) 18.3 Glucose Level 131 mg/dL (70-99) Calcium Level 7.6 mg/dL (8.5-10.1) Phosphorus Level 1.8 mg/dL (2.6-4.7) Magnesium Level 1.3 mg/dL (1.8-2.4) Albumin 2.5 g/dL (3.4-5.0) Test 09/13/19 11:29 09/13/19 16:13 09/13/19 21:20 09/14/19 05:40 Glucose (Fingerstick) 138 mg/dL (70-99) 109 mg/dL (70-99) 114 mg/dL (70-99) Sodium Level 143 mmol/L (136-145) Potassium Level 2.8 mmol/L (3.5-5.1) Chloride Level 105 mmol/L (98-107) Carbon Dioxide Level 26 mmol/L (21-32) Anion Gap 12 (6-14) Blood Urea Nitrogen 18 mg/dL (7-20) Creatinine 3.1 mg/dL (0.6-1.0) Estimated GFR (Cockcroft-Gault) 16.2 Glucose Level 99 mg/dL (70-99) Calcium Level 7.3 mg/dL (8.5-10.1) Phosphorus Level 2.9 mg/dL (2.6-4.7) Magnesium Level 1.6 mg/dL (1.8-2.4) Albumin 2.4 g/dL (3.4-5.0) Test 09/14/19 11:42 Glucose (Fingerstick) 105 mg/dL (70-99) Laboratory Tests Test 09/13/19 16:13 09/13/19 21:20 09/14/19 05:40 09/14/19 11:42 Glucose (Fingerstick) 109 mg/dL (70-99) 114 mg/dL (70-99) 105 mg/dL (70-99) Sodium Level 143 mmol/L (136-145) Potassium Level 2.8 mmol/L (3.5-5.1) Chloride Level 105 mmol/L (98-107) Carbon Dioxide Level 26 mmol/L (21-32) Anion Gap 12 (6-14) Blood Urea Nitrogen 18 mg/dL (7-20) Creatinine 3.1 mg/dL (0.6-1.0) Estimated GFR (Cockcroft-Gault) 16.2 Glucose Level 99 mg/dL (70-99) Calcium Level 7.3 mg/dL (8.5-10.1) Phosphorus Level 2.9 mg/dL (2.6-4.7) Magnesium Level 1.6 mg/dL (1.8-2.4) Albumin 2.4 g/dL (3.4-5.0) Microbiology 09/09/19 Blood Culture - Preliminary, Resulted NO GROWTH AFTER 4 DAYS 09/08/19 Urine Culture - Final, Complete 09/08/19 Antimicrobic Susceptibility - Final, Complete Medications Current Medications Sodium Chloride 1,000 ml @ 1,000 mls/hr Q1H IV Last administered on 09/07/19at 00:40; Start 09/07/19 at 23:30; Stop 09/08/19 at 00:29; Status DC Ceftriaxone Sodium (Rocephin) 1 gm 1X ONCE IVP Last administered on 09/08/19at 02:50; Start 09/08/19 at 02:45; Stop 09/08/19 at 02:46; Status DC Magnesium Sulfate 50 ml @ 25 mls/hr 1X ONCE IV Last administered on 09/08/19at 02:51; Start 09/08/19 at 02:45; Stop 09/08/19 at 04:44; Status DC Ondansetron HCl (Zofran) 4 mg PRN Q8HRS PRN IV NAUSEA/VOMITING; Start 09/08/19 at 02:30; Stop 09/09/19 at 02:29; Status DC Sodium Chloride 1,000 ml @ 150 mls/hr Q6H40M IV Last administered on 09/08/19at 08:42; Start 09/08/19 at 02:02; Stop 09/09/19 at 02:01; Status DC Labetalol HCl (Normodyne Iv Push) 10 mg 1X ONCE IVP ; Start 09/08/19 at 03:00; Stop 09/08/19 at 03:02; Status DC Sodium Chloride 1,000 ml @ 1,000 mls/hr 1X ONCE IV Last administered on 09/08/19at 10:45; Start 09/08/19 at 10:45; Stop 09/08/19 at 11:44; Status DC Sodium Bicarbonate 100 meq/Dextrose 1,100 ml @ 75 mls/hr [id number] IV Last administered on 09/11/19at 01:43; Start 09/08/19 at 15:30; Stop 09/11/19 at 18:03; Status DC Calcium Chloride 2000 mg/Sodium Chloride 120 ml @ 240 mls/hr 1X ONCE IV ; Start 09/08/19 at 15:00; Stop 09/08/19 at 15:39; Status DC Calcium Gluconate 2000 mg/Sodium Chloride 120 ml @ 220 mls/hr 1X ONCE IV Last administered on 09/08/19at 15:58; Start 09/08/19 at 16:00; Stop 09/08/19 at 16:32; Status DC Nystatin (Nystop) 1 jennifer BID TP Last administered on 09/14/19at 09:29; Start 09/08/19 at 21:00 Ceftriaxone Sodium (Rocephin) 1 gm Q24H IVP Last administered on 09/09/19at 06:31; Start 09/09/19 at 06:00; Stop 09/09/19 at 23:06; Status DC Amlodipine Besylate (Norvasc) 5 mg DAILY PO Last administered on 09/14/19at 13:34; Start 09/09/19 at 09:00 Aspirin (Aspirin Chewable) 81 mg DAILY PO Last administered on 09/13/19at 09:55; Start 09/09/19 at 09:00 Atorvastatin Calcium (Lipitor) 40 mg QHS PO Last administered on 09/13/19 23:31; Start 09/09/19 at 21:00 Hydralazine HCl (Apresoline) 25 mg Q6HRS PO Last administered on 09/14/19 13:36; Start 09/09/19 at 12:00 Lidocaine (Lidoderm) 1 patch DAILY TP Last administered on 09/14/19 09:29; Start 09/09/19 at 09:00 Pantoprazole Sodium (Protonix) 40 mg DAILYAC PO Last administered on 09/13/19 09:55; Start 09/09/19 at 08:00 Tizanidine HCl (Zanaflex) 8 mg QID PO Last administered on 09/13/19 23:31; Start 09/09/19 at 09:00 Carvedilol (Coreg) 25 mg BIDWMEALS PO Last administered on 09/13/19 17:43; Start 09/09/19 at 08:00 Citalopram Hydrobromide (CeleXA) 20 mg DAILY PO Last administered on 09/13/19 09:55; Start 09/09/19 at 09:00 Gabapentin (Neurontin) 800 mg DAILY PO Last administered on 09/13/19 09:55; Start 09/09/19 at 09:00 Hydrocortisone (Cortaid) 1 jennifer PRN Q6HRS PRN TP RASH; Start 09/09/19 at 08:00 Non-Formulary Medication (Melatonin ) 1 tab QHS PO ; Start 09/09/19 at 21:00; Status UNV Miscellaneous (Lidoderm Patch Removal) 1 ea QHS MC Last administered on 09/10/19 21:00; Start 09/09/19 at 21:00 Ceftriaxone Sodium (Rocephin) 1 gm Q24H IVP ; Start 09/09/19 at 09:15; Status UNV Sodium Chloride 1,000 ml @ 1,000 mls/hr Q1H PRN IV hypotension; Start 09/09/19 at 10:00; Stop 09/09/19 at 15:59; Status DC Albumin Human 200 ml @ 200 mls/hr 1X PRN PRN IV Hypotension; Start 09/09/19 at 10:00; Stop 09/09/19 at 15:59; Status DC Sodium Chloride (Normal Saline Flush) 10 ml 1X PRN PRN IV AP catheter pack; Start 09/09/19 at 10:00; Stop 09/10/19 at 09:59; Status DC Sodium Chloride (Normal Saline Flush) 10 ml 1X PRN PRN IV POLYMERIZATION ENGINEER catheter pack; Start 09/09/19 at 10:00; Stop 09/10/19 at 09:59; Status DC Sodium Chloride 1,000 ml @ 400 mls/hr Q2H30M PRN IV PATENCY; Start 09/09/19 at 10:00; Stop 09/09/19 at 21:59; Status DC Info (PHARMACY MONITORING -- do not chart) 1 each PRN DAILY PRN MC SEE COMMENTS; Start 09/09/19 at 10:00; Stop 09/09/19 at 10:07; Status DC Info (PHARMACY MONITORING -- do not chart) 1 each PRN DAILY PRN MC SEE COMMENTS; Start 09/09/19 at 10:00; Status Cancel Lidocaine HCl (Buffered Lidocaine 1%) 3 ml STK-MED ONCE .ROUTE ; Start 09/09/19 at 12:26; Stop 09/09/19 at 12:27; Status DC Lidocaine HCl (Buffered Lidocaine 1%) 4 ml 1X ONCE INJ Last administered on 09/09/19at 13:07; Start 09/09/19 at 13:15; Stop 09/09/19 at 13:16; Status DC Acetaminophen (Tylenol Supp) 325 mg PRN Q6HRS PRN UT MILD PAIN / TEMP > 100.3'F Last administered on 09/10/19at 00:12; Start 09/09/19 at 23:15 Piperacillin Sod/ Tazobactam Sod 2.25 gm/Sodium Chloride 50 ml @ 100 mls/hr Q8HRS IV Last administered on 09/14/19at 05:45; Start 09/10/19 at 00:00 Sodium Chloride 1,000 ml @ 1,000 mls/hr Q1H PRN IV hypotension; Start 09/10/19 at 07:26; Stop 09/10/19 at 13:25; Status DC Albumin Human 200 ml @ 200 mls/hr 1X PRN PRN IV Hypotension; Start 09/10/19 at 07:30; Stop 09/10/19 at 13:29; Status DC Sodium Chloride (Normal Saline Flush) 10 ml 1X PRN PRN IV AP catheter pack; Start 09/10/19 at 07:30; Stop 09/11/19 at 07:29; Status DC Sodium Chloride (Normal Saline Flush) 10 ml 1X PRN PRN IV POLYMERIZATION ENGINEER catheter pack; Start 09/10/19 at 07:30; Stop 09/11/19 at 07:29; Status DC Sodium Chloride 1,000 ml @ 400 mls/hr Q2H30M PRN IV PATENCY; Start 09/10/19 at 07:26; Stop 09/10/19 at 19:25; Status DC Info (PHARMACY MONITORING -- do not chart) 1 each PRN DAILY PRN MC SEE COMMENTS; Start 09/10/19 at 07:30 Potassium Chloride/Water 100 ml @ 50 mls/hr Q2HR IV ; Start 09/10/19 at 08:00; Stop 09/10/19 at 08:45; Status DC Potassium Chloride/Water 100 ml @ 100 mls/hr Q1H IV Last administered on 09/11/19at 13:00; Start 09/11/19 at 07:00; Stop 09/11/19 at 10:59; Status DC Potassium Phosphate 13.6 mmol/Sodium Chloride 254.5333 ml @ 127.... Q2H IV Last administered on 09/11/19at 15:14; Start 09/11/19 at 12:00; Stop 09/11/19 at 15:59; Status DC Sodium Chloride 1,000 ml @ 75 mls/hr [id number] IV Last administered on 09/14/19at 05:44; Start 09/11/19 at 18:15 Potassium Chloride (Klor-Con) 40 meq 1X ONCE PO Last administered on 09/12/19at 06:25; Start 09/12/19 at 06:30; Stop 09/12/19 at 06:31; Status DC Potassium Chloride/Water 100 ml @ 100 mls/hr Q1H IV Last administered on 09/12/19at 17:22; Start 09/12/19 at 08:00; Stop 09/12/19 at 11:59; Status DC Sodium Chloride 1,000 ml @ 1,000 mls/hr Q1H PRN IV hypotension; Start 09/12/19 at 10:00; Stop 09/12/19 at 18:00; Status DC Sodium Chloride 1,000 ml @ 400 mls/hr Q2H30M PRN IV PATENCY; Start 09/12/19 at 10:00; Stop 09/12/19 at 21:59; Status DC Info (PHARMACY MONITORING -- do not chart) 1 each PRN DAILY PRN MC SEE COMMENTS; Start 09/12/19 at 11:30; Status UNV Info (PHARMACY MONITORING -- do not chart) 1 each PRN DAILY PRN MC SEE COMMENTS; Start 09/12/19 at 11:30; Status UNV Acetaminophen/ Butalbital/ Caffeine (Fioricet) 1 tab PRN Q6HRS PRN PO MIGRAINE HEADACHE Last administered on 09/13/19at 03:40; Start 09/13/19 at 02:45 Potassium Chloride (Klor-Con) 20 meq 1X ONCE PO Last administered on 09/13/19at 12:54; Start 09/13/19 at 12:00; Stop 09/13/19 at 12:01; Status DC Sodium Phosphate 15 mmol/Sodium Chloride 105 ml @ 105 mls/hr 1X ONCE IV Last administered on 09/13/19at 12:51; Start 09/13/19 at 13:00; Stop 09/13/19 at 13:59; Status DC Magnesium Sulfate 50 ml @ 25 mls/hr 1X ONCE IV Last administered on 09/13/19at 13:55; Start 09/13/19 at 12:00; Stop 09/13/19 at 13:59; Status DC Potassium Chloride/Water 100 ml @ 100 mls/hr Q1H IV Last administered on 09/14/19at 10:45; Start 09/14/19 at 10:00; Stop 09/14/19 at 13:59 Potassium Chloride/Water 100 ml @ 100 mls/hr Q1H IV ; Start 09/14/19 at 14:00; Stop 09/14/19 at 15:59 Magnesium Sulfate 50 ml @ 25 mls/hr 1X ONCE IV ; Start 09/14/19 at 09:00; Stop 09/14/19 at 10:59; Status DC Sodium Chloride 1,000 ml @ 1,000 mls/hr Q1H PRN IV hypotension; Start 09/14/19 at 10:04; Stop 09/14/19 at 16:03 Albumin Human 200 ml @ 200 mls/hr 1X PRN PRN IV Hypotension; Start 09/14/19 at 10:15; Stop 09/14/19 at 16:14 Sodium Chloride 1,000 ml @ 400 mls/hr Q2H30M PRN IV PATENCY; Start 09/14/19 at 10:04; Stop 09/14/19 at 22:03 Info (PHARMACY MONITORING -- do not chart) 1 each PRN DAILY PRN MC SEE COMMENTS; Start 09/14/19 at 10:15 Info (PHARMACY MONITORING -- do not chart) 1 each PRN DAILY PRN MC SEE COMM ENTS; Start 09/14/19 at 10:15 Active Scripts Active Hydralazine Hcl 25 Mg Tablet 25 Mg PO Q6HRS 60 Days Atorvastatin Calcium 40 Mg Tablet 40 Mg PO QHS Reported Zofran (Ondansetron Hcl) 4 Mg Tablet 1 Tab PO PRN Q6HRS PRN Topiramate 25 Mg Tablet 3 Tab PO BID 30 Days Tizanidine Hcl 4 Mg Tablet 2 Tab PO QID Gabapentin 800 Mg Tablet 800 Mg PO TID Melatonin 1 Mg Tablet 1 Tab PO QHS 30 Days Loperamide (Loperamide Hcl) 2 Mg Tablet 2 Mg PO PRN Q4HRS Lidocaine PATCH (Lidocaine) 1 Each Adh..patch 1 Each TP DAILY REMOVE AFTER 12 HOURS Hydrocortisone 453.6 Gm Cream..g. 1 Jennifer TP PRN Q6HRS D3-50 (Cholecalciferol (Vitamin D3)) 50,000 Unit Capsule 1,000 Unit PO DAILY Carvedilol 25 Mg Tablet 25 Mg PO BIDWMEALS Aspirin 81 Mg Tab.chew 1 Tab PO DAILY Amlodipine Besylate 5 Mg Tablet 5 Mg PO DAILY Acetaminophen 500 Mg Tablet 1,000 Mg PO PRN Q4HRS PRN Escitalopram Oxalate 10 Mg Tablet 10 Mg PO DAILY Metformin Hcl Er (Metformin Hcl) 750 Mg Tab.er.24h 1 Tab PO BID 30 Days Protonix (Pantoprazole Sodium) 40 Mg Tablet.dr 40 Mg PO DAILYAC Zestril (Lisinopril) 40 Mg Tablet 40 Mg PO DAILY Vitals/I & O Vital Sign - Last 24 Hours 09/13/19 09/13/19 09/13/19 09/13/19 14:39 17:43 17:44 19:00 Temp 98.4 98.9 98.4 98.9 Pulse 62 66 66 61 Resp 16 18 B/P (MAP) 95/55 (68) 145/75 145/75 161/68 (99) Pulse Ox 97 91 O2 Delivery Room Air 09/13/19 09/13/19 09/13/19 09/14/19 23:00 23:30 23:33 03:00 Temp 99.2 98.3 99.2 98.3 Pulse 60 61 54 Resp 20 18 B/P (MAP) 111/63 (79) 161/68 137/58 (84) Pulse Ox 94 96 O2 Delivery Room Air 09/14/19 09/14/19 09/14/19 09/14/19 05:45 07:00 10:46 13:34 Temp 97.8 97.8 97.8 97.8 Pulse 54 56 58 65 Resp 19 19 B/P (MAP) 137/58 155/60 (91) 159/60 (93) 191/93 Pulse Ox 95 95 O2 Delivery Room Air Room Air 09/14/19 13:36 Pulse 61 B/P (MAP) 190/93 Intake and Output 09/13/19 09/13/19 09/14/19 15:00 23:00 07:00 Intake Total 60 ml Output Total 500 ml Balance 60 ml -500 ml JAYNE MILLAN MD Sep 14, 2019 13:42
[2019-09-14] MEDS: PANTOPRAZOLE 40 MG TABLET.DR. PO SCH (16:55)
[2019-09-14] MEDS: CITALOPRAM 20 MG TABLET. PO SCH (16:55)
[2019-09-14] MEDS: GABAPENTIN 400 MG CAPSULE. PO SCH (16:55)
[2019-09-14] MEDS: ASPIRIN CHEWABLE 81 MG TABLET. PO SCH (16:55)
[2019-09-14] MEDS: CARVEDILOL 12.5 MG TABLET. PO SCH ×2 (17:00→17:04)
[2019-09-14] MEDS ORDERED: LABETALOL 20 MG/4 ML DISP.SYRIN. IVP PRN (17:45)
[2019-09-14 19:00] VITALS: BP 117/48
[2019-09-14] MEDS: PATCH REMOVAL. MC SCH (21:00)
[2019-09-14] MEDS: CEFDINIR 300 MG CAPSULE PO SCH (21:15)
[2019-09-14] MEDS: ATORVASTATIN CALCIUM 40 MG TABLET. PO SCH (21:15)
[2019-09-14 23:00] VITALS: BP 134/65
[2019-09-15] VITALS (13 sets, daily range): BP systolic 109–208; BP diastolic 46–98
[2019-09-15] MEDS: hydrALAZINE 25 MG TABLET PO SCH ×5 (00:02→23:31)
[2019-09-15 05:41] LABS: HEMATOCRIT 31.8 % (36.0-47.0); HEMOGLOBIN 10.6 g/dL (12.0-15.5); RED BLOOD COUNT 3.59 x10^6/uL (3.50-5.40); RED CELL DISTRIBUTION WIDTH 14.6 % (11.5-14.5); WHITE BLOOD COUNT 10.7 x10^3/uL (4.0-11.0)
[2019-09-15 05:48] LABS: CREATININE 2.1 mg/dL (0.6-1.0); GFR 25.5; POTASSIUM 3.4 mmol/L (3.5-5.1)
[2019-09-15 05:52] LABS: ALBUMIN 2.5 g/dL (3.4-5.0); MAGNESIUM 1.7 mg/dL (1.8-2.4); PHOSPHORUS 2.4 mg/dL (2.6-4.7)
[2019-09-15 08:28] LABS: PROTHROMBIN TIME PATIENT 14.7 SEC (11.7-14.0)
[2019-09-15] MEDS ORDERED: LIDOCAINE 1%/EPI 1:100,000 20 ML VIAL. ONE (09:12)
[2019-09-15] MEDS ORDERED: fentaNYL PF VIAL 100 MCG/2 ML VIAL IV ONE (09:30)
[2019-09-15] MEDS ORDERED: LIDOCAINE 1%/EPI 1:100,000 20 ML VIAL. SQ ONE (09:30)
[2019-09-15] MEDS ORDERED: MIDAZOLAM HCL/PF 2 MG/2 ML VIAL. IV ONE (09:30)
[2019-09-15] MEDS ORDERED: MIDAZOLAM HCL/PF 2 MG/2 ML VIAL. ONE (09:31)
[2019-09-15] MEDS ORDERED: fentaNYL PF VIAL 100 MCG/2 ML VIAL ONE (09:32)
[2019-09-15] MEDS ORDERED: hydrALAZINE 20 MG/ML VIAL. ONE (09:59)
[2019-09-15] MEDS ORDERED: hydrALAZINE 20 MG/ML VIAL. IVP ONE (10:15)
--- NOTE | 2019-09-15 10:40 | NUR ---
PATIENT RETURNED TO UNIT FROM HAVING TUNNELLED DIALYSIS CATH PLACED, PATIENT ALERT BUT DROWSY, CLEAN/DRY DRSG. (GAUZE AND OP SITE) NOTICED ON PATIENTS' LEFT UPPER CHEST, TUNNELLED DIALYSIS CATH WITH DRESSING CLEAN/DRY AND INTACT NOTICED TO RIGHT CHEST AREA, WILL MONITOR.
--- NOTE | 2019-09-15 11:41 | PDOC ---
Renal-Progress Notes Subjective Notes Notes NONE History of Present Illness Hx of present illness CONFUSED Vitals Vitals Vital Signs Date Time Temp Pulse Resp B/P (MAP) Pulse Ox O2 Delivery O2 Flow Rate FiO2 09/15/19 11:15 72 18 167/90 (115) 95 Room Air 09/15/19 10:21 2.0 09/15/19 07:00 97.8 97.8 Weight Weight [ ] I.O. Intake and Output Intake and Output 09/15/19 07:00 Intake Total 0 ml Output Total 900 ml Balance -900 ml Intake Oral 0 ml Output Urine Total 900 ml # Bowel Movements 6 Labs Labs Laboratory Tests Test 09/14/19 11:42 09/14/19 15:30 09/14/19 19:38 09/15/19 05:15 Glucose (Fingerstick) 105 mg/dL (70-99) 89 mg/dL (70-99) 114 mg/dL (70-99) White Blood Count 10.7 x10^3/uL (4.0-11.0) Red Blood Count 3.59 x10^6/uL (3.50-5.40) Hemoglobin 10.6 g/dL (12.0-15.5) Hematocrit 31.8 % (36.0-47.0) Mean Corpuscular Volume 89 fL (79-100) Mean Corpuscular Hemoglobin 30 pg (25-35) Mean Corpuscular Hemoglobin Concent 33 g/dL (31-37) Red Cell Distribution Width 14.6 % (11.5-14.5) Platelet Count 212 x10^3/uL (140-400) Prothrombin Time 14.7 SEC (11.7-14.0) Prothromb Time International Ratio 1.2 (0.8-1.1) Sodium Level 142 mmol/L (136-145) Potassium Level 3.4 mmol/L (3.5-5.1) Chloride Level 104 mmol/L (98-107) Carbon Dioxide Level 27 mmol/L (21-32) Anion Gap 11 (6-14) Blood Urea Nitrogen 8 mg/dL (7-20) Creatinine 2.1 mg/dL (0.6-1.0) Estimated GFR (Cockcroft-Gault) 25.5 Glucose Level 102 mg/dL (70-99) Calcium Level 8.0 mg/dL (8.5-10.1) Phosphorus Level 2.4 mg/dL (2.6-4.7) Magnesium Level 1.7 mg/dL (1.8-2.4) Albumin 2.5 g/dL (3.4-5.0) Test 09/15/19 07:29 Glucose (Fingerstick) 90 mg/dL (70-99) Micro Micro Microbiology 09/09/19 Blood Culture - Final, Complete NO GROWTH AFTER 5 DAYS 09/08/19 Urine Culture - Final, Complete 09/08/19 Antimicrobic Susceptibility - Final, Complete Review of Systems Constitutional: yes: alert Ears/Nose/Throat: Yes: no symptom reported Eyes: Yes: no symptom reported Pulmonary: Yes no symptom reported Gastrointestional: Yes: constipation Musculoskeletal: Yes: muscle stiffness Skin: Yes no symptom reported Psychiatric/Neurological: Yes: no symptom reported Physical Exam General Appearance: no apparent distress Skin: warm Respiratory: decreased breath sounds Heart: S1S2 Abdomen: soft, bowel sounds present Genitourinary: bladder flat Extremities: pulses present Neurology: alert Musculoskeletal: Osteoarthritis, Other Assessment Assessment IMP HYPOKALEMIA-BETTER LESLIE-NO CLEARANCE-NO CKD ATN-UO IMPROVING MET ACIDOSIS-BETTER LOW MAG AND PO4 LEUCOCYTOSIS UTI HX CVA DM OBESITY MET ENCEPHALOPATHY PLAN ANTIBIOTICS LOOK FOR RENAL RECOVERY HD TODAY MINIMAL UF REPLACE MAG AND PO4 CONT SALINE WILL ASK IR TO CONVERT TO TUNNELED HD CATHETER ANTICIPATE SHE WILL NEED HD FOR A WHILE LTAC PENDING D/W ATTENDING ZHANG MCDOWELL MD Sep 15, 2019 11:40
[2019-09-15] MEDS ORDERED: MAGNESIUM SULFATE 2GM 50 ML IV ONE (12:00)
[2019-09-15] MEDS: POTASSIUM PHOS,M-BASIC-D-BASIC 10 MMOL in IV NORMAL SALINE 100ML 100 ML IV SCH ×2 (12:00→14:26)
--- NOTE | 2019-09-15 12:05 | PDOC ---
PROGRESS NOTES Chief Complaint Chief Complaint Acute encephalopathy, etiology undetermined which may be central etiology versus uremia (metabolic) Suspected UTI Hypokalemia Acute renal failure, vasomotor etiology most likely High anion gap metabolic acidosis History of diabetes mellitus type 2 Essential hypertension History of CVA Plan results of CT of the head reviewed please see below Renal ultrasound reviewed normal findings. Resume home medications Continue with dialysis as per market consultant Reassess in the a.m. Further recommendations based on the clinical course DVT prophylaxis with SCDs CT head: CT of the head without contrast HISTORY: Encephalopathy Comparison study: CT of the head without contrast July 30, 2019 Discussion: CT scan of the brain was done without contrast. There is no intracranial hemorrhage. Ventricles are unchanged in size. Similar-appearing right parasagittal frontal and parietal lobe encephalomalacia. No evidence of subacute territorial infarct is identified. No evidence of new chronic infarct is seen.. There is no shift of the midline. No acute midline shift is identified. No acute osseous changes are seen. IMPRESSION: Stable exam without evidence of acute intracranial abnormality History of Present Illness History of Present Illness 09/08: No acute events reported overnight, case discussed with nursing staff patient in no acute distress no complaints during my visit, patient still non verbal results of her CT of the head reviewed and found negative, labs noted 09/09: Patient continues to be pretty much the same seems to be a little bit more responsive today compared to yesterday she responds to her name no acute events reported overnight tolerating hemodialysis well this may well be metabolic encephalopathy hopefully with correction of her electrolytes she may be coming out of her stupor. Case management requesting COVID testing first and under investigation for placement 09/10: No acute events reported overnight, case discussed with nursing staff patient in no acute distress no complaints during my visit her altered mental status seems to be related to uremia, will continue to follow monitor daily basis electrolyte disturbance noted which can be corrected during dialysis 09/11: No acute events reported overnight, case discussed with nursing staff patient in no acute distress no complaints during my visit, patient seems to be back at baseline encephalopathy most likely due to uremia, will continue with dialysis as per market consultant. Electrolyte disturbance noted 09/12: Patient much more awake today and seems to be interacting more and more, laboratory data has been reviewed. Plan of care explained in detail reassurance has been provided 09/13: Patient's numbers are improving nevertheless her urinary output is still marginal. Case discussed with Dr. Coles we will start the process of arranging for outpatient dialysis Covid test will be requested 09/14: Patient underwent a tunneled catheter by interventional radiology today patient continues to be somewhat confused which seems to be her baseline given her history of CVA. Urine output is up to 900 cc per 24 hours which is better than the day before Vitals Vitals Vital Signs Date Time Temp Pulse Resp B/P (MAP) Pulse Ox O2 Delivery O2 Flow Rate FiO2 09/15/19 11:15 72 18 167/90 (115) 95 Room Air 09/15/19 10:21 2.0 09/15/19 07:00 97.8 97.8 Physical Exam Physical Exam GEN.: No apparent distress. Alert difficult to assess if she is oriented but responds to her name HEENT: Head is normocephalic, atraumatic NECK: Supple. LUNGS: Clear to auscultation. HEART: RRR, S1, S2 present. Peripheral pulses intact ABDOMEN: Soft, nontender. Positive bowel sounds. EXTREMITIES: Without any cyanosis. NEUROLOGIC: Cranial nerves II to XII seem to be grossly intact patient is moving all extremities PSYCHIATRIC: Unable to evaluate SKIN: No ulcerations General: Alert Lungs: Clear Labs LABS Laboratory Tests Test 09/14/19 15:30 09/14/19 19:38 09/15/19 05:15 09/15/19 07:29 Glucose (Fingerstick) 89 mg/dL (70-99) 114 mg/dL (70-99) 90 mg/dL (70-99) White Blood Count 10.7 x10^3/uL (4.0-11.0) Red Blood Count 3.59 x10^6/uL (3.50-5.40) Hemoglobin 10.6 g/dL (12.0-15.5) Hematocrit 31.8 % (36.0-47.0) Mean Corpuscular Volume 89 fL (79-100) Mean Corpuscular Hemoglobin 30 pg (25-35) Mean Corpuscular Hemoglobin Concent 33 g/dL (31-37) Red Cell Distribution Width 14.6 % (11.5-14.5) Platelet Count 212 x10^3/uL (140-400) Prothrombin Time 14.7 SEC (11.7-14.0) Prothromb Time International Ratio 1.2 (0.8-1.1) Sodium Level 142 mmol/L (136-145) Potassium Level 3.4 mmol/L (3.5-5.1) Chloride Level 104 mmol/L (98-107) Carbon Dioxide Level 27 mmol/L (21-32) Anion Gap 11 (6-14) Blood Urea Nitrogen 8 mg/dL (7-20) Creatinine 2.1 mg/dL (0.6-1.0) Estimated GFR (Cockcroft-Gault) 25.5 Glucose Level 102 mg/dL (70-99) Calcium Level 8.0 mg/dL (8.5-10.1) Phosphorus Level 2.4 mg/dL (2.6-4.7) Magnesium Level 1.7 mg/dL (1.8-2.4) Albumin 2.5 g/dL (3.4-5.0) Assessment and Plan Assessmemt and Plan Problems Medical Problems: (1) Acute kidney failure Status: Acute (2) Hypotension Status: Acute (3) Severe dehydration Status: Acute (4) UTI (urinary tract infection) Status: Acute Comment Review of Relevant I have reviewed the following items dunia (where applicable) has been applied. Labs Laboratory Tests Test 09/13/19 16:13 09/13/19 21:20 09/14/19 05:40 09/14/19 11:42 Glucose (Fingerstick) 109 mg/dL (70-99) 114 mg/dL (70-99) 105 mg/dL (70-99) Sodium Level 143 mmol/L (136-145) Potassium Level 2.8 mmol/L (3.5-5.1) Chloride Level 105 mmol/L (98-107) Carbon Dioxide Level 26 mmol/L (21-32) Anion Gap 12 (6-14) Blood Urea Nitrogen 18 mg/dL (7-20) Creatinine 3.1 mg/dL (0.6-1.0) Estimated GFR (Cockcroft-Gault) 16.2 Glucose Level 99 mg/dL (70-99) Calcium Level 7.3 mg/dL (8.5-10.1) Phosphorus Level 2.9 mg/dL (2.6-4.7) Magnesium Level 1.6 mg/dL (1.8-2.4) Albumin 2.4 g/dL (3.4-5.0) Test 09/14/19 15:30 09/14/19 19:38 09/15/19 05:15 09/15/19 07:29 Glucose (Fingerstick) 89 mg/dL (70-99) 114 mg/dL (70-99) 90 mg/dL (70-99) White Blood Count 10.7 x10^3/uL (4.0-11.0) Red Blood Count 3.59 x10^6/uL (3.50-5.40) Hemoglobin 10.6 g/dL (12.0-15.5) Hematocrit 31.8 % (36.0-47.0) Mean Corpuscular Volume 89 fL (79-100) Mean Corpuscular Hemoglobin 30 pg (25-35) Mean Corpuscular Hemoglobin Concent 33 g/dL (31-37) Red Cell Distribution Width 14.6 % (11.5-14.5) Platelet Count 212 x10^3/uL (140-400) Prothrombin Time 14.7 SEC (11.7-14.0) Prothromb Time International Ratio 1.2 (0.8-1.1) Sodium Level 142 mmol/L (136-145) Potassium Level 3.4 mmol/L (3.5-5.1) Chloride Level 104 mmol/L (98-107) Carbon Dioxide Level 27 mmol/L (21-32) Anion Gap 11 (6-14) Blood Urea Nitrogen 8 mg/dL (7-20) Creatinine 2.1 mg/dL (0.6-1.0) Estimated GFR (Cockcroft-Gault) 25.5 Glucose Level 102 mg/dL (70-99) Calcium Level 8.0 mg/dL (8.5-10.1) Phosphorus Level 2.4 mg/dL (2.6-4.7) Magnesium Level 1.7 mg/dL (1.8-2.4) Albumin 2.5 g/dL (3.4-5.0) Laboratory Tests Test 09/14/19 15:30 09/14/19 19:38 09/15/19 05:15 09/15/19 07:29 Glucose (Fingerstick) 89 mg/dL (70-99) 114 mg/dL (70-99) 90 mg/dL (70-99) White Blood Count 10.7 x10^3/uL (4.0-11.0) Red Blood Count 3.59 x10^6/uL (3.50-5.40) Hemoglobin 10.6 g/dL (12.0-15.5) Hematocrit 31.8 % (36.0-47.0) Mean Corpuscular Volume 89 fL (79-100) Mean Corpuscular Hemoglobin 30 pg (25-35) Mean Corpuscular Hemoglobin Concent 33 g/dL (31-37) Red Cell Distribution Width 14.6 % (11.5-14.5) Platelet Count 212 x10^3/uL (140-400) Prothrombin Time 14.7 SEC (11.7-14.0) Prothromb Time International Ratio 1.2 (0.8-1.1) Sodium Level 142 mmol/L (136-145) Potassium Level 3.4 mmol/L (3.5-5.1) Chloride Level 104 mmol/L (98-107) Carbon Dioxide Level 27 mmol/L (21-32) Anion Gap 11 (6-14) Blood Urea Nitrogen 8 mg/dL (7-20) Creatinine 2.1 mg/dL (0.6-1.0) Estimated GFR (Cockcroft-Gault) 25.5 Glucose Level 102 mg/dL (70-99) Calcium Level 8.0 mg/dL (8.5-10.1) Phosphorus Level 2.4 mg/dL (2.6-4.7) Magnesium Level 1.7 mg/dL (1.8-2.4) Albumin 2.5 g/dL (3.4-5.0) Microbiology 09/09/19 Blood Culture - Final, Complete NO GROWTH AFTER 5 DAYS 09/08/19 Urine Culture - Final, Complete 09/08/19 Antimicrobic Susceptibility - Final, Complete Medications Current Medications Sodium Chloride 1,000 ml @ 1,000 mls/hr Q1H IV Last administered on 09/07/19at 00:40; Start 09/07/19 at 23:30; Stop 09/08/19 at 00:29; Status DC Ceftriaxone Sodium (Rocephin) 1 gm 1X ONCE IVP Last administered on 09/08/19at 02:50; Start 09/08/19 at 02:45; Stop 09/08/19 at 02:46; Status DC Magnesium Sulfate 50 ml @ 25 mls/hr 1X ONCE IV Last administered on 09/08/19at 02:51; Start 09/08/19 at 02:45; Stop 09/08/19 at 04:44; Status DC Ondansetron HCl (Zofran) 4 mg PRN Q8HRS PRN IV NAUSEA/VOMITING; Start 09/08/19 at 02:30; Stop 09/09/19 at 02:29; Status DC Sodium Chloride 1,000 ml @ 150 mls/hr Q6H40M IV Last administered on 09/08/19at 08:42; Start 09/08/19 at 02:02; Stop 09/09/19 at 02:01; Status DC Labetalol HCl (Normodyne Iv Push) 10 mg 1X ONCE IVP ; Start 09/08/19 at 03:00; Stop 09/08/19 at 03:02; Status DC Sodium Chloride 1,000 ml @ 1,000 mls/hr 1X ONCE IV Last administered on 09/08/19at 10:45; Start 09/08/19 at 10:45; Stop 09/08/19 at 11:44; Status DC Sodium Bicarbonate 100 meq/Dextrose 1,100 ml @ 75 mls/hr [id number] IV Last administered on 09/11/19at 01:43; Start 09/08/19 at 15:30; Stop 09/11/19 at 18:03; Status DC Calcium Chloride 2000 mg/Sodium Chloride 120 ml @ 240 mls/hr 1X ONCE IV ; Start 09/08/19 at 15:00; Stop 09/08/19 at 15:39; Status DC Calcium Gluconate 2000 mg/Sodium Chloride 120 ml @ 220 mls/hr 1X ONCE IV Last administered on 09/08/19at 15:58; Start 09/08/19 at 16:00; Stop 09/08/19 at 16:32; Status DC Nystatin (Nystop) 1 jennifer BID TP Last administered on 09/14/19at 21:00; Start 09/08/19 at 21:00 Ceftriaxone Sodium (Rocephin) 1 gm Q24H IVP Last administered on 09/09/19at 06:31; Start 09/09/19 at 06:00; Stop 09/09/19 at 23:06; Status DC Amlodipine Besylate (Norvasc) 5 mg DAILY PO Last administered on 09/14/19 13:34; Start 09/09/19 at 09:00 Aspirin (Aspirin Chewable) 81 mg DAILY PO Last administered on 09/14/19 16:55; Start 09/09/19 at 09:00 Atorvastatin Calcium (Lipitor) 40 mg QHS PO Last administered on 09/14/19 21:15; Start 09/09/19 at 21:00 Hydralazine HCl (Apresoline) 25 mg Q6HRS PO Last administered on 09/15/19 00:02; Start 09/09/19 at 12:00 Lidocaine (Lidoderm) 1 patch DAILY TP Last administered on 09/14/19 09:29; Start 09/09/19 at 09:00 Pantoprazole Sodium (Protonix) 40 mg DAILYAC PO Last administered on 09/14/19 16:55; Start 09/09/19 at 08:00 Tizanidine HCl (Zanaflex) 8 mg QID PO Last administered on 09/14/19 21:15; Start 09/09/19 at 09:00 Carvedilol (Coreg) 25 mg BIDWMEALS PO Last administered on 09/14/19 17:04; Start 09/09/19 at 08:00 Citalopram Hydrobromide (CeleXA) 20 mg DAILY PO Last administered on 09/14/19 16:55; Start 09/09/19 at 09:00 Gabapentin (Neurontin) 800 mg DAILY PO Last administered on 09/14/19 16:55; Start 09/09/19 at 09:00 Hydrocortisone (Cortaid) 1 jennifer PRN Q6HRS PRN TP RASH; Start 09/09/19 at 08:00 Non-Formulary Medication (Melatonin ) 1 tab QHS PO ; Start 09/09/19 at 21:00; Status UNV Miscellaneous (Lidoderm Patch Removal) 1 ea QHS MC Last administered on 09/14/19 21:00; Start 09/09/19 at 21:00 Ceftriaxone Sodium (Rocephin) 1 gm Q24H IVP ; Start 09/09/19 at 09:15; Status UNV Sodium Chloride 1,000 ml @ 1,000 mls/hr Q1H PRN IV hypotension; Start 09/09/19 at 10:00; Stop 09/09/19 at 15:59; Status DC Albumin Human 200 ml @ 200 mls/hr 1X PRN PRN IV Hypotension; Start 09/09/19 at 10:00; Stop 09/09/19 at 15:59; Status DC Sodium Chloride (Normal Saline Flush) 10 ml 1X PRN PRN IV AP catheter pack; Start 09/09/19 at 10:00; Stop 09/10/19 at 09:59; Status DC Sodium Chloride (Normal Saline Flush) 10 ml 1X PRN PRN IV BUTTON BRADDER catheter pack; Start 09/09/19 at 10:00; Stop 09/10/19 at 09:59; Status DC Sodium Chloride 1,000 ml @ 400 mls/hr Q2H30M PRN IV PATENCY; Start 09/09/19 at 10:00; Stop 09/09/19 at 21:59; Status DC Info (PHARMACY MONITORING -- do not chart) 1 each PRN DAILY PRN MC SEE COMMENTS; Start 09/09/19 at 10:00; Stop 09/09/19 at 10:07; Status DC Info (PHARMACY MONITORING -- do not chart) 1 each PRN DAILY PRN MC SEE COMMENTS; Start 09/09/19 at 10:00; Status Cancel Lidocaine HCl (Buffered Lidocaine 1%) 3 ml STK-MED ONCE .ROUTE ; Start 09/09/19 at 12:26; Stop 09/09/19 at 12:27; Status DC Lidocaine HCl (Buffered Lidocaine 1%) 4 ml 1X ONCE INJ Last administered on 09/09/19at 13:07; Start 09/09/19 at 13:15; Stop 09/09/19 at 13:16; Status DC Acetaminophen (Tylenol Supp) 325 mg PRN Q6HRS PRN [place] MILD PAIN / TEMP > 100.3'F Last administered on 09/10/19at 00:12; Start 09/09/19 at 23:15 Piperacillin Sod/ Tazobactam Sod 2.25 gm/Sodium Chloride 50 ml @ 100 mls/hr Q8HRS IV Last administered on 09/14/19at 05:45; Start 09/10/19 at 00:00; Stop 09/14/19 at 16:26; Status DC Sodium Chloride 1,000 ml @ 1,000 mls/hr Q1H PRN IV hypotension; Start 09/10/19 at 07:26; Stop 09/10/19 at 13:25; Status DC Albumin Human 200 ml @ 200 mls/hr 1X PRN PRN IV Hypotension; Start 09/10/19 at 07:30; Stop 09/10/19 at 13:29; Status DC Sodium Chloride (Normal Saline Flush) 10 ml 1X PRN PRN IV AP catheter pack; Start 09/10/19 at 07:30; Stop 09/11/19 at 07:29; Status DC Sodium Chloride (Normal Saline Flush) 10 ml 1X PRN PRN IV BUTTON BRADDER catheter pack; Start 09/10/19 at 07:30; Stop 09/11/19 at 07:29; Status DC Sodium Chloride 1,000 ml @ 400 mls/hr Q2H30M PRN IV PATENCY; Start 09/10/19 at 07:26; Stop 09/10/19 at 19:25; Status DC Info (PHARMACY MONITORING -- do not chart) 1 each PRN DAILY PRN MC SEE COMMENTS; Start 09/10/19 at 07:30; Stop 09/14/19 at 15:44; Status DC Potassium Chloride/Water 100 ml @ 50 mls/hr Q2HR IV ; Start 09/10/19 at 08:00; Stop 09/10/19 at 08:45; Status DC Potassium Chloride/Water 100 ml @ 100 mls/hr Q1H IV Last administered on 09/11/19at 13:00; Start 09/11/19 at 07:00; Stop 09/11/19 at 10:59; Status DC Potassium Phosphate 13.6 mmol/Sodium Chloride 254.5333 ml @ 127.... Q2H IV Last administered on 09/11/19at 15:14; Start 09/11/19 at 12:00; Stop 09/11/19 at 15:59; Status DC Sodium Chloride 1,000 ml @ 75 mls/hr [id number] IV Last administered on 09/14/19at 05:44; Start 09/11/19 at 18:15; Stop 09/14/19 at 16:26; Status DC Potassium Chloride (Klor-Con) 40 meq 1X ONCE PO Last administered on 09/12/19at 06:25; Start 09/12/19 at 06:30; Stop 09/12/19 at 06:31; Status DC Potassium Chloride/Water 100 ml @ 100 mls/hr Q1H IV Last administered on 09/12/19at 17:22; Start 09/12/19 at 08:00; Stop 09/12/19 at 11:59; Status DC Sodium Chloride 1,000 ml @ 1,000 mls/hr Q1H PRN IV hypotension; Start 09/12/19 at 10:00; Stop 09/12/19 at 18:00; Status DC Sodium Chloride 1,000 ml @ 400 mls/hr Q2H30M PRN IV PATENCY; Start 09/12/19 at 10:00; Stop 09/12/19 at 21:59; Status DC Info (PHARMACY MONITORING -- do not chart) 1 each PRN DAILY PRN MC SEE COMMENTS; Start 09/12/19 at 11:30; Status UNV Info (PHARMACY MONITORING -- do not chart) 1 each PRN DAILY PRN MC SEE COMMENTS; Start 09/12/19 at 11:30; Status UNV Acetaminophen/ Butalbital/ Caffeine (Fioricet) 1 tab PRN Q6HRS PRN PO MIGRAINE HEADACHE Last administered on 09/13/19at 03:40; Start 09/13/19 at 02:45 Potassium Chloride (Klor-Con) 20 meq 1X ONCE PO Last administered on 09/13/19at 12:54; Start 09/13/19 at 12:00; Stop 09/13/19 at 12:01; Status DC Sodium Phosphate 15 mmol/Sodium Chloride 105 ml @ 105 mls/hr 1X ONCE IV Last administered on 09/13/19at 12:51; Start 09/13/19 at 13:00; Stop 09/13/19 at 13:59; Status DC Magnesium Sulfate 50 ml @ 25 mls/hr 1X ONCE IV Last administered on 09/13/19at 13:55; Start 09/13/19 at 12:00; Stop 09/13/19 at 13:59; Status DC Potassium Chloride/Water 100 ml @ 100 mls/hr Q1H IV Last administered on 09/14/19at 18:34; Start 09/14/19 at 10:00; Stop 09/14/19 at 13:59; Status DC Potassium Chloride/Water 100 ml @ 100 mls/hr Q1H IV Last administered on 09/14/19at 23:20; Start 09/14/19 at 14:00; Stop 09/14/19 at 15:59; Status DC Magnesium Sulfate 50 ml @ 25 mls/hr 1X ONCE IV Last administered on 09/14/19at 16:44; Start 09/14/19 at 09:00; Stop 09/14/19 at 10:59; Status DC Sodium Chloride 1,000 ml @ 1,000 mls/hr Q1H PRN IV hypotension; Start 09/14/19 at 10:04; Stop 09/14/19 at 16:03; Status DC Albumin Human 200 ml @ 200 mls/hr 1X PRN PRN IV Hypotension; Start 09/14/19 at 10:15; Stop 09/14/19 at 16:14; Status DC Sodium Chloride 1,000 ml @ 400 mls/hr Q2H30M PRN IV PATENCY; Start 09/14/19 at 10:04; Stop 09/14/19 at 22:03; Status DC Info (PHARMACY MONITORING -- do not chart) 1 each PRN DAILY PRN MC SEE COMMENTS; Start 09/14/19 at 10:15 Info (PHARMACY MONITORING -- do not chart) 1 each PRN DAILY PRN MC SEE COMMENTS; Start 09/14/19 at 10:15; Stop 09/14/19 at 15:44; Status DC Cefdinir (Omnicef) 300 mg QHS PO Last administered on 09/14/19at 21:15; Start 09/14/19 at 21:00 Labetalol HCl (Normodyne Iv Push) 10 mg PRN Q4HRS PRN IVP HYPERTENSION Last administered on 09/15/19at 03:52; Start 09/14/19 at 17:45 Lidocaine/ Epinephrine (LIDOCAINE 1%-EPI 1:100,000 Multi-Dose) 20 ml STK-MED ONCE .ROUTE ; Start 09/15/19 at 09:12; Stop 09/15/19 at 09:13; Status DC Midazolam HCl (Versed) 2 mg 1X ONCE IV Last administered on 09/15/19at 09:52; Start 09/15/19 at 09:30; Stop 09/15/19 at 09:31; Status DC Fentanyl Citrate (Fentanyl 2ml Vial) 100 mcg 1X ONCE IV Last administered on 09/15/19at 09:52; Start 09/15/19 at 09:30; Stop 09/15/19 at 09:31; Status DC Lidocaine/ Epinephrine (LIDOCAINE 1%-EPI 1:100,000 Multi-Dose) 20 ml 1X ONCE SQ Last administered on 09/15/19at 09:53; Start 09/15/19 at 09:30; Stop 09/15/19 at 09:31; Status DC Midazolam HCl (Versed) 2 mg STK-MED ONCE .ROUTE ; Start 09/15/19 at 09:31; Stop 09/15/19 at 09:32; Status DC Fentanyl Citrate (Fentanyl 2ml Vial) 100 mcg STK-MED ONCE .ROUTE ; Start 09/15/19 at 09:32; Stop 09/15/19 at 09:32; Status DC Hydralazine HCl (Apresoline Inj) 20 mg STK-MED ONCE .ROUTE ; Start 09/15/19 at 09:59; Stop 09/15/19 at 09:59; Status DC Hydralazine HCl (Apresoline Inj) 20 mg 1X ONCE IVP Last administered on 09/15/19at 10:09; Start 09/15/19 at 10:15; Stop 09/15/19 at 10:16; Status DC Potassium Phosphate 10 mmol/ Sodium Chloride 103.3333 ml @ 51.667 m... Q2H IV ; Start 09/15/19 at 12:00; Stop 09/15/19 at 15:59 Magnesium Sulfate 50 ml @ 25 mls/hr 1X ONCE IV ; Start 09/15/19 at 12:00; Stop 09/15/19 at 13:59 Active Scripts Active Hydralazine Hcl 25 Mg Tablet 25 Mg PO Q6HRS 60 Days Atorvastatin Calcium 40 Mg Tablet 40 Mg PO QHS Reported Zofran (Ondansetron Hcl) 4 Mg Tablet 1 Tab PO PRN Q6HRS PRN Topiramate 25 Mg Tablet 3 Tab PO BID 30 Days Tizanidine Hcl 4 Mg Tablet 2 Tab PO QID Gabapentin 800 Mg Tablet 800 Mg PO TID Melatonin 1 Mg Tablet 1 Tab PO QHS 30 Days Loperamide (Loperamide Hcl) 2 Mg Tablet 2 Mg PO PRN Q4HRS Lidocaine PATCH (Lidocaine) 1 Each Adh..patch 1 Each TP DAILY REMOVE AFTER 12 HOURS Hydrocortisone 453.6 Gm Cream..g. 1 Jennifer TP PRN Q6HRS D3-50 (Cholecalciferol (Vitamin D3)) 50,000 Unit Capsule 1,000 Unit PO DAILY Carvedilol 25 Mg Tablet 25 Mg PO BIDWMEALS Aspirin 81 Mg Tab.chew 1 Tab PO DAILY Amlodipine Besylate 5 Mg Tablet 5 Mg PO DAILY Acetaminophen 500 Mg Tablet 1,000 Mg PO PRN Q4HRS PRN Escitalopram Oxalate 10 Mg Tablet 10 Mg PO DAILY Metformin Hcl Er (Metformin Hcl) 750 Mg Tab.er.24h 1 Tab PO BID 30 Days Protonix (Pantoprazole Sodium) 40 Mg Tablet.dr 40 Mg PO DAILYAC Zestril (Lisinopril) 40 Mg Tablet 40 Mg PO DAILY Vitals/I & O Vital Sign - Last 24 Hours 09/14/19 09/14/19 09/14/19 09/14/19 13:34 13:36 17:04 17:04 Pulse 65 61 98 98 B/P (MAP) 191/93 190/93 186/109 186/109 09/14/19 09/14/19 09/14/19 09/15/19 19:00 20:00 23:00 00:02 Temp 98.8 98.9 98.8 98.9 Pulse 65 59 59 Resp 19 19 B/P (MAP) 117/48 (71) 134/65 (88) 134/65 Pulse Ox 94 95 O2 Delivery Room Air Room Air Room Air 09/15/19 09/15/19 09/15/19 09/15/19 03:00 03:52 07:00 09:52 Temp 98.4 97.8 98.4 97.8 Pulse 60 58 60 Resp 19 18 17 B/P (MAP) 201/94 (129) 201/94 179/88 (118) Pulse Ox 93 94 O2 Delivery Room Air Room Air 09/15/19 09/15/19 09/15/19 09/15/19 10:09 10:21 10:45 11:00 Pulse 62 67 63 67 Resp 17 18 18 B/P (MAP) 144/78 (100) 173/92 (119) Pulse Ox 96 92 91 O2 Delivery Nasal Cannula Room Air Room Air O2 Flow Rate 2.0 09/15/19 11:15 Pulse 72 Resp 18 B/P (MAP) 167/90 (115) Pulse Ox 95 O2 Delivery Room Air Intake and Output 09/14/19 09/14/19 09/15/19 15:00 23:00 07:00 Intake Total 0 ml 0 ml Output Total 900 ml Balance -900 ml 0 ml JAYNE MILLAN MD Sep 15, 2019 12:05
[2019-09-15] MEDS: CITALOPRAM 20 MG TABLET. PO SCH (12:21)
[2019-09-15] MEDS: CARVEDILOL 12.5 MG TABLET. PO SCH ×2 (12:21→17:00)
[2019-09-15] MEDS: GABAPENTIN 400 MG CAPSULE. PO SCH (12:21)
[2019-09-15] MEDS: PANTOPRAZOLE 40 MG TABLET.DR. PO SCH (12:21)
[2019-09-15] MEDS: amLODIPine BESYLATE 5 MG TABLET PO SCH (12:22)
[2019-09-15] MEDS: tiZANidine 4 MG TABLET. PO SCH ×4 (12:22→20:34)
[2019-09-15] MEDS: ASPIRIN CHEWABLE 81 MG TABLET. PO SCH (12:22)
[2019-09-15] MEDS: NYSTATIN TOPICAL POWDER 15GM BOTTLE. TP SCH ×2 (12:23→20:34)
[2019-09-15] MEDS: LIDOCAINE (700MG/PATCH) PATCH. TP SCH (12:23)
[2019-09-15] MEDS: CEFDINIR 300 MG CAPSULE PO SCH (20:34)
[2019-09-15] MEDS: ATORVASTATIN CALCIUM 40 MG TABLET. PO SCH (20:34)
[2019-09-15] MEDS: PATCH REMOVAL. MC SCH (20:43)
[2019-09-15] MEDS: MORPHINE SULFATE 2 MG/ML VIAL. IV PRN (22:17)
[2019-09-16 03:38] LABS: HEMATOCRIT 30.3 % (36.0-47.0); HEMOGLOBIN 10.1 g/dL (12.0-15.5); RED BLOOD COUNT 3.39 x10^6/uL (3.50-5.40); RED CELL DISTRIBUTION WIDTH 14.1 % (11.5-14.5); WHITE BLOOD COUNT 9.9 x10^3/uL (4.0-11.0)
[2019-09-16 03:57] VITALS: BP 154/67
[2019-09-16 03:58] LABS: CREATININE 2.3 mg/dL (0.6-1.0); GFR 22.9; MAGNESIUM 1.9 mg/dL (1.8-2.4); POTASSIUM 3.4 mmol/L (3.5-5.1)
[2019-09-16] MEDS: hydrALAZINE 25 MG TABLET PO SCH ×3 (05:35→18:00)
[2019-09-16 07:45] VITALS: BP 163/68
[2019-09-16] MEDS: LIDOCAINE (700MG/PATCH) PATCH. TP SCH (07:56)
--- NOTE | 2019-09-16 07:58 | RAD ---
Procedure: Tunneled hemodialysis catheter placement 09/16/2019 5:54 AM Clinical Indication: [facility] Sterility: All elements of maximal sterile barrier technique including the use of a cap, mask, sterile gown, sterile gloves, large sterile sheet, appropriate hand hygiene, and 2% chlorhexidine for cutaneous antisepsis (or acceptable alternative antiseptic per current guidelines) were followed for this procedure. Consent: The procedure was explained in its entirety to the patient or the patients designated loss prevention representative by a member of the treatment team, including a discussion of the risks, benefits and commonly accepted alternatives to the procedure, as well as the expected consequences of no therapy whatsoever. Discussion of the risks included, but was not limited to, those that are most frequent and those that are rare but possibly severe or life-threatening, as well as the possibility of unforeseen complications. Technique and Findings: Following informed consent, a timeout procedure was performed. The patient was prepped and draped in the usual sterile fashion. Ultrasound interrogation of the right neck revealed patency and compressibility of the right internal jugular vein. A 21-gauge micropuncture was then used to gain access to this vein under ultrasound guidance. A hard copy ultrasound image was recorded. The needle was exchanged over a wire for a 4 Faroese sheath which was used to guide an guidewire into the IVC. The skin over the right anterior chest wall was copiously anesthetized with 1% Lidocaine and a small dermatotomy was made. A 23 cm tipped cuff palindrome tunneled hemodialysis catheter was then tunneled subcutaneously towards the neck dermatotomy and deployed through a large caliber peel-away sheath under fluoroscopic guidance such that the distal tip resided in the mid right atrium. Manual flow rates were assessed and found to be within normal limits. The catheter was then flushed, packed with Heparin, capped, and sutured to the skin. The neck dermatotomy was closed with Dermabond. No immediate complications were identified. The left internal jugular temporary dialysis catheter was then removed and manual pressure held. Sterile dressings were applied. Sedation: Conscious sedation was administered for 36 minutes. The patient was monitored by a qualified independent observer throughout the time of sedation. Please refer to the medical record for exact doses of medications utilized to achieve moderate sedation. Fluoroscopy time: 0.8 minutes Dose area product: 5 mccarty centimeters squared Impression: Tunneled hemodialysis catheter placement as described
[2019-09-16] MEDS ORDERED: IV NORMAL SALINE 1000ML BAG 1,000 ML IV PRN ×2 (08:00)
[2019-09-16] MEDS ORDERED: DIALYSIS PATIENT. MC PRN ×2 (08:00)
[2019-09-16] MEDS: MORPHINE SULFATE 2 MG/ML VIAL. IV PRN (08:04)
--- NOTE | 2019-09-16 11:12 | PDOC3 ---
Discharge Summary Visit Information Date of Admission: Sep 08, 2019 Date of Discharge: Sep 16, 2019 Admitting Diagnosis Comment: Acute encephalopathy, etiology undetermined which may be central etiology versus uremia (metabolic) Leukocytosis most likely secondary to hemoconcentration with no focus of infection except for a suspected UTI Hypokalemia Acute renal failure, vasomotor etiology most likely High anion gap metabolic acidosis History of diabetes mellitus type 2 Essential hypertension History of CVA Final Diagnosis Problems Medical Problems: (1) Acute renal failure secondary to acute tubular necrosis Status: Acute (2) Hypotension resolved Status: Acute (3) History of CVA and seizure Status: Acute (4)E coli UTI (urinary tract infection) Status: Acute Brief Hospital Course Allergies Allergies Coded Allergies Type Severity Reaction Last Updated Verified Iodinated Contrast Media Allergy Intermediate 04/22/19 Yes Sulfa (Sulfonamide Antibiotics) Allergy Intermediate 04/22/19 Yes Vital Signs Vital Signs Date Time Temp Pulse Resp B/P (MAP) Pulse Ox O2 Delivery O2 Flow Rate FiO2 09/16/19 08:04 20 94 Room Air 09/16/19 07:45 98.5 62 163/68 (99) 98.5 09/15/19 10:21 2.0 Lab Results Laboratory Tests Test 09/14/19 11:42 09/14/19 15:30 09/14/19 19:38 09/15/19 05:15 Glucose (Fingerstick) 105 mg/dL (70-99) 89 mg/dL (70-99) 114 mg/dL (70-99) White Blood Count 10.7 x10^3/uL (4.0-11.0) Red Blood Count 3.59 x10^6/uL (3.50-5.40) Hemoglobin 10.6 g/dL (12.0-15.5) Hematocrit 31.8 % (36.0-47.0) Mean Corpuscular Volume 89 fL (79-100) Mean Corpuscular Hemoglobin 30 pg (25-35) Mean Corpuscular Hemoglobin Concent 33 g/dL (31-37) Red Cell Distribution Width 14.6 % (11.5-14.5) Platelet Count 212 x10^3/uL (140-400) Prothrombin Time 14.7 SEC (11.7-14.0) Prothromb Time International Ratio 1.2 (0.8-1.1) Sodium Level 142 mmol/L (136-145) Potassium Level 3.4 mmol/L (3.5-5.1) Chloride Level 104 mmol/L (98-107) Carbon Dioxide Level 27 mmol/L (21-32) Anion Gap 11 (6-14) Blood Urea Nitrogen 8 mg/dL (7-20) Creatinine 2.1 mg/dL (0.6-1.0) Estimated GFR (Cockcroft-Gault) 25.5 Glucose Level 102 mg/dL (70-99) Calcium Level 8.0 mg/dL (8.5-10.1) Phosphorus Level 2.4 mg/dL (2.6-4.7) Magnesium Level 1.7 mg/dL (1.8-2.4) Albumin 2.5 g/dL (3.4-5.0) Test 09/15/19 07:29 09/15/19 16:15 09/15/19 20:23 09/16/19 03:10 Glucose (Fingerstick) 90 mg/dL (70-99) 100 mg/dL (70-99) 100 mg/dL (70-99) White Blood Count 9.9 x10^3/uL (4.0-11.0) Red Blood Count 3.39 x10^6/uL (3.50-5.40) Hemoglobin 10.1 g/dL (12.0-15.5) Hematocrit 30.3 % (36.0-47.0) Mean Corpuscular Volume 90 fL (79-100) Mean Corpuscular Hemoglobin 30 pg (25-35) Mean Corpuscular Hemoglobin Concent 33 g/dL (31-37) Red Cell Distribution Width 14.1 % (11.5-14.5) Platelet Count 209 x10^3/uL (140-400) Sodium Level 142 mmol/L (136-145) Potassium Level 3.4 mmol/L (3.5-5.1) Chloride Level 106 mmol/L (98-107) Carbon Dioxide Level 26 mmol/L (21-32) Anion Gap 10 (6-14) Blood Urea Nitrogen 12 mg/dL (7-20) Creatinine 2.3 mg/dL (0.6-1.0) Estimated GFR (Cockcroft-Gault) 22.9 Glucose Level 103 mg/dL (70-99) Calcium Level 8.0 mg/dL (8.5-10.1) Phosphorus Level 4.0 mg/dL (2.6-4.7) Magnesium Level 1.9 mg/dL (1.8-2.4) Test 09/16/19 07:17 Glucose (Fingerstick) 93 mg/dL (70-99) Laboratory Tests Test 09/15/19 16:15 09/15/19 20:23 09/16/19 03:10 09/16/19 07:17 Glucose (Fingerstick) 100 mg/dL (70-99) 100 mg/dL (70-99) 93 mg/dL (70-99) White Blood Count 9.9 x10^3/uL (4.0-11.0) Red Blood Count 3.39 x10^6/uL (3.50-5.40) Hemoglobin 10.1 g/dL (12.0-15.5) Hematocrit 30.3 % (36.0-47.0) Mean Corpuscular Volume 90 fL (79-100) Mean Corpuscular Hemoglobin 30 pg (25-35) Mean Corpuscular Hemoglobin Concent 33 g/dL (31-37) Red Cell Distribution Width 14.1 % (11.5-14.5) Platelet Count 209 x10^3/uL (140-400) Sodium Level 142 mmol/L (136-145) Potassium Level 3.4 mmol/L (3.5-5.1) Chloride Level 106 mmol/L (98-107) Carbon Dioxide Level 26 mmol/L (21-32) Anion Gap 10 (6-14) Blood Urea Nitrogen 12 mg/dL (7-20) Creatinine 2.3 mg/dL (0.6-1.0) Estimated GFR (Cockcroft-Gault) 22.9 Glucose Level 103 mg/dL (70-99) Calcium Level 8.0 mg/dL (8.5-10.1) Phosphorus Level 4.0 mg/dL (2.6-4.7) Magnesium Level 1.9 mg/dL (1.8-2.4) Brief Hospital Course Ms. Bush is a 44 old female who presented with encephalopathy which was a combination of toxic encephalopathy secondary to a repeat E. coli UTI and also secondary to her uremia from acute renal failure. The patient was started on hemodialysis while inpatient and she has tolerated her treatments well. She received treatment for her E. coli UTI while inpatient initially with broad- spectrum antibiotics with Zosyn and once her cultures were reported she was transitioned to cefdinir. As far as her glycemia goes the patient was before this hospital stay on metformin and this will be stopped in light of her current renal dysfunction. She will be transferred to LTAC given that probably will not be able to care for the patient at the present time given his multiple comorbidities and significant need for support Greater than 35 minutes were spent in the discharge present the patient in counseling coordination of care and arrangement for a safe discharge 09/08: No acute events reported overnight, case discussed with nursing staff patient in no acute distress no complaints during my visit, patient still non verbal results of her CT of the head reviewed and found negative, labs noted 09/09: Patient continues to be pretty much the same seems to be a little bit more responsive today compared to yesterday she responds to her name no acute events reported overnight tolerating hemodialysis well this may well be metabolic encephalopathy hopefully with correction of her electrolytes she may be coming out of her stupor. Case management requesting COVID testing first and under investigation for placement 09/10: No acute events reported overnight, case discussed with nursing staff patient in no acute distress no complaints during my visit her altered mental status seems to be related to uremia, will continue to follow monitor daily basis electrolyte disturbance noted which can be corrected during dialysis 09/11: No acute events reported overnight, case discussed with nursing staff patient in no acute distress no complaints during my visit, patient seems to be back at baseline encephalopathy most likely due to uremia, will continue with dialysis as per [employer] consultant. Electrolyte disturbance noted 09/12: Patient much more awake today and seems to be interacting more and more, laboratory data has been reviewed. Plan of care explained in detail reassurance has been provided 09/13: Patient's numbers are improving nevertheless her urinary output is still marginal. Case discussed with Dr. Coles we will start the process of arranging for outpatient dialysis Covid test will be requested 09/14: Patient underwent a tunneled catheter by interventional radiology today patient continues to be somewhat confused which seems to be her baseline given her history of CVA. Urine output is up to 900 cc per 24 hours which is better than the day before 09/15: Transferring to LTAC Assessment Assessment GEN.: No apparent distress. Alert difficult to assess if she is oriented but responds to her name HEENT: Head is normocephalic, atraumatic NECK: Supple. LUNGS: Clear to auscultation. HEART: RRR, S1, S2 present. Peripheral pulses intact ABDOMEN: Soft, nontender. Positive bowel sounds. EXTREMITIES: Without any cyanosis. NEUROLOGIC: Cranial nerves II to XII seem to be grossly intact patient is moving all extremities PSYCHIATRIC: Unable to evaluate SKIN: No ulcerations Discharge Information Condition at Discharge: Improved Follow Up: Weeks Disposition/Orders: D/C to Another Facility Scheduled Amlodipine Besylate (Amlodipine Besylate) 5 Mg Tablet, 5 MG PO DAILY for CVA prevention, (Reported) Entered as Reported by: JENNY HILLIARD on 09/08/19516 Last Action: Continued on 09/09/19749 by JAYNE MILLAN MD Aspirin (Aspirin) 81 Mg Tab.chew, 1 TAB PO DAILY for CVA prevention, #30 Ref 3 (Reported) Entered as Reported by: JENNY HILLIARD on 09/08/19516 Last Action: Continued on 09/09/19749 by JAYNE MILLAN MD Atorvastatin Calcium (Atorvastatin Calcium) 40 Mg Tablet, 40 MG PO QHS for lipids, #60 Prescribed by: KOLE HUGO on 05/04/19 0908 Last Taken: Unknown Dose on 09/07/19 Last Action: Continued on 09/09/19749 by JAYNE MILLAN MD Carvedilol (Carvedilol) 25 Mg Tablet, 25 MG PO BIDWMEALS for hyperlipidemia, (Reported) Entered as Reported by: JENNY HILLIARD on 09/08/19516 Last Action: Converted on 09/09/19749 by JAYNE MILLAN MD Cholecalciferol (Vitamin D3) (D3-50) 50,000 Unit Capsule, 1,000 UNIT PO DAILY for replacement, (Reported) Entered as Reported by: JENNY HILLIARD on 09/08/19516 Last Action: HELD on 09/09/19 0749 by JAYNE MILLAN MD Escitalopram Oxalate (Escitalopram Oxalate) 10 Mg Tablet, 10 MG PO DAILY for ANTI-DEPRESSANT, #30 Ref 0 (Reported) Entered as Reported by: LAURIE QUINTANA RN on 07/31/19 1413 Last Taken: Unknown Dose on 09/07/19 Last Action: Converted on 09/09/19749 by JAYNE MILLAN MD Gabapentin (Gabapentin) 800 Mg Tablet, 800 MG PO TID for cramp and spasm, (Reported) Entered as Reported by: JENNY HILLIARD on 09/08/19516 Last Action: Converted on 09/09/19749 by JAYNE MILLAN MD Hydralazine Hcl (Hydralazine Hcl) 25 Mg Tablet, 25 MG PO Q6HRS for htn for 60 Days, #240 Prescribed by: KOLE HUGO on 05/04/19 0908 Last Taken: Unknown Dose on 09/07/19 Last Action: Continued on 09/09/19749 by JAYNE MILLAN MD Hydrocortisone (Hydrocortisone) 453.6 Gm Cream..g., 1 JOSE TP PRN Q6HRS for hemorrhoids, #30 (Reported) Entered as Reported by: JENNY HILLIARD on 09/08/19516 Last Action: Converted on 09/09/19749 by JAYNE MILLAN MD Lidocaine (Lidocaine PATCH ) 1 Each Adh..patch, 1 EACH TP DAILY for FOR LOCAL PAIN, (Reported) REMOVE AFTER 12 HOURS Entered as Reported by: JENNY HILLIARD on 09/08/19516 Last Action: Continued on 09/09/19749 by JAYNE MILLAN MD Loperamide Hcl (Loperamide) 2 Mg Tablet, 2 MG PO PRN Q4HRS for diarrhea, (Reported) Entered as Reported by: JENNY HILLIARD on 09/08/19516 Last Action: HELD on 09/09/19 0749 by JAYNE MILLAN MD Melatonin (Melatonin) 1 Mg Tablet, 1 TAB PO QHS for sleep for 30 Days, #30 Ref 0 (Reported) Entered as Reported by: JENNY HILLIARD on 09/08/19516 Last Action: Converted on 09/09/19749 by JAYNE MILLAN MD Pantoprazole Sodium (Protonix ) 40 Mg Tablet.dr, 40 MG PO DAILYAC for GERD, (Reported) Entered as Reported by: LAURIE QUINTANA RN on 07/31/19 1413 Last Taken: Unknown Dose on 09/07/19 Last Action: Continued on 09/09/19749 by JAYNE MILLAN MD Tizanidine Hcl (Tizanidine Hcl) 4 Mg Tablet, 2 TAB PO QID for cramp and spams, #60 (Reported) Entered as Reported by: JENNY HILLIARD on 09/08/19516 Last Action: Continued on 09/09/19749 by JAYNE MILLAN MD Topiramate (Topiramate) 25 Mg Tablet, 3 TAB PO BID for seizures for 30 Days, #180 Ref 0 (Reported) Entered as Reported by: JENNY HILLIARD on 09/08/19516 Last Action: HELD on 09/09/19748 by JAYNE MILLAN MD Scheduled PRN Acetaminophen (Acetaminophen) 500 Mg Tablet, 1,000 MG PO PRN Q4HRS PRN for PAIN, (Reported) Entered as Reported by: JENNY HILLIARD on 09/08/19516 Last Action: HELD on 09/09/19748 by JAYNE MILLAN MD Ondansetron Hcl (Zofran) 4 Mg Tablet, 1 TAB PO PRN Q6HRS PRN for NAUSEA, #20 (Reported) Entered as Reported by: JENNY HILLIARD on 09/08/19516 Last Action: HELD on 09/09/19748 by JAYNE MILLAN MD Discontinued Medications Lisinopril (Zestril) 40 Mg Tablet, 40 MG PO DAILY for HTN, (Reported) Entered as Reported by: FELICIA WRIGHT on 04/15/19 1730 Last Taken: Unknown Dose on 09/07/19 Last Action: HELD on 09/09/19748 by JAYNE MILLAN MD Metformin Hcl (Metformin Hcl Er) 750 Mg Tab.er.24h, 1 TAB PO BID for DM for 30 Days, #60 Ref 0 (Reported) Entered as Reported by: LAURIE QUINTANA, RN on 07/31/19 1413 Last Taken: Unknown Dose on 09/07/19 Last Action: HELD on 09/09/19748 by JAYNE MILLAN MD Justicifation of Admission Dx: Justifications for Admission: Justification of Admission Dx: Yes Sepsis: Hemodynamic Instability JAYNE MILLAN MD Sep 16, 2019 11:12
--- NOTE | 2019-09-16 11:54 | PDOC ---
Renal-Progress Notes Subjective Notes Notes LESS CONFUSED History of Present Illness Hx of present illness STABLE Vitals Vitals Vital Signs Date Time Temp Pulse Resp B/P (MAP) Pulse Ox O2 Delivery O2 Flow Rate FiO2 09/16/19 08:04 20 94 Room Air 09/16/19 07:45 98.5 62 163/68 (99) 98.5 09/15/19 10:21 2.0 Weight Weight [ ] I.O. Intake and Output Intake and Output 09/16/19 07:00 Intake Total 300 ml Output Total 1400 ml Balance -1100 ml Intake Oral 300 ml Output Urine Total 1400 ml # Bowel Movements 2 Labs Labs Laboratory Tests Test 09/15/19 16:15 09/15/19 20:23 09/16/19 03:10 09/16/19 07:17 Glucose (Fingerstick) 100 mg/dL (70-99) 100 mg/dL (70-99) 93 mg/dL (70-99) White Blood Count 9.9 x10^3/uL (4.0-11.0) Red Blood Count 3.39 x10^6/uL (3.50-5.40) Hemoglobin 10.1 g/dL (12.0-15.5) Hematocrit 30.3 % (36.0-47.0) Mean Corpuscular Volume 90 fL (79-100) Mean Corpuscular Hemoglobin 30 pg (25-35) Mean Corpuscular Hemoglobin Concent 33 g/dL (31-37) Red Cell Distribution Width 14.1 % (11.5-14.5) Platelet Count 209 x10^3/uL (140-400) Sodium Level 142 mmol/L (136-145) Potassium Level 3.4 mmol/L (3.5-5.1) Chloride Level 106 mmol/L (98-107) Carbon Dioxide Level 26 mmol/L (21-32) Anion Gap 10 (6-14) Blood Urea Nitrogen 12 mg/dL (7-20) Creatinine 2.3 mg/dL (0.6-1.0) Estimated GFR (Cockcroft-Gault) 22.9 Glucose Level 103 mg/dL (70-99) Calcium Level 8.0 mg/dL (8.5-10.1) Phosphorus Level 4.0 mg/dL (2.6-4.7) Magnesium Level 1.9 mg/dL (1.8-2.4) Micro Micro Microbiology 09/09/19 Blood Culture - Final, Complete NO GROWTH AFTER 5 DAYS 09/08/19 Urine Culture - Final, Complete 09/08/19 Antimicrobic Susceptibility - Final, Complete Review of Systems Constitutional: yes: alert Ears/Nose/Throat: Yes: no symptom reported Eyes: Yes: no symptom reported Pulmonary: Yes no symptom reported Gastrointestional: Yes: constipation Musculoskeletal: Yes: muscle stiffness Skin: Yes no symptom reported Psychiatric/Neurological: Yes: no symptom reported Physical Exam General Appearance: no apparent distress Skin: warm Respiratory: decreased breath sounds Heart: S1S2 Abdomen: soft, bowel sounds present Genitourinary: bladder flat Extremities: pulses present Neurology: alert Musculoskeletal: Osteoarthritis, Other Assessment Assessment IMP HYPOKALEMIA-BETTER LESLIE-NO CLEARANCE-NO CKD ATN-UO IMPROVING MET ACIDOSIS-BETTER LOW MAG AND PO4 LEUCOCYTOSIS UTI HX CVA DM OBESITY MET ENCEPHALOPATHY PLAN ANTIBIOTICS LOOK FOR RENAL RECOVERY HD TODAY MINIMAL UF REPLACE MAG AND PO4 NEEDED CONT SALINE WILL ASK IR TO CONVERT TO TUNNELED HD CATHETER ANTICIPATE SHE WILL NEED HD FOR A WHILE LTAC PENDING POSS TO SS D/W ATTENDING ZHANG MCDOWELL MD Sep 16, 2019 11:54
[2019-09-16] MEDS: tiZANidine 4 MG TABLET. PO SCH ×3 (13:00→17:00)
--- NOTE | 2019-09-16 15:27 | SNU/HH DC ---
DISCHARGE ORDERS DISCHARGE INFORMATION: DISCHARGE DATE: Sep 16, 2019 FINAL DIAGNOSIS Problems Medical Problems: (1) Acute kidney failure Status: Acute (2) Hypotension Status: Acute (3) Severe dehydration Status: Acute (4) UTI (urinary tract infection) Status: Acute CONDITION ON DISCHARGE: Stable CODE STATUS: Code Status: Full LONG-TERM: SNF STAY <30 DAYS: Yes LTAC: ADMIT TO LTAC: Yes POST DISCHARGE ORDERS: ACTIVITY ORDERS: Activity as tolerated WEIGHT BEARING STATUS: As tolerated DIET AFTER DISCHARGE: ADA WOUND/INCISION CARE: No wound care needed CHECKS AFTER DISCHARGE: CHECKS AFTER DISCHARGE: Check blood press - daily, Check blood sugar, ac/hs TREATMENT/EQUIPMENT ORDERS: ADAPTIVE EQUIPMENT NEEDED: Brace/splint Physical Therapy For: Evalulation/Treatment Occupational Therapy For: Evaluation/Treatment Speech Language Pathology For: Swallow Cognition DISCHARGE MEDICATIONS: Home Meds Active Scripts Hydralazine Hcl (HYDRALAZINE HCL) 25 Mg Tablet, 25 MG PO Q6HRS for htn for 60 Days, #240 TAB Prov:KOLE HUGO MD 05/04/19 Atorvastatin Calcium (ATORVASTATIN CALCIUM) 40 Mg Tablet, 40 MG PO QHS for l ipids, #60 TAB Prov:KOLE HUGO MD 05/04/19 Reported Medications Ondansetron Hcl (ZOFRAN) 4 Mg Tablet, 1 TAB PO PRN Q6HRS PRN for NAUSEA, #20 TAB 6/2/20 Topiramate (TOPIRAMATE) 25 Mg Tablet, 3 TAB PO BID for seizures for 30 Days, #180 TAB 0 Refills 20 Tizanidine Hcl (TIZANIDINE HCL) 4 Mg Tablet, 2 TAB PO QID for cramp and spams, #60 TAB 6/2/20 Gabapentin (GABAPENTIN) 800 Mg Tablet, 800 MG PO TID for cramp and spasm, TAB /2/20 Melatonin (MELATONIN) 1 Mg Tablet, 1 TAB PO QHS for sleep for 30 Days, #30 TAB 0 Refills 20 Loperamide Hcl (LOPERAMIDE) 2 Mg Tablet, 2 MG PO PRN Q4HRS for diarrhea, TAB 20 Lidocaine (Lidocaine PATCH ) 1 Each Adh..patch, 1 EACH TP DAILY for FOR LOCAL PAIN, PATCH REMOVE AFTER 12 HOURS 09/08/19 Hydrocortisone (HYDROCORTISONE) 453.6 Gm Cream..g., 1 JOSE TP PRN Q6HRS for hemorrhoids, #30 GM 09/08/19 Cholecalciferol (Vitamin D3) (D3-50) 50,000 Unit Capsule, 1000 UNIT PO DAILY for replacement, CAP 09/08/19 Carvedilol (CARVEDILOL) 25 Mg Tablet, 25 MG PO BIDWMEALS for hyperlipidemia, TAB 09/08/19 Aspirin (ASPIRIN) 81 Mg Tab.chew, 1 TAB PO DAILY for CVA prevention, #30 TAB 3 Refills 09/08/19 Amlodipine Besylate (AMLODIPINE BESYLATE) 5 Mg Tablet, 5 MG PO DAILY for CVA prevention, TAB 09/08/19 Acetaminophen (ACETAMINOPHEN) 500 Mg Tablet, 1000 MG PO PRN Q4HRS PRN for PAIN, TAB 09/08/19 Escitalopram Oxalate (ESCITALOPRAM OXALATE) 10 Mg Tablet, 10 MG PO DAILY for ANTI-DEPRESSANT, #30 TAB 0 Refills 07/31/19 Pantoprazole Sodium (PROTONIX ) 40 Mg Tablet.dr, 40 MG PO DAILYAC for GERD, TAB 07/31/19 Discontinued Reported Medications Metformin Hcl (METFORMIN HCL ER) 750 Mg Tab.er.24h, 1 TAB PO BID for DM for 30 Days, #60 TAB 0 Refills 07/31/19 Lisinopril (Zestril) 40 Mg Tablet, 40 MG PO DAILY for HTN, TAB 04/15/19 JAYNE MILLAN MD Sep 16, 2019 15:27
[2019-09-16 15:44] VITALS: BP 177/95
[2019-09-16] MEDS: GABAPENTIN 400 MG CAPSULE. PO SCH (16:33)
[2019-09-16] MEDS: PANTOPRAZOLE 40 MG TABLET.DR. PO SCH (16:33)
[2019-09-16] MEDS: CITALOPRAM 20 MG TABLET. PO SCH (16:34)
[2019-09-16] MEDS: CARVEDILOL 12.5 MG TABLET. PO SCH ×2 (16:34→17:00)
[2019-09-16] MEDS: ASPIRIN CHEWABLE 81 MG TABLET. PO SCH (16:34)
[2019-09-16] MEDS: NYSTATIN TOPICAL POWDER 15GM BOTTLE. TP SCH (16:35)
[2019-09-16] MEDS: amLODIPine BESYLATE 5 MG TABLET PO SCH (16:35)
[2019-09-16 18:00] VITALS: BP 177/95
--- NOTE | 2019-09-16 19:09 | NUR ---
[facility] HERE TO TRANSPORT PATIENT TO [facility], PATIENT ASSISTED OVER TO [facility] PER 2 PERSON ASSIST AND STRAPPED IN, ALL PERSONAL BELONGINGS GATHERED AND PLACED IN BAGS FOR DISCHARGE PER THIS FOURTH HAND, PATIENT WEARING HER EYEGLASSES AT THIS TIME, PER REQUEST OF RECEIVING NURSE THIS FOURTH HAND DID NOT REMOVE SALINE LOCK IN LEFT FOREARM OR ANDREWS CATHETER, EMOTIONAL SUPPORT GIVEN TO PATIENT SHE LEAVES THE UNIT.
== END 2019-09-16 19:13 | DRG 689 ==
LOC: ER 23:20 → 6 SOUTH 09-08 02:04
PROVIDERS: ADMIT Family Medicine; ATTEND Family Medicine
PROC: 5A1D70Z Performance of Urinary Filtration, Intermittent, Less than 6 Hours Per Day (ICD-10-PCS; 2019-09-09)
PROC: 02H633Z Insertion of Infusion Device into Right Atrium, Percutaneous Approach (ICD-10-PCS; 2019-09-09)
PROC: B5181ZA Fluoroscopy of Superior Vena Cava using Low Osmolar Contrast, Guidance (ICD-10-PCS; 2019-09-09)
PROC: B548ZZA Ultrasonography of Superior Vena Cava, Guidance (ICD-10-PCS; 2019-09-09)
PROC: 5A1D70Z Performance of Urinary Filtration, Intermittent, Less than 6 Hours Per Day (ICD-10-PCS; 2019-09-10)
PROC: 5A1D70Z Performance of Urinary Filtration, Intermittent, Less than 6 Hours Per Day (ICD-10-PCS; 2019-09-12)
PROC: 5A1D70Z Performance of Urinary Filtration, Intermittent, Less than 6 Hours Per Day (ICD-10-PCS; 2019-09-14)
PROC: 5A1D70Z Performance of Urinary Filtration, Intermittent, Less than 6 Hours Per Day (ICD-10-PCS; principal; 2019-09-16)
PROC: 0JH63XZ Insertion of Tunneled Vascular Access Device into Chest Subcutaneous Tissue and Fascia, Percutaneous Approach (ICD-10-PCS; 2019-09-16)
PROC: B548ZZA Ultrasonography of Superior Vena Cava, Guidance (ICD-10-PCS; 2019-09-16)
PROC: 02H633Z Insertion of Infusion Device into Right Atrium, Percutaneous Approach (ICD-10-PCS; 2019-09-16)
PROC: B5181ZA Fluoroscopy of Superior Vena Cava using Low Osmolar Contrast, Guidance (ICD-10-PCS; 2019-09-16)
DX: N39.0 Urinary tract infection, site not specified (principal); N17.0 Acute kidney failure with tubular necrosis; G93.41 Metabolic encephalopathy; E87.2 Acidosis; Z68.41 Body mass index [BMI] 40.0-44.9, adult; B96.20 Unspecified Escherichia coli [E. coli] as the cause of diseases classified elsewhere; E66.9 Obesity, unspecified; E11.9 Type 2 diabetes mellitus without complications; E78.00 Pure hypercholesterolemia, unspecified; E78.5 Hyperlipidemia, unspecified; I95.9 Hypotension, unspecified; E86.0 Dehydration; E86.1 Hypovolemia; E87.6 Hypokalemia; F32.9 Major depressive disorder, single episode, unspecified; G93.89 Other specified disorders of brain; I10 Essential (primary) hypertension; R29.810 Facial weakness; Z82.49 Family history of ischemic heart disease and other diseases of the circulatory system; Z86.73 Personal history of transient ischemic attack (TIA), and cerebral infarction without residual deficits; Z87.891 Personal history of nicotine dependence; Z90.710 Acquired absence of both cervix and uterus; Z96.659 Presence of unspecified artificial knee joint; K21.9 Gastro-esophageal reflux disease without esophagitis; M19.90 Unspecified osteoarthritis, unspecified site; Z20.828 Contact with and (suspected) exposure to other viral communicable diseases; Z88.8 Allergy status to other drugs, medicaments and biological substances
CPT/HCPCS: 36415; 36556; 36558; 36600; 70450; 76770; 76937; 77001; 80048; 80053; 80069; 81001; 82436; 82550; 82570; 82805; 82962; 83605; 83735; 84100; 84132; 84133; 84300; 84484; 85007; 85025; 85027; 85610; 86317; 86704; 87040; 87086; 87340; 93005; 96361; 96365; 96375; 99152; 99153; 99285; C1750; C1769; C1892; J0360; J0610; J0696; J2250; J2270; J2543; J3010; J3475; J3480; J3490; J7030; J7050; J7060; 92526-GN; 92610-GN; 97110-GO; 97530-GO; 97530-GP; 97535-GO; G0378; U0003-CS

== ENCOUNTER 2019-12-14 11:46 | Emergency (ER) | payer BC, OTHER ==
[~2019-12-14] VITALS: Ht 162.6 cm; Wt 136.3 kg
[~2019-12-14 11:46] MED LIST changes: +ACET500T68 PO; +AMLO5TAB10 PO; +ASPI-630 PO; +CARV25TA2 PO; +CHOL500021 PO; +GABA800T5 PO; +HYDR453.3 TP; +LIDO700A21 TP; +LOPE2TAB27 PO; +MELA1TAB9 PO; +ONDA4TAB7 PO; +TIZA4TAB2 PO; +TOPI25TA7 PO
[2019-12-14 13:09] LABS: BASO % 1 % (0-3); EOS # 0.7 x10^3/uL (0.0-0.7); EOS % 8 % (0-3); HEMATOCRIT 37.4 % (36.0-47.0); HEMOGLOBIN 12.3 g/dL (12.0-15.5); LYMPH # 2.1 x10^3/uL (1.0-4.8); LYMPH % 26 % (24-48); MEAN CORPUSCULAR HEMOGLOBIN 29 pg (25-35); MEAN CORPUSCULAR HGB CONC 33 g/dL (31-37); MEAN CORPUSCULAR VOLUME 89 fL (79-100); MONO # 0.7 x10^3/uL (0.0-1.1); MONO % 9 % (0-9); NEUT # 4.6 x10^3/uL (1.8-7.7); NEUT % 56 % (31-73); PLATELET COUNT 221 x10^3/uL (140-400); RED BLOOD COUNT 4.23 x10^6/uL (3.50-5.40); RED CELL DISTRIBUTION WIDTH 14.1 % (11.5-14.5); WHITE BLOOD COUNT 8.1 x10^3/uL (4.0-11.0)
--- NOTE | 2019-12-14 13:13 | RAD ---
CT head without contrast 12/14/2019. Reason for exam: Headache and right-sided blurry vision. Noncontrast images were performed. Exposure: One or more of the following individualized dose reduction techniques were utilized for this examination: 1. Automated exposure control 2. Adjustment of the mA and/or kV according to patient size 3. Use of iterative reconstruction technique. Comparison is made with a study of 09/08/2019. FINDINGS: There is no apparent intracranial mass, hemorrhage or abnormal extra-axial fluid collection. An area of encephalomalacia is again shown extending into the right frontal lobe. Allowing for difference in slice positioning and angulation, no new area of abnormal density is identified. The ventricles and basilar cisterns are normally positioned. Sinuses and mastoid air cells appear clear. IMPRESSION: No apparent acute intracranial abnormality. Electronically signed by: Peterson Marte Jr., MD (12/14/2019 1:10 PM) [facility]
[2019-12-14 13:17] LABS: CALCIUM 8.8 mg/dL (8.5-10.1); CREATININE 0.9 mg/dL (0.6-1.0); GFR 67.7; POTASSIUM 3.5 mmol/L (3.5-5.1)
[2019-12-14 13:23] LABS: ALBUMIN/GLOBULIN RATIO 0.8 (1.0-1.7); MAGNESIUM 1.5 mg/dL (1.8-2.4); TOTAL BILIRUBIN 0.2 mg/dL (0.2-1.0); TOTAL PROTEIN 6.8 g/dL (6.4-8.2)
[2019-12-14 13:33] LABS: BILIRUBIN,URINE NEGATIVE (NEG); CLARITY,URINE CLEAR; COLOR,URINE YELLOW; NITRITE,URINE POSITIVE (NEG); PH,URINE 5.5 (<5.0-8.0); PROTEIN,URINE NEGATIVE (NEG-TRACE); UROBILINOGEN,URINE 0.2 mg/dL (0.2 mg/dL)
[2019-12-14 13:47] LABS: BACTERIA,URINE MANY /HPF (0-FEW); RBC,URINE 0 /HPF (0-2); SQUAMOUS EPITHELIAL CELL,UR MOD /LPF; WBC,URINE TNTC /HPF (0-4)
[2019-12-14] MEDS ORDERED: MAGNESIUM SULFATE 2GM 50 ML IV ONE (14:00)
[2019-12-14] MEDS ORDERED: cefTRIAXone IV Push 1 GM VIAL. IVP ONE (14:15)
--- NOTE | 2019-12-14 14:57 | PHYS DOC ---
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 Patient woke up this morning with a headache, denies any cough or fever denies any chest pain any abdominal pain, no nausea vomiting. Patient also complained of pain with urination. Review of Systems: Review of Systems: Constitutional: Denies fever or chills. [] Eyes: Positive for right eye blurry vision HENT: Denies nasal congestion or sore throat. [] Respiratory: Denies cough or shortness of breath. [] Cardiovascular: Denies chest pain or edema. [] GI: Denies abdominal pain, nausea, vomiting, bloody stools or diarrhea. [] : Positive for pain with urination. Musculoskeletal: Denies back pain or joint pain. [] Integument: Denies rash. [] Neurologic: Positive for headache Endocrine: Denies polyuria or polydipsia. [] Lymphatic: Denies swollen glands. [] Psychiatric: Denies depression or anxiety. [] Heart Score: Risk Factors: Risk Factors: DM, Current or recent (<one month) smoker, HTN, HLP, family history of CAD, obesity. Risk Scores: Score 0 - 3: 2.5% MACE over next 6 weeks - Discharge Home Score 4 - 6: 20.3% MACE over next 6 weeks - Admit for Clinical Observation Score 7 - 10: 72.7% MACE over next 6 weeks - Early Invasive Strategies Current Medications: Current Medications Medications (Trade) Dose Ordered Sig/Jace Start Time Stop Time Status Last Admin Dose Admin Ceftriaxone Sodium (Rocephin) 1 gm 1X ONCE 12/14/19 14:15 12/14/19 14:37 DC 12/14/19 14:42 1 GM Magnesium Sulfate 50 ml @ 25 mls/hr 1X ONCE 12/14/19 14:00 12/14/19 15:59 12/14/19 14:42 25 MLS/HR Allergies: Allergies: Allergies Coded Allergies Type Severity Reaction Last Updated Verified Iodinated Contrast Media Allergy Intermediate 04/22/19 Yes Sulfa (Sulfonamide Antibiotics) Allergy Intermediate 04/22/19 Yes Physical Exam: PE: Constitutional: Well developed, well nourished, no acute distress, non-toxic appearance. [] HENT: Normocephalic, atraumatic, bilateral external ears normal, oropharynx moist, no oral exudates, nose normal. [] Eyes: PERRLA, EOMI, conjunctiva normal, no discharge. [] Neck: Normal range of motion, no tenderness, supple, no stridor. [] Cardiovascular:Heart rate regular rhythm, no murmur [] Lungs & Thorax: Bilateral breath sounds clear to auscultation [] Abdomen: Bowel sounds normal, soft, no tenderness, no masses, no pulsatile masses. [] Skin: Warm, dry, no erythema, no rash. [] Back: No tenderness, no CVA tenderness. [] Extremities: No tenderness, no cyanosis, no clubbing, ROM intact, no edema. [] Neurologic: Alert and oriented X 3, patient can move her right side without any problem, left side paralyzed chronically. Psychologic: Affect normal, judgement normal, mood normal. [] Current Patient Data: Labs: Laboratory Tests Test 12/14/19 12:06 12/14/19 12:30 12/14/19 12:55 Glucose (Fingerstick) 80 mg/dL (70-99) Urine Collection Type U cath Urine Color Yellow Urine Clarity Clear Urine pH 5.5 (<5.0-8.0) Urine Specific [place] 1.020 (1.000-1.030) Urine Protein Negative mg/dL (NEG-TRACE) Urine Glucose (UA) Negative mg/dL (NEG) Urine Ketones (Stick) Negative mg/dL (NEG) Urine Blood Negative (NEG) Urine Nitrite Positive (NEG) Urine Bilirubin Negative (NEG) Urine Urobilinogen Dipstick 0.2 mg/dL (0.2 mg/dL) Urine Leukocyte Esterase Large (NEG) Urine RBC 0 /HPF (0-2) Urine WBC Tntc /HPF (0-4) Urine Squamous Epithelial Cells Mod /LPF Urine Bacteria Many /HPF (0-FEW) White Blood Count 8.1 x10^3/uL (4.0-11.0) Red Blood Count 4.23 x10^6/uL (3.50-5.40) Hemoglobin 12.3 g/dL (12.0-15.5) Hematocrit 37.4 % (36.0-47.0) Mean Corpuscular Volume 89 fL (79-100) Mean Corpuscular Hemoglobin 29 pg (25-35) Mean Corpuscular Hemoglobin Concent 33 g/dL (31-37) Red Cell Distribution Width 14.1 % (11.5-14.5) Platelet Count 221 x10^3/uL (140-400) Neutrophils (%) (Auto) 56 % (31-73) Lymphocytes (%) (Auto) 26 % (24-48) Monocytes (%) (Auto) 9 % (0-9) Eosinophils (%) (Auto) 8 % (0-3) H Basophils (%) (Auto) 1 % (0-3) Neutrophils # (Auto) 4.6 x10^3/uL (1.8-7.7) Lymphocytes # (Auto) 2.1 x10^3/uL (1.0-4.8) Monocytes # (Auto) 0.7 x10^3/uL (0.0-1.1) Eosinophils # (Auto) 0.7 x10^3/uL (0.0-0.7) Basophils # (Auto) 0.0 x10^3/uL (0.0-0.2) Sodium Level 142 mmol/L (136-145) Potassium Level 3.5 mmol/L (3.5-5.1) Chloride Level 106 mmol/L (98-107) Carbon Dioxide Level 26 mmol/L (21-32) Anion Gap 10 (6-14) Blood Urea Nitrogen 16 mg/dL (7-20) Creatinine 0.9 mg/dL (0.6-1.0) Estimated GFR (Cockcroft-Gault) 67.7 BUN/Creatinine Ratio 18 (6-20) Glucose Level 90 mg/dL (70-99) Calcium Level 8.8 mg/dL (8.5-10.1) Magnesium Level 1.5 mg/dL (1.8-2.4) L Total Bilirubin 0.2 mg/dL (0.2-1.0) Aspartate Amino Transferase (AST) 13 U/L (15-37) L Alanine Aminotransferase (ALT) 19 U/L (14-59) Alkaline Phosphatase 169 U/L (46-116) H Troponin I Quantitative < 0.017 ng/mL (0.000-0.055) Total Protein 6.8 g/dL (6.4-8.2) Albumin 3.0 g/dL (3.4-5.0) L Albumin/Globulin Ratio 0.8 (1.0-1.7) L Laboratory Tests 12/14/19 12:55 Laboratory Tests 12/14/19 12:55 Vital Signs: Vital Signs Date Time Temp Pulse Resp B/P (MAP) Pulse Ox O2 Delivery O2 Flow Rate FiO2 12/14/19 11:46 97.9 65 20 152/74 (100) 98 Room Air 97.9 EKG: EKG: [] Radiology/Procedures: Radiology/Procedures: [][facility] [address] [place], [place] [id number] IMAGING REPORT Signed PATIENT: ARNOL DUMONT LACCOUNT: [id number] : 1975 LOCATION: ER AGE: 44 SEX: F EXAM STATUS: REG ER ORD. PHYSICIAN: RAINER EAST DO REASON: HEADACHE, RIGHT SIDE BLURRY VISION PROCEDURE: CT HEAD WO CONTRAST CT head without contrast 12/14/2019. Reason for exam: Headache and right-sided blurry vision. Noncontrast images were performed. Exposure: One or more of the following individualized dose reduction techniques were utilized for this examination: 1. Automated exposure control 2. Adjustment of the mA and/or kV according to patient size 3. Use of iterative reconstruction technique. Comparison is made with a study of 09/08/2019. FINDINGS: There is no apparent intracranial mass, hemorrhage or abnormal extra-axial fluid collection. An area of encephalomalacia is again shown extending into the right frontal lobe. Allowing for difference in slice positioning and angulation, no new area of abnormal density is identified. The ventricles and basilar cisterns are normally positioned. Sinuses and mastoid air cells appear clear. IMPRESSION: No apparent acute intracranial abnormality. Electronically signed by: Nithya Marte Jr., MD (12/14/2019 1:10 PM) [facility] DICTATED and SIGNED BY: NITHYA MARTE Jr, MD DATE: 12/14/19 1310 Course & Med Decision Making: Course & Med Decision Making Pertinent Labs and Imaging studies reviewed. (See chart for details) Patient is a 44-year-old female who was brought here due to headache, with blurry vision, pain with urination. Patient was found to have acute UTI, she was given Rocephin 1 g IV in the ER, she will be discharged home with a prescription for Cipro. Patient also had low magnesium level patient was given magnesium in ER. She was given 30 mg of Toradol IV for headache. CT scan of her head did not show any acute problem. Dragon Disclaimer: Dragon Disclaimer: This electronic medical record was generated, in whole or in part, using a voice recognition dictation system. Departure Departure Impression: Primary Impression: UTI (urinary tract infection) Additional Impressions: Hypomagnesemia syndrome Headache Disposition: HOME, SELF-CARE Condition: IMPROVED Referrals: RAHEL SAUCEDO MD (PCP) please follow up with your doctor this week Patient Instructions: General Headache Without Cause, Hypomagnesemia, Urinary Tract Infection Additional Instructions: Thank you for visiting our Emergency Department. We appreciate you trusting us with your care. If any additional problems come up don't hesitate to return to visit us. Please follow up with your primary care provider so they can plan additional care if needed and know about the problem that you had. If symptoms worsen come back to the Emergency Department. Any concerning symptoms that start such as chest pain, shortness of air, weakness or numbness on one side of the b jian, running high fevers or any other concerning symptoms return to the ER. Scripts Ciprofloxacin Hcl (CIPRO) 500 Mg Tablet 1 TAB PO BID for 7 Days, #14 TAB 0 Refills Prov: RAINER EAST DO 12/14/19 Justicifation of Admission Dx: Justifications for Admission: Justification of Admission Dx: N/A Sepsis: Hemodynamic Instability RAINER EAST DO Dec 14, 2019 14:57
[2019-12-14] MEDS ORDERED: CIPR500T94 PO (14:59)
[2019-12-14] MEDS ORDERED: KETOROLAC 30 MG/ML VIAL. IVP ONE (15:30)
[2019-12-14 17:11] VITALS: BP 174/83
--- NOTE | 2019-12-15 15:38 | EKG ---
[facility] [address] [place] [address] Test Date: 2019-12-14 Test Time: 12:07:22 Pat Name: ARNOL DUMONT Department: Room: Gender: F [employer]: : 1975 Requested By: RAINER EAST Order Number: [id number] Reading MD: Measurements Intervals [place] Rate: 55 P: 34 CA: 152 QRS: -28 QRSD: 98 T: 94 QT: 446 QTc: 429 Interpretive Statements SINUS RHYTHM LEFTWARD AXIS R-S TRANSITION ZONE IN V LEADS DISPLACED TO THE LEFT T ABNORMALITY IN HIGH LATERAL LEADS ABNORMAL ECG RI6.02 No previous ECG available for comparison
== END 2019-12-14 17:28 | disposition home or self-care (01) ==
LOC: ER 11:46
DX: N39.0 Urinary tract infection, site not specified (principal); E83.42 Hypomagnesemia; R51 Headache; E11.9 Type 2 diabetes mellitus without complications; E78.00 Pure hypercholesterolemia, unspecified; I10 Essential (primary) hypertension; Z86.73 Personal history of transient ischemic attack (TIA), and cerebral infarction without residual deficits; Z87.891 Personal history of nicotine dependence; Z90.710 Acquired absence of both cervix and uterus; Z88.2 Allergy status to sulfonamides; Z91.041 Radiographic dye allergy status
CPT/HCPCS: 36415; 70450; 80053; 81001; 82962; 83735; 84484; 85025; 87086; 93005; 96365; 96366; 96375; 99285; J0696; J1885; J3475